=== PATIENT | female | born 1995 | race Caucasian/White ===

== ENCOUNTER 2025-10-30 21:16 | Emergency (ER) | payer MEDICAID, SELFPAY ==
--- OUTSIDE RECORDS SUMMARY | 2018-11-02 13:45 | XMS_ITS | Encounter Summary ---
Author Organization [place] [address] Care Team Providers Care Education General Manager Name Role Phone Unavailable Primary Care Provider Unavailabl e Encounter Details Date Type Department Care Team (Late st Contact Info) Description 11/02/2018 1:45 PM EST [facility] [place] [address] Social History Tobacco Use Types Packs/Day Years Used Date Smoking Tobacco: Never Passive Smoke Exposure: Never Smokeless Tobacco: Never Alcohol Use Standard Drinks/Week Comments Never 0 (1 standard drink = 0.6 oz pur e alcohol) PHQ-2 Answer Date Recorded PHQ-2 Total Score 0 11/07/2024 Sexually Active Control Partners Comments Yes I.U.D. Male Comments No Sex and Gender [...] decisions? No 11/07/2024 11:05 AM Ame Hagen ae, RMA documented in this encounter Plan of Treatment Not on file documented as of this encounter Goals Goal Patient Goal Type Associated Problems Recent Progress Patient-Stated? Author Eat better, exercise, reach an ideal body weight General No Kary Muhammad RMA documented as of this encounter Visit Diagnoses Not on filedocumented in this encounter Additional Health Concerns Infection Onset Date Last Indicated Resolved Time COVID-19 11/02/2022 11/02/2022 11/22/2022 10:1 3 PM EST R/O COVID-19 11/07/2024 11/07/2024 11/07/2024 4:11 PM EST RSV 11/07/2024 11/07/2024 12/22/2024 10:1 2 PM EST documented as of this encounter
--- OUTSIDE RECORDS SUMMARY | 2021-04-30 06:10 | XMS_ITS | Encounter Summary ---
Author Organization [place] [address] Care Team Providers Care Movie Machine Operator Name Role Phone Colon Adwoa Gabriela JACINTO Primary Care Provider [phone] [phone] Encounter Details Date Type Department Care Team (Latest Contact Info) Description 04/30/2021 7:10 AM EDT Hospital Encounter [facility] [address] [facility] [place] [address] Left without seen Social History Tobacco Use Types Packs/Day Years [...] as of this encounter Functional Status * Question Answer Date of Assessment Author Is the person deaf or does he/she have serious difficulty hearing? No 11/07/2024 11:05 AM Ame Hagen ae, RMA Is the person blind or does he/she have serious difficulty seeing even when wearing glasses? No 11/07/2024 11:05 AM EST Amelia, Ame M ae, RMA Does this person have seriou s difficulty walking or climbing stairs? No 11/07/2024 11:05 AM Ame Hagen ae, RMA Does this person have difficulty dressing or bathing? No 11/07/2024 11:05 AM Ame Hagen ae, RMA * Is the person deaf or does he/she have serious difficulty hearing? Answer Date of Assessment Author No 02/07/2021 1:08 PM EDT Darling Lugo MA * Is the person blind or does he/she have serious difficulty seeing even when wearing glasses? Answer Date of Assessment Author No 02/07/2021 1:08 PM EDT Darling Lugo MA * Does this person have serious difficulty walking or climbing stairs? Answer Date of Assessment Author No 02/07/2021 1:08 PM EDT Darling Lugo MA * Does this person have difficulty dressing or bathing? Answer Date of Assessment Author No 02/07/2021 1:08 PM EDT Darling Lugo MA * Because of a physical, mental or emotional condition, does this person have difficulty doing errands alone such as visiting a doctor's office or shopping? Answer Date of Assessment Author No 02/07/2021 1:08 PM EDDarling Peralta MA * PHQ-9 Total Score Answer Date of Assessment Author 0 11/07/2024 11:04 AM Ame Hagen RMA * Question Answer Date of Assessment Author Little interest or pleasure in doing things 0 11/07/2024 11:04 AM Ame Hagen ae, MARCINA Feeling down, depressed, or hopeless 0 11/07/2024 11:04 AM Ame Hagen ae, RMA PHQ-2 Total Score 0 11/07/2024 11:04 AM Ame Hagen RMA documented as of this encounter Mental Status * Question Answer Entry Date Author Because of a physical, menta l or emotional condition, does this person have difficulty doing errands alone such as visiting a doctor's office or shopping? No 11/07/2024 11:05 AM EST Amelia, Ame M ae, RMA Because of a physical, menta l or emotional condition, does this person have serious difficulty concentrating, remembering or making decisions? No 11/07/2024 11:05 AM EST Ame Cisneros ae, RMA * Because of a physical, mental or emotional condition, does this person have serious difficulty concentrating, remembering or making decisions? Answer Entry Date Author No 02/07/2021 1:08 PM EDT Darling Lugo MA documented in this encounter Plan of Treatment Not on file documented as of this encounter Goals Goal Patient Goal Type Associated Problems Recent Progress Patient-Stated? Author Eat better, exercise, reach an ideal body weight General No Jump, Kary Villegas, RMA documented as of this encounter Visit Diagnoses Not on filedocumented in this encounter Additional Health Concerns Infection Onset Date Last Indicated Resolved Time COVID-19 11/02/2022 11/02/2022 11/22/2022 10:1 3 PM EST R/O COVID-19 11/07/2024 11/07/2024 11/07/2024 4:11 PM EST RSV 11/07/2024 11/07/2024 12/22/2024 10:1 2 PM EST documented as of this encounter Care Teams Movie Machine Operator Relationship Specialty Start Date End Date Adwoa Colon APRN [address] [place] [id number] PCP - General Nurse Practitioner 04/06/19 documented as of this encounter
--- OUTSIDE RECORDS SUMMARY | 2023-10-05 14:30 | XMS_ITS | Encounter Summary ---
Author Organization [place] [address] Care Team Providers Care Tracer Clerk Name Role Phone Adwoa Colon APRN Primary Care Provider [phone] Encounter Details Date Type Department Care Team (Late st Contact Info) Description 10/05/2023 2:30 PM EST Hospital Encounter [facility] [place] [address] Social History Tobacco Use Types Packs/Day Years [...] when wearing glasses? No 11/07/2024 11:05 AM mAe Hagen ae, RMA Does this person have [...] shopping? No 11/07/2024 11:05 AM Ame Hagen ae RMA Because of a physical, menta l [...] 11/07/2024 11/07/2024 12/22/2024 10:1 2 PM EST Assessment Noted Time PHQ-9 Depression Total Score: 2 07/21/20 22 10:32 AM EDT PHQ-2 Depression Total Score: 2 07/21/20 22 10:32 AM EDT documented as of this encounter Care Teams Tracer Clerk Relationship Specialty Start Date End Date Adwoa Colon APRN [address] [place] [phone] PCP - General Nurse Practitioner 04/06/19 documented as of this encounter
[2025-10-30 21:25] VITALS: BP 154/77; PULSE 83; RESP 18; TEMP 37; O2SAT 98; BMI 29.1
--- NOTE | 2025-10-30 21:32 | XR_ITS ---
PROCEDURE INFORMATION: Exam: XR Left Foot Exam date and time: 10/30/2025 9:58 PM Age: 30 years old Clinical indication: Injury or trauma; Fall; Other: Pain; Additional info: Possible injury from fall TECHNIQUE: Imaging protocol: Radiologic exam of the left foot. Views: 3 or more views. COMPARISON: CR Ankle L 10/30/2025 9:56 PM FINDINGS: Bones/joints: Comminuted fracture of the proximal 5th metatarsal with 8 mm of distraction of the proximal major distal fracture fragment. There may also be a displaced fracture component extending medially from this area. Nondisplaced fracture of the proximal 4th metatarsal can not be excluded. Soft tissues: Normal. IMPRESSION: Proximal 5th metatarsal fractures and questionable 4th metatarsal fracture.
--- NOTE | 2025-10-30 21:33 | XR_ITS ---
PROCEDURE INFORMATION: Exam: XR Left Ankle Exam date and time: 10/30/2025 9:56 PM Age: 30 years old Clinical indication: Injury or trauma; Fall; Other: Pain; Additional info: Possible injury post fall TECHNIQUE: Imaging protocol: Radiologic exam of the left ankle. Views: 3 or more views. COMPARISON: CR XR ANKLE LT MIN 3V 10/30/2025 9:56 PM FINDINGS: Bones/joints: Acute mildly comminuted fracture at the base of the 5th metatarsal with proximal retraction of the proximal fragment approximately 5 mm as well as medial displacement of the medial fragment approximately 4 mm. Small bony spurring along the lateral base of the 4th metatarsal may represent a small osteochondroma. Soft tissues: Mild soft tissue swelling of the lateral foot. IMPRESSION: Acute mildly comminuted fracture at the base of the 5th metatarsal.
[2025-10-30] MEDS: IBUPROFEN 800 MG TABLET PO (21:41)
[2025-10-30] MEDS: ACETAMINOPHEN 500MG TAB 1000 MG PO (21:43)
--- OUTSIDE RECORDS SUMMARY | 2025-10-30 21:55 | XMS_ITS | Encounter Summary ---
Author Organization [place] [address] Care Team Providers Care Program Management Manager Name Role Phone Cely Colonfer Gabriela JACINTO Primary Care Provider [phone] Encounter Details Date Type Department Care Team (Late st Contact Info) Description 02/21/2019 Lab Requisition [facility] [place] [address] [phone] Encounter for screening for malignant neoplasm of cervix Social History Tobacco Use Types Packs/Day Years Used Date Smoking Tobacco: Never Smokeless Tobacco: Never Alcohol Use Standard Drinks/Week Comments No 0 (1 standard drink = 0.6 oz pur e alcohol) Sexually Active Control Partners Comments Yes Male Comments No Sex and Gender Information Value Date Recorded Sex Assigned at Not on file Legal Sex Female 2:06 AM EDT Gender Identity Not on file Sexual Orientation Not on file documented as of this encounter Functional Status * Is the person deaf or does he/she have serious difficulty hearing? Answer Date of Assessment Author No 12/26/2018 7:41 AM Me amita Mcmanus RN * Is the person blind or does he/she have serious difficulty seeing even when wearing glasses? Answer Date of Assessment Author No 12/26/2018 7:41 AM Me amita Mcmanus RN * Does this person have serious difficulty walking or climbing stairs? Answer Date of Assessment Author No 12/26/2018 7:41 AM Me amita Mcmanus RN * Does this person have difficulty dressing or bathing? Answer Date of Assessment Author No 12/26/2018 7:41 AM Me amita Mcmanus RN * Because of a physical, mental or emotional condition, does this person have difficulty doing errands alone such as visiting a doctor's office or shopping? Answer Date of Assessment Author No 12/26/2018 7:41 AM Me amita Mcmanus RN documented as of this encounter Mental Status * Because of a physical, mental or emotional condition, does this person have serious difficulty concentrating, remembering or making decisions? Answer Entry Date Author No 12/26/2018 7:41 AM Me amita Mcmanus RN documented in this encounter Plan of Treatment Not on file documented as of this encounter Goals Goal Patient Goal Type Associated Problems Recent Progress Patient-Stated? Author Eat better, exercise, reach an ideal body weight General No Jump, Kary Nelly, RMA documented as of this encounter Procedures Procedure Name Priority Date/Time Associated Diagnosis Comments HARNESSMAKER CYTOLOGY REQUEST (PAP ONLY) Routine 02/21/2019 12:00 PM EDT Encounter for screening for malignant neoplasm of cervix documented in this encounter Results * HARNESSMAKER CYTOLOGY REQUEST (PAP ONLY) (02/21/2019 12:00 PM EDT) CASE REPORT Gynecologic Cytology Report Case: [id number] Authorizing Provider: Department, [place] Collected: 02/21/2019 [facility] Screen: Alina Gonzalez CT Received: 02/21/2019 1905 Rescreen: Anika Tolentino CT Specimen: LIQUID-BASED PAP - CERVICAL/ENDOCERV ICAL, Cervix, Endocervical 02/22/2019 3:29 PM EDT [facility] PAP FINAL DIAGNOSIS Negative for intraepithelial lesion or malignancy 02/22/2019 3:29 PM EDT [facility] at 1529 EDT MICROSCOPIC DESCRIPTION Microscopic examination is performed and the findings corroborate the diagnosis. 02/22/2019 3:29 PM EDT [facility] PAP SMEAR ADEQUACY Satisfactory for evaluation 02/22/2019 3:29 PM EDT [facility] ENDOCERVICAL T-ZONE Transformation zone absent. This is not unusual in a woman 02/22/2019 3:29 PM EDT [facility] EMBEDDED IMAGES 9 3:29 PM EDT [facility] PAP DISCLAIMER The Pap Smear is a screening test that aids in the detection of cervical cancer and cancer precursors. Both false positive and false negative results can occur. The test should be used at regular intervals, and positive results should be confirmed before definitive therapy. Processed using the ThinPrep Emissions Technician Automated cytology screening device ([employer]). 02/22/2019 3:29 PM EDT [facility] Thin Prep ENDOCERVICAL STRUCTURE / Unknown 02/21/2019 12:00 PM EDT 02/21/2019 7:05 PM EDT [facility] Department CYTOLOGY ORDERABLES Final Result [facility] [address] [place] [address] documented in this encounter Visit Diagnoses Diagnosis Encounter for screening for malignant neoplasm of cervix Screening for malignant neoplasm of the cervix documented in this encounter Additional Health Concerns Infection Onset Date Last Indicated Resolved Time COVID-19 11/02/2022 11/02/2022 11/22/2022 10:1 3 PM EST R/O COVID-19 11/07/2024 11/07/2024 11/07/2024 4:11 PM EST RSV 11/07/2024 11/07/2024 12/22/2024 10:1 2 PM EST documented as of this encounter Care Teams Program Management Manager Relationship Specialty Start Date End Date Adwoa Colon APRN [address] [place] [phone] PCP - General Nurse Practitioner 04/06/19 documented as of this encounter
--- OUTSIDE RECORDS SUMMARY | 2025-10-30 21:55 | XMS_ITS | Continuity of Care Document ---
Author Organization [facility] Address [address] [place] [address] Phone Care Team Providers Care Accounts Receivable Coordinator Name Role Phone ColonAdwoa Vicente JACINTO Primary Care Provider [phone] Encounters Date Type Department Care Team Description 07/22/2025 Travel 07/22/2025 11:00 AM EDT Telemedicine [facility] Video Visits [address] [place] [address] Tonya Montalvo APRN Upper respiratory tract infection, unspecified type (Primary Dx) 07/22/2025 Nurse Triage SEP Nurse Now [address] [place] [address] Anisha Lal RN 05/12/2025 10:45 AM EDT Clinical Support [facility] [address] [place] [address] Ame Cisneros RMA Encounter for surveillance of injectable contraceptive (Primary Dx) 02/19/2025 10:00 AM EDT [facility] [address] [place] [address] Lisa Li RMA Menorrhagia with regular cycle (Primary Dx); Encounter for surveillance of injectable contraceptive 02/12/2025 Telephone [facility] Crit [address] [place] [address] Lina Finn APRN Appointment Needed 01/25/2025 Refill [facility] [address] [address] Kayla Conti, DO Medication Refill 12/01/2024 9:00 AM EST Clinical Support [address] [address] Lisa Li, A Encounter for surveillance of injectable contraceptive (Primary Dx) 11/07/2024 11:15 AM EST Office Visit [facility] [address] [facility] [place] [address] Adwoa Colon APRN Acute cough (Primary Dx); Viral URI; Major depressive disorder, recurrent episode, mild 09/11/2024 9:00 AM EDT Clinical Support [address] [address] Jennifer Garcia CNA Encounter for initial prescription of injectable contraceptive (Primary Dx) 09/07/2024 10:45 AM EDT [facility] [address] Kayla Conti, DO Well woman exam with routine gynecological exam (Primary Dx); Encounter for IUD removal; Encounter for initial prescription of injectable contraceptive; Menorrhagia with regular cycle 05/27/2024 6:45 PM EDT Office Visit [facility] Urgent Care [place] [address] Shameka Cruz MD Flu-like symptoms (Primary Dx) 03/07/2024 9:30 AM EDT Office Visit [facility] [address] [facility] [place] [address] Adwoa Colon APRN Acute midline low back pain without sciatica (Primary Dx); Acute midline thoracic back pain; Acute cough 02/29/2024 9:15 AM EDT Patient Outreach [address] [address] WIC (APPOINTMENT DEFERRED ) 01/31/2024 9:45 AM EDT Office Visit [facility] Jaskaran Morel Edgardo Ranulfof [facility] [address] [place] [address] Kayla Conti, DO Encounter for IUD insertion (Primary Dx); Menorrhagia with regular cycle 01/27/2024 1:00 PM EST Office Visit [facility] Jaskaran Winchesterf [address] [place] [address] [place] [address] Kayla Conti, DO Encounter for IUD insertion (Primary Dx); Menorrhagia with regular cycle; Cervical stenosis (uterine cervix); Negative test 01/25/2024 11:06 AM EST - 01/25/2024 11:59 PM EST Hospital Encounter [facility] DONNIE [address] [address] History of gestational diabetes Discharge Disposition: Home or Self Care 01/20/2024 Telephone [facility] Gingers Maria Teresa Edgardo Ranulfof [address] [place] [address] [place] [address] Kayla Conti, IUD (Menorrhagia) 01/20/2024 10:45 AM EST Visit [facility] [address] [place] [address] [place] [address] Kayla Conti, care following delivery (Primary Dx); History of gestational diabetes; Menorrhagia with regular cycle 12/09/2023 Telephone [facility] Gingers [facility] [address] [place] [address] [place] [address] Carmenza Gerber MD Other 12/07/2023 8:45 AM EST Patient Outreach [address],LD WIC (WIc PP Cert) 10/29/2023 9:15 AM EST Visit SEP [facility] Crit [address] [place] [address] Yolie Rasmussen MD care following delivery (Primary Dx) 10/20/2023 12:10 AM EST - 10/21/2023 7:17 PM EST Hospital Encounter EDG [address] [place] [address] Amarilis Gill DO Guyton, Lisa M, MD Discharge Disposition: Home or Self Care 10/20/2023 1:18 AM EST Anesthesia Event [facility] [address] [place] [id number] Melvin Henry MD Reinhardt, David, [facility] 10/20/2023 1:25 AM EST - 10/20/2023 3:25 AM EST Surgery ED[facility] [place] [address] Carmenza Gerber MD REPEAT SECTION 10/20/2023 Travel 10/19/2023 Travel 10/19/2023 10:52 PM EST - 10/19/2023 11:19 PM EST Emergency [facility] [address] [facility] [place] [id number] Maria Luisa Childers MD Uterine contractions during (Primary Dx) Discharge Disposition: Home or Self Care 10/18/2023 Travel 10/18/2023 9:00 AM EST ROUTINE FOLLOW UP OB VISIT SEP Women[facility] Crit [address] [place] [address] Amarilis Gill DO Supervision of other normal , antepartum (Primary Dx); Diet controlled gestational diabetes mellitus (GDM) in third trimester; IUD failure, ; History of delivery 10/12/2023 Telephone [facility] Women's [facility] Crit [address] [place] [address] Jenni Scanlon APRN Appointment Needed (NST) 10/12/2023 9:30 AM EST ROUTINE FOLLOW UP OB VISIT [facility] Women's [facility] Crit [address] [place] [address] Jenni Scanlon APRN Supervision of other normal , antepartum (Primary Dx); History of delivery; Diet controlled gestational diabetes mellitus (GDM) in third trimester 10/05/2023 2:30 PM EST Hospital Encounter EDG OB PREADM NURSE [facility] [place] [address] 10/05/2023 10:52 AM EST - 10/05/2023 11:59 PM EST Hospital Encounter EDG PERINATOLOGY [facility] [address] [place] [place] [address] Kayla Conti DO Diet controlled gestational diabetes mellitus (GDM) in third trimester; Low weight gain during in third trimester Discharge Disposition: Home or Self Care 09/27/2023 2:00 PM EST ROUTINE FOLLOW UP OB VISIT [place] [address] [place] [address] Yolie Rasmussen MD Encounter for supervision of other normal in third trimester (Primary Dx); Supervision of other normal , antepartum; History of delivery; Diet controlled gestational diabetes mellitus (GDM) in third trimester; Family history of SIDS (sudden syndrome); IUD failure, 09/13/2023 9:00 AM EDT ROUTINE FOLLOW UP OB VISIT [facility] Cri [address] [place] [address] Celia Dang DO Supervision of other normal , antepartum (Primary Dx); Family history of SIDS (sudden infant syndrome); IUD failure, ; History of delivery; Diet controlled gestational diabetes mellitus (GDM) in third trimester; History of recurrent miscarriages 09/08/2023 1:00 PM EDT Telemedicine [facility] [address] [facility] [address] [place] [phone],LD Gestational diabetes mellitus (GDM) affecting (Primary Dx) 08/31/2023 8:00 AM EDT ROUTINE FOLLOW UP OB VISIT [facility] Cri [address] [place] [address] Kayla Conti DO Encounter for supervision of other normal in third trimester (Primary Dx); Diet controlled gestational diabetes mellitus (GDM) in third trimester; History of delivery 08/27/2023 Telephone [facility] [address] [facility] [address] [place] [address] Adwoa Colon APRN Patient Education 08/26/2023 Orders Only [facility] Women's [facility] Crit [address] [place] [address] Kayla Conti DO Gestational diabetes mellitus (GDM) affecting (Primary Dx) 08/20/2023 4:00 PM EDT ROUTINE FOLLOW UP OB VISIT [facility] [address] [place] [address] Kayla Conti DO Encounter for supervision of other normal in third trimester (Primary Dx); History of delivery; Supervision of other normal , antepartum; Diet controlled gestational diabetes mellitus (GDM) in third trimester; Low weight gain during in third trimester 08/19/2023 Travel 08/18/2023 2:15 PM EDT Patient Outreach [facility] [address] [place] [address] Cindy Avendaño RN WIC (WIC PN Cert) 08/06/2023 Orders Only [facility] Women's [facility] [address] [facility] [place] [address] Ciera Onofre RN Gestational diabetes mellitus (GDM) affecting (Primary Dx) 08/05/2023 9:20 AM EDT - 08/05/2023 11:59 PM EDT Hospital Encounter [facility] [address] [place] [address] Abnormal O'Hayes glucose challenge test, antepartum Discharge Disposition: Home or Self Care 08/03/2023 Orders Only [facility]'s [facility] [address] [facility] [place] [address] Seilhamer, Amarilis M, DO Abnormal O'Hayes glucose challenge test, antepartum (Primary Dx) 08/03/2023 Telephone [facility] WOMENS [facility] [address] [place] [address] Amarilis Gill, DO Scheduled 08/03/2023 8:22 AM EDT - 08/03/2023 11:59 PM EDT Hospital Encounter EDG [facility] DONNIE [address] [place] [address] Encounter for supervision of other normal in second trimester Discharge Disposition: Home or Self Care 08/03/2023 8:00 AM EDT ROUTINE FOLLOW UP OB VISIT [address] [address] Amarilis Glil, DO Encounter for supervision of other normal in third trimester (Primary Dx); History of delivery; IUD failure, ; Supervision of other normal , antepartum; Family history of SIDS (sudden syndrome); History of recurrent miscarriages 07/09/2023 11:00 AM EDT ROUTINE FOLLOW UP OB VISIT [address] [address] Amarilis Gill, DO Encounter for supervision of other normal in second trimester (Primary Dx); Hematuria, unspecified type; BMI 32.0-32.9,adult; History of delivery; IUD failure, ; Supervision of other normal , antepartum 06/23/2023 Travel 06/23/2023 10:52 AM EDT - 06/23/2023 11:59 PM EDT Hospital Encounter EDG PERINATOLOGY [facility] [place] [address] Isela Perez, MANJINDER Supervision of other normal , antepartum Discharge Disposition: Home or Self Care 05/28/2023 10:15 AM EDT ROUTINE FOLLOW UP OB VISIT [facility] [address] [place] [address] Kayla Conti, DO Supervision of other normal , antepartum (Primary Dx); Family history of SIDS (sudden syndrome); IUD failure, ; Stress at home; History of delivery 04/30/2023 3:34 PM EDT - 04/30/2023 11:59 PM EDT Hospital Encounter EDG LAB DONNIE [address] [id number] First trimester screening Discharge Disposition: Home or Self Care 04/28/2023 Patient Outreach [facility] [address] [place] [address] Michelle Nettles Transportation 04/27/2023 Patient Outreach [facility] [address] [place] [address] Michelle Nettles Referral 04/27/2023 2:45 PM EDT INITIAL VISIT [address] [place] [address] Isela Perez, MANJINDER Supervision of other normal , antepartum (Primary Dx); History of delivery; Family history of SIDS (sudden syndrome); IUD failure, ; First trimester screening; Stress at home 04/20/[address] [place] [address] Eden Miranda RN Ultrasound 04/20/2023 10:55 AM EDT - 04/20/2023 11:59 PM EDT Hospital Encounter EDG PERINATOLOGY [facility] [place] [address] Lina Finn APRN Uterine size date discrepancy , first trimester Discharge Disposition: Home or Self Care 04/16/[address] [address] Eden Miranda, VIDHYA Ultrasound 04/14/2023 11:30 AM EDT INITIAL VISIT [place] [address] [facility] [place] [address] Eden Miranda RN First trimester screening (Primary Dx); Uterine size date discrepancy , first trimester 12/29/2022 4:30 PM EST Office Visit [address] [place] [address] Malcolm Herring MD Acute bacterial sinusitis (Primary Dx) 11/17/2022 10:30 AM EST Office Visit [address] [place] [address] Adwoa Colon APRN [place] eye disease of left eye (Primary Dx) 11/02/2022 11:15 AM EST Office Visit [address] [place] [address] Serena Mckeon MD Person under investigation for COVID-19 (Primary Dx); COVID-19 virus detected; Nausea 10/29/2022 1:45 PM EST Office Visit [address] [place] [address] Adwoa Colon APRN Acute otitis media with effusion of left ear (Primary Dx) 10/28/[address] [address] Adwoa Colon APRN Appointment Needed (Left ear pain ) 09/29/2022 Patient Outreach [place] [address] [place] [address] Adwoa Colon APRN Central Patient Navigator Outreach (PAP) 09/22/2022 2:15 PM EDT Telemedicine [address] [place] [address] Adwoa Colon APRN Otalgia of both ears (Primary Dx) 09/22/[address] [place] [address] Adwoa Colon APRN Appointment Needed (ears) 07/21/2022 Telephone [facility] [address] [place] [address] Adwoa Colon APRN Results (XR LUMBAR SPINE AP AND LATERAL) 07/21/2022 Travel 07/21/2022 11:07 AM EDT - 07/21/2022 11:59 PM EDT Hospital Encounter [facility] XRAY [address] [place] [address] Acute midline low back pain with left-sided sciatica Discharge Disposition: Home or Self Care 07/21/2022 10:30 AM EDT Office Visit [facility] [address] [place] [address] Adwoa Colon APRN Acute midline low back pain with left-sided sciatica (Primary Dx) 02/19/2022 Patient Outreach [facility] [address] [place] [address] Adwoa Colon APRN Central Patient Navigator Outreach (PAP) 01/31/2022 Orders Only [facility] [address] [place] [address] Adwoa Colon APRN 01/30/2022 11:00 AM EST Office Visit [facility] [address] [place] [address] Adwoa Colon APRN Well adult exam (Primary Dx); Situational depression; Tired 12/12/2021 4:00 PM EST Office Visit [facility] [address] [place] [address] [address] [place] [address] Amarilis Gill, IUD check up (Primary Dx) 11/10/2021 1:30 PM EST Office Visit [facility] [address] [facility] [address] [place] [address] Amarilis Gill, DO Procedure contraindicated (Primary Dx); Encounter for IUD insertion 09/15/2021 Telephone [facility] Jaskaran Singh [facility] [address] [place] [address] Amarilis Gill DO Prior Authorization (iud) 09/15/2021 Travel 09/15/2021 9:00 AM EDT Visit [facility] Jaskaran Singh [facility] [address] [place] [address] Amarilis Gill DO Post-operative state (Primary Dx); History of delivery; Menorrhagia with regular cycle 08/11/2021 Travel 08/11/2021 1:10 PM EDT Visit [facility] Jaskaran Singh [facility] [address] [place] [address] Carmenza Gerber MD Post-operative state (Primary Dx); Delivery of by section 08/01/2021 10:07 AM EDT - 08/03/2021 5:02 PM EDT Hospital Encounter EDG [address] [place], [place] [id number] Alan Guzman MD Discharge Disposition: Home or Self Care 08/01/2021 Travel 08/01/2021 12:00 PM EDT - 08/01/2021 2:00 PM EDT Surgery [facility]G [facility] [place] [address] Alan Guzman MD REPEAT SECTION 08/01/2021 1:25 PM EDT Anesthesia Event EDG [facility] [place] [address] Joe Hollis MD Merkle Serey, Jennifer L, NP 07/29/2021 Travel 07/29/2021 3:20 PM EDT ROUTINE FOLLOW UP OB VISIT [facility] Jaskaran [facility] Samantha [address] [place] [address] [address] [place] [address] Yolie Rasmussen MD Encounter for supervision of other normal in third trimester (Primary Dx); History of delivery 07/29/2021 12:36 PM EDT - 07/29/2021 11:59 PM EDT Hospital Encounter ED[facility] DONNIE DS [address] [place] [address] Covid19, Edg Lab [place] Ds Pre-op testing; Encounter for laboratory testing for COVID-19 virus Discharge Disposition: Home or Self Care 07/24/2021 Travel 07/24/2021 2:20 PM EDT ROUTINE FOLLOW UP OB VISIT [facility] [address] [place] [address] Yolie Rasmussen MD Encounter for supervision of other normal in third trimester (Primary Dx); History of delivery; BMI 32.0-32.9,adult; Abnormal O'Hayes glucose challenge test, antepartum 07/15/2021 Travel 07/15/2021 8:40 AM EDT ROUTINE FOLLOW UP OB VISIT [address] [place] [address] Lina Finn APRN Encounter for supervision of other normal in third trimester 07/07/2021 Travel 07/07/2021 1:20 PM EDT ROUTINE FOLLOW UP OB VISIT [facility] Women's H Ed[facility] [address] [facility] [address] [place] [address] Isela Perez CNFei Encounter for supervision of other normal in third trimester (Primary Dx); History of delivery 07/04/2021 Travel 07/04/2021 10:50 AM EDT ROUTINE FOLLOW UP OB VISIT [facility] Women's H [facility] [address] [facility] [address] [place] [address] Alan Guzman MD Encounter for supervision of other normal in third trimester (Primary Dx) 06/26/2021 1:00 PM EDT Office Visit [facility] OB PREADM NURSE [address] [place] [address] 06/20/2021 Travel 06/20/2021 1:10 PM EDT ROUTINE FOLLOW UP OB VISIT [facility] Women's [address] [place] [address] Carmenza Gerber MD Encounter for supervision of other normal in third trimester (Primary Dx); Abnormal O'Hayes glucose challenge test, antepartum; History of delivery 06/16/2021 Travel 06/16/2021 9:15 AM EDT Office Visit [facility] [address] [place] [address] Adwoa Colon APRN Pain in both lower extremities (Primary Dx); Third trimester 06/13/2021 Travel 06/13/2021 9:20 AM EDT ROUTINE FOLLOW UP OB VISIT [facility] Jaskaran [address] [place] [address] Kayla Conti DO Encounter for supervision of other normal in third trimester (Primary Dx); History of delivery 05/30/2021 Travel 05/30/2021 1:00 PM EDT ROUTINE FOLLOW UP OB VISIT [facility] Gingers [address] [place] [address] Alan Guzman MD History of delivery (Primary Dx); Encounter for supervision of other normal in second trimester 05/19/2021 Telephone [facility] Womens [address] [address] Lina Finn APRN Scheduled ( INFORMATION ) 05/16/2021 Travel 05/16/2021 1:00 PM EDT ROUTINE FOLLOW [facility] [address] [place] [address] Lina Finn APRN Abnormal O'Hayes glucose challenge test, antepartum (Primary Dx); Encounter for supervision of other normal in second trimester 04/30/2021 8:45 AM EDT - 04/30/2021 11:59 PM EDT Hospital Encounter EDG LAB DONNIE DS [address] [place] [address] Abnormal O'Hayes glucose challenge test, antepartum Discharge Disposition: Home or Self Care 04/30/2021 Orders Only [facility] [address] [place] [address] Alan Guzman MD Abnormal O'Hayes glucose challenge test, antepartum (Primary Dx) 04/30/2021 7:10 AM EDT Hospital Encounter [facility] [address] [place] [address] Left without seen 04/30/2021 Travel 04/17/2021 11:11 AM EDT - 04/17/2021 11:59 PM EDT Hospital Encounter ED[facility] LAB DONNIE DS [address] [place] [address] Encounter for supervision of other normal in second trimester Discharge Disposition: Home or Self Care 04/17/2021 Travel 04/14/2021 Travel 04/14/2021 4:00 PM EDT ROUTINE FOLLOW UP OB VISIT [facility]'s [address] [place] [address] Alan Guzman MD Encounter for supervision of other normal in second trimester (Primary Dx) 03/26/2021 Telephone [facility] Women's [address] [address] Eden Dudley RN Abdominal Pain 03/21/2021 Travel 03/21/2021 1:15 PM EDT - 03/21/2021 11:59 PM EDT Hospital Encounter EDG PERINATOLOGY [facility] [place] [address] Jenni Scanlon APRN Encounter for supervision of other normal in second trimester; Circumvallate placenta, second trimester Discharge Disposition: Home or Self Care 03/14/2021 Travel 03/14/2021 1:50 PM EDT ROUTINE FOLLOW UP OB VISIT [facility] Women's [address] [place] [address] Alan Guzman MD Encounter for supervision of other normal in second trimester (Primary Dx); History of delivery 02/26/2021 Travel 02/19/2021 [facility] [address] [place] [address] Jenni Scanlon APRN Encounter for supervision of other normal in second trimester (Primary Dx); Circumvallate placenta, second trimester 02/14/2021 Travel 02/14/2021 12:57 PM EDT - 02/14/2021 11:59 PM EDT Hospital Encounter EDG PERINATOLOGY [facility] [place] [address] Jenni Scanlon APRN Uterine size date discrepancy Discharge Disposition: Home or Self Care 02/14/2021 10:40 AM EDT ROUTINE FOLLOW [facility] [address] [place] [address] Yolie Rasmussen MD Encounter for supervision of other normal in second trimester (Primary Dx); History of delivery 02/07/2021 1:15 PM EDT Office Visit [facility] [address] [place] [address] Adwoa Colon APRN Nausea and vomiting, intractability of vomiting not specified, unspecified vomiting type (Primary Dx); Second trimester 02/06/2021 Travel 01/28/2021 Travel 01/20/2021 2:28 PM EST - 01/20/2021 11:59 PM EST Hospital Encounter ED[facility] LAB DONNIE DS [address] [place] [address] First trimester screening; BMI 32.0-32.9,adult Discharge Disposition: Home or Self Care 01/20/2021 Travel 01/20/2021 Telephone [facility] Women's [facility] [address] [facility] [place] [address] Tatiana Evangelista, VIDHYA Results 01/15/2021 Travel 01/15/2021 Telephone [facility] [address] [facility] [address] Tatiana Evangelista, VIDHYA Appointment Needed 01/15/2021 9:30 AM EST Telemedicine [facility] [address] [facility] [place] [address] First trimester screening (Primary Dx) 01/15/2021 11:30 AM EST INITIAL VISIT [address] [place] [address] Jenni Scanlon, SPECIAL SERVICE REPRESENTATIVE Encounter for supervision of other normal in second trimester (Primary Dx); First trimester screening; Vaginal discharge; History of delivery; BMI 32.0-32.9,adult 01/14/2021 Travel 12/16/[address] [place] [address] Jenni Scanlon, SPECIAL SERVICE REPRESENTATIVE Other 12/16/2020 Travel 09/25/2019 Patient Outreach [facility] [address] [place] [address] Jair Grant RN ED Follow-Up Call 09/23/2019 11:45 PM EDT - 09/24/2019 1:07 AM EDT Emergency [facility] [address] [facility] [place] [address] Onofre Soriano MD Irritable bowel syndrome with diarrhea (Primary Dx) Discharge Disposition: Home or Self Care 09/23/2019 Travel 09/21/2019 Telephone [facility] [address] [place] [address] Merlene Cueva CMA Prior Authorization (brian gilliland a PA) 09/21/2019 10:15 AM EDT Office Visit [facility] [address] [place] [address] Serena Mckeon MD Irritable bowel syndrome with diarrhea (Primary Dx) 09/19/2019 8:01 AM EDT - 09/19/2019 11:59 PM EDT Hospital Encounter [facility] Ultrasound [address] [place] [address] Malcolm Herring MD Right sided abdominal pain Discharge Disposition: Home or Self Care 09/15/2019 1:50 PM EDT - 09/15/2019 11:59 PM EDT Hospital Encounter [facility] [address] [place] [address] Chronic diarrhea Discharge Disposition: Home or Self Care 09/14/2019 1:45 PM EDT Office Visit [facility] [address] [place] [address] Malcolm Herring MD Right sided abdominal pain (Primary Dx); Pyuria; Chronic diarrhea; Need for influenza vaccination 08/11/2019 12:30 PM EDT - 08/11/2019 11:59 PM EDT Hospital Encounter [place] [address] [place] [address] Cindy Vallejo, PT Discharge Disposition: Home or Self Care 08/03/2019 1:00 PM EDT - 08/03/2019 11:59 PM EDT Hospital Encounter [address] [place] [address] Cindy Vallejo, PT Discharge Disposition: Home or Self Care 08/01/2019 1:00 PM EDT - 08/01/2019 11:59 PM EDT Hospital Encounter [address] [place] [address] Cindy Vallejo, PT Discharge Disposition: Home or Self Care 07/21/2019 11:53 AM EDT - 07/21/2019 11:59 PM EDT Hospital Encounter [address] [place] [address] Cindy Vallejo, PT Discharge Disposition: Home or Self Care 07/18/2019 3:23 PM EDT - 07/18/2019 11:59 PM EDT Hospital Encounter [address] [address] Cindy Vallejo, PT Discharge Disposition: Home or Self Care 07/14/2019 11:49 AM EDT - 07/14/2019 11:59 PM EDT Hospital Encounter [facility] Physical Therapy [facility] [address] [place] [address] Cindy Vallejo, PT Discharge Disposition: Home or Self Care 07/06/2019 1:45 PM EDT - 07/06/2019 11:59 PM EDT Hospital Encounter [facility] [address] [place] [address] Chronic left shoulder pain Discharge Disposition: Home or Self Care 07/06/2019 1:15 PM EDT Office Visit [facility] [address] [place] [address] Serena Mckeon MD Chronic left shoulder pain (Primary Dx); Major depressive disorder, recurrent episode, mild 05/16/2019 11:15 AM EDT Office Visit [facility] [address] [place] [address] Serena Mckeon MD Major depressive disorder, recurrent episode, mild (Primary Dx) 04/06/2019 Orders Only [facility] [address] [place] [address] Adwoa Colon APRN Vitamin D deficiency (Primary Dx) 04/06/2019 9:00 AM EDT Office Visit [place] [address] [place] [address] Adwoa Colon APRN Well adult exam (Primary Dx); Trapezius muscle spasm 02/21/2019 Lab Requisition [facility] [place] [address] Department, [place] [facility] Encounter for screening for malignant neoplasm of cervix 01/30/2019 Telephone [facility]'s [employer] [address] [place] [address] Yolie Rasmussen MD Precertification 01/30/2019 1:00 PM EDT Visit [facility] [address] [place] [address] Yolie Rasmussen MD care following delivery (Primary Dx); Encounter for initial prescription of contraceptive pills 01/06/2019 1:40 PM EST Visit [facility] [address] [place] [address] Alan Guzman MD Status post (Primary Dx) 12/27/2018 2:00 PM EST - 12/27/2018 11:59 PM EST Hospital Encounter [place] [address] [place] [address] Discharge Disposition: Home or Self Care 12/23/2018 7:37 AM EST - 12/26/2018 2:23 PM EST Hospital Encounter [place] [address] [place] [address] Magnolia Spangler DO Discharge Disposition: Home or Self Care 12/24/2018 12:30 AM EST - 12/24/2018 2:30 AM EST Surgery [facility] [place] [address] Magnolia Spangler DO PRIMARY SECTION 12/23/2018 2:04 PM EST Anesthesia Event [facility] [place] [address] Bushra Burris MD Wells, Meagan, PHYLLIS 12/23/2018 7:30 AM EST - 12/23/2018 7:36 AM EST Hospital Encounter [place] [address] Discharge Disposition: Home or Self Care 12/20/2018 1:10 PM EST ROUTINE FOLLOW UP OB VISIT [facility] [address] [place] [address] Magnolia Spangler DO Encounter for supervision of other normal in third trimester (Primary Dx) 12/16/2018 1:10 PM EST ROUTINE FOLLOW UP OB VISIT [facility]f [address] [place] [address] Jessica Sandoval MD Encounter for supervision of other normal in third trimester (Primary Dx) 12/07/2018 1:10 PM EST ROUTINE FOLLOW UP OB VISIT [facility] Women's [address] [place] [address] Magnolia Spangler, Encounter for supervision of other normal in third trimester (Primary Dx); Encounter for supervision of other normal in first trimester 12/02/2018 9:20 AM EST ROUTINE FOLLOW UP OB VISIT [facility] Women's [facility] [address] [facility] [place] [address] Magnolia Spangler, Encounter for supervision of other normal in first trimester (Primary Dx) 11/25/2018 4:00 PM EST ROUTINE FOLLOW UP OB VISIT [facility]'s [address] [place] [address] Alan Guzman MD Encounter for supervision of other normal in third trimester (Primary Dx); Screen for STD (sexually transmitted disease) 11/17/2018 5:45 PM EST Office Visit [facility] Urgent Care [address] [address] Rudolph Pacheco, DO Viral URI (Primary Dx) 11/11/2018 1:40 PM EST ROUTINE FOLLOW UP OB VISIT [facility] [address] [place] [address] Alan Guzman MD Encounter for supervision of other normal in third trimester (Primary Dx); Pyelectasis of fetus on ultrasound; Decreased movements in third trimester, single or unspecified fetus 11/07/2018 Telephone [facility] LDRP [facility] [place] [address] Jessica Sandoval MD Results (urine results) 11/02/2018 2:39 PM EST - 11/02/2018 11:59 PM EST Hospital Encounter [facility] PERINATOLOGY US [facility] [place] [address] Magnolia Spangler DO Pyelectasis of fetus on ultrasound Discharge Disposition: Home or Self Care 11/02/2018 1:45 PM EST Hospital Encounter [facility] OB PREADM NURSE [facility] [place] [address] 10/26/2018 4:00 PM EST ROUTINE FOLLOW UP OB VISIT [facility] [address] [place] [address] Jessica Sandoval MD Supervision of other normal , antepartum (Primary Dx); Pyelectasis of fetus on ultrasound 10/12/2018 1:20 PM EST ROUTINE FOLLOW UP OB VISIT [address] [place] [address] Yolie Rasmussen MD Encounter for supervision of other normal in third trimester (Primary Dx); Pyelectasis of fetus on ultrasound; Encounter for supervision of other normal in first trimester 09/17/2018 10:18 AM EDT - 09/17/2018 11:59 PM EDT Hospital Encounter [facility] DS [address] [place], [place] [id number] Encounter for supervision of other normal in second trimester Discharge Disposition: Home or Self Care 09/14/2018 1:10 PM EDT ROUTINE FOLLOW UP OB VISIT [address] [place] [phone] Magnolia Spangler DO Encounter for supervision of other normal in second trimester (Primary Dx); Pyelectasis of fetus on ultrasound 08/17/2018 2:43 PM EDT - 08/17/2018 11:59 PM EDT Hospital Encounter [facility] PERINATOLOGY [facility] [place] [address] Yolie Rasmussen MD Encounter for repeat ultrasound of pyelectasis, antepartum, single or unspecified fetus Discharge Disposition: Home or Self Care 08/17/2018 2:30 PM EDT ROUTINE FOLLOW UP OB VISIT [address] [place] [phone] Yolie Rasmussen MD Pyelectasis of fetus on ultrasound 08/09/2018 Telephone [facility] [address] [place] [address] Yolie Rasmussen MD Results 08/04/2018 4:00 PM EDT Clinical Support [facility] [address] [place] [address] Andreia Gray RDMS Encounter for anatomic survey (Primary Dx) 07/20/2018 1:40 PM EDT ROUTINE FOLLOW UP OB VISIT [facility] [address] [place] [phone] Alan Guzman MD Encounter for supervision of other normal in second trimester (Primary Dx) 06/22/2018 Telephone [facility] [address]rd [place] [address] Romi Quiroga, Clerical Staff Advice Only (Genetic counseling does not need authorization. The patient will be contacted in order to facilitate scheduling an appointment with the genetic counselors. ) 06/22/2018 1:10 PM EDT ROUTINE FOLLOW UP OB VISIT [address] [place] [phone] Magnolia Spangler DO Encounter for supervision of other normal in second trimester (Primary Dx); Encounter for supervision of other normal in first trimester 06/03/2018 4:44 PM EDT - 06/03/2018 11:59 PM EDT Hospital Encounter [facility] [address] [place] [address] Encounter for supervision of other normal in first trimester Discharge Disposition: Home or Self Care 05/24/2018 1:00 PM EDT Clinical Support [facility] [address] [place] [address] Andreia Gray, RDMS Uterine size date discrepancy, first trimester (Primary Dx) 05/24/2018 1:30 PM EDT INITIAL VISIT [facility] [address] [place] [address] Jenni Scanlon, SPECIAL SERVICE REPRESENTATIVE Encounter for supervision of other normal in first trimester (Primary Dx); History of recurrent miscarriages 04/20/2018 Patient Outreach [facility] [address] [facility] [place] [address] Ginger, Debby Ella, SASH CLAMP OPERATOR Care Transition; ED Follow-Up Call 04/19/2018 7:05 PM EDT - 04/19/2018 9:11 PM EDT Emergency [facility] [address] [facility] [place] [address] Malcolm Vergara MD Dozier, Emily J, DO Upper abdominal pain (Primary Dx) Discharge Disposition: Home or Self Care 04/19/2018 Patient Outreach [address] [address] Ginger, Debby Ella, SASH CLAMP OPERATOR Care Transition; ED Follow-Up Call 04/15/2018 8:04 PM EDT - 04/15/2018 9:28 PM EDT Emergency [place] [address] [place], [place] [id number] Vic Wilson MD Positive test (Primary Dx) Discharge Disposition: Home or Self Care 04/11/2018 Patient Outreach [facility] [address] [place] [address] Ginger, Debby Ella, SASH CLAMP OPERATOR Care Transition; ED Follow-Up Call 04/08/2018 5:48 PM EDT - 04/08/2018 6:46 PM EDT [facility] [address] [facility] [place] [address] Kvng Nicolas MD test negative (Primary Dx) Discharge Disposition: Home or Self Care 03/15/2018 Patient Outreach [address] [address] GingerDevonteDebby Ella, SASH CLAMP OPERATOR Care Transition; ED Follow-Up Call 03/14/2018 4:50 PM EDT - 03/14/2018 6:20 PM EDT Emergency [facility] [address] [place] [address] Fawad Sullivan MD Sprain of collateral ligament of right knee, initial encounter (Primary Dx) Discharge Disposition: Home or Self Care 03/08/2018 Patient Outreach [facility] [address] [place] [address] Debby Miles LPN Care Transition; ED Follow-Up Call 03/07/2018 6:29 PM EDT - 03/07/2018 8:36 PM EDT [facility] [address] [place] [address] Erich Wyman MD Thoracic myofascial strain, initial encounter (Primary Dx) Discharge Disposition: Home or Self Care 02/07/2018 12:59 PM EDT - 02/07/2018 2:50 PM EDT [facility] [address] [place] [address] Mildred Islas MD Dizziness (Primary Dx); Weakness Discharge Disposition: Home or Self Care 03/26/2017 Orders Only [facility] [address] [place] [address] Natasha Banerjee MD Vaginal bleeding in , first trimester (Primary Dx) 03/24/2017 7:38 PM EDT - 03/24/2017 11:59 PM EDT Hospital Encounter [facility] LAB [facility] [address] Encounter for supervision of normal in first trimester, unspecified ; Amenorrhea; Vaginal bleeding in , first trimester Discharge Disposition: Home or Self Care 03/24/2017 10:53 AM EDT - 03/24/2017 7:37 PM EDT Hospital Encounter [facility] DON[facility] DS [address] [place] [address] Encounter for supervision of normal in first trimester, unspecified ; Amenorrhea; Vaginal bleeding in , first trimester Discharge Disposition: Home or Self Care 03/24/2017 10:00 AM EDT [facility] [address] [place] [phone] Deisy Castellanos CCMA Amenorrhea (Primary Dx); Encounter for supervision of normal in first trimester, unspecified ; Vaginal bleeding in , first trimester 03/16/2017 Patient Outreach [facility] Jade [address] [place] [phone] Debby Miles LPN Care Transition; Care Management - Chart Review; ED Follow-Up Call 03/15/2017 7:43 PM EDT - 03/15/2017 9:03 PM EDT [facility] [address] [facility] [place] [address] Onofre Soriano MD Urinary tract infection without hematuria, site unspecified (Primary Dx); First trimester Discharge Disposition: Home or Self Care 02/19/2017 Patient Outreach [facility] [address] [facility] [place] [address] Kary Muhammad RMA ED Follow-Up Call 02/17/2017 8:52 PM EDT - 02/17/2017 10:11 PM EDT [facility] [address] [place] [address] Davion Gilliland DO Cough (Primary Dx); , unspecified gestational age Discharge Disposition: Home or Self Care 08/04/2016 Patient Outreach [facility] [address] [place] [address] Isela Chavis RMA ED Follow-up 07/31/2016 Patient Outreach [facility] [address] [facility] [place] [address] Denise Dickson LPN Care Management - Chart Review (Chart Reveiw-Patient discharged from ED 07/31/2016); ED Follow-Up Call (Initial Follow Up ) 07/30/2016 10:48 PM EDT - 07/31/2016 1:25 AM EDT [facility] [address] [place] [address] Gomez Toussaint MD Urinary tract infection, site unspecified (Primary Dx) Discharge Disposition: Home or Self Care 07/22/2016 1:15 PM EDT - 07/22/2016 2:43 PM EDT Emergency [facility] [address] [place] [address] Mildred Islas MD Tension-type headache, not intractable, unspecified chronicity pattern (Primary Dx) Discharge Disposition: Home or Self Care 12/17/2014 11:15 AM EST Office Visit [facility] [address] [place] [address] Malcolm Herring MD LOM (left otitis media) (Primary Dx); Cervical lymphadenitis 05/17/2014 Abstract [facility] [address] [facility] [address] [place] [address] Magnolia Lal MA 05/16/2014 4:30 PM EDT Office Visit [facility] [address] [facility] [place] [address] Serena Mckeon MD TMJ (dislocation of temporomandibular joint), initial encounter (Primary Dx); Jaw snapping 03/29/2013 4:30 PM EDT Office Visit [facility] [address] [facility] [place] [address] Neal Nguyen MD Sinusitis (Primary Dx); AR (allergic rhinitis) 08/17/2011 9:40 AM EDT Office Visit [facility] [address] [facility] [place] [address] Neal Nguyen MD Sinusitis (Primary Dx); Need for influenza vaccination 07/17/2011 6:14 PM EDT - 07/17/2011 7:06 PM EDT [facility] [address] [facility] [place] [address] Davion Gilliland DO Contusion of right shoulder Discharge Disposition: Home or Self Care 01/20/2001 5:47 AM EST - 01/20/2001 11:59 PM EST Hospital Encounter [facility] RADIOLOGY [facility] Trae Bright 01/13/2001 4:57 PM EST - 01/13/2001 11:59 PM EST Hospital Encounter [facility] LAB [facility] Trae Bright 12/01/2000 7:42 PM EST - 12/01/2000 11:59 PM EST Hospital Encounter [facility] LAB Erich Rosenberg MD 09/24/2000 5:16 PM EST - 09/24/2000 11:59 PM EST Hospital Encounter [facility] LAB Erich Rosenberg MD 07/17/2000 8:59 PM EDT - 07/17/2000 10:00 PM EDT Emergency [facility] EPIC CON UNK GRT Ole Lou MD 03/22/1999 12:25 PM EDT - 03/22/1999 11:59 PM EDT Hospital Encounter [facility] EPIC CON UNK EDG Shirley Chinchilla 11/17/1998 12:20 PM EST - 11/17/1998 1:30 PM EST Emergency [facility] EPIC CON UNK GRT Darrius Jha MD 1995 7:20 PM EDT - 1995 11:59 PM EDT Hospital Encounter [facility] EPIC CON UNK [facility] Allergies Active Allergy Reactions Criticality Noted Date Comments Shellfish Containing Products Swelling 2023 Medications acetaminophen (TYLENOL) 500 mg Oral Tablet Take 500 mg by mouth every 6 hours as needed for Pain. Active medroxyPROGESTERo ne (DEPO-PROVERA) 150 mg/mL IM SyringeIndication s:Encounter for initial prescription of injectable contraceptive,Men orrhagia with regular cycle Inject 1 mL into the muscle Every 90 Days. 1 Each 4 09/07/2024 Active escitalopram oxalate (LEXAPRO) 10 mg Oral TabletIndications :Major depressive disorder, recurrent episode, mild Take 1 Tablet by mouth daily. 90 Tablet 1 11/07/2024 Active Brompheniramine-P seudoeph-DM 2-30-10 mg/5 mL Oral SyrupIndications: Upper respiratory tract infection, unspecified type Take 10 mL by mouth every 4 hours as needed (Cough, Nasal Congestion, Allergies). 240 mL 07/22/2025 Active ibuprofen (ADVIL;MOTRIN) 600 mg Oral TabletIndications :Upper respiratory tract infection, unspecified type Take 1 Tablet by mouth every 8 hours. 20 Tablet 07/22/2025 Active Active Problems Patient Care Coordination No te Formatting of this note migh t be different from the original. [facility] audit completed by Gretel Reyes RN on 02/26/2023. Problem Noted Date Diagnosed Date Diet controlled gestational diabetes mellitus (GDM) in third trimester 08/20/2023 Overview (09/27/2023): diabetes education completed 09/08 Growth ultrasounds q 4 wk ordered - scheduled 09/27 Family history of SIDS (sudden synd paola) 04/27/2023 Overview (04/27/2023): 01/16/22 baby passed at 5 months 'Ester' Stress at home 04/27/2023 Overview (04/27/2023): No car, financial concerns Ref to social work BMI 32.0-32.9,adult 01/21/2021 Overview (01/21/2021): HgbA1c 5.5 History of recurrent miscarriages 05/24/2018 Overview (05/24/2018): 2016, 2017 (4-5 wks per pt?) AR (allergic rhinitis) 03/29/2013 Resolved Problems Problem Noted Date Diagnosed Date Resolved Date Normal labor 10/20/2023 10/29/2023 Low weight gain during pregn karmen in third trimester 09/01/2023 10/29/2023 Overview (09/01/2023): No weight gain at 32wk - growth US ordered IUD failure, 04/27/20232022 Overview (05/28/2023): IUD placed 10/2021. With string check 11/2021 IUD not seen on dating and viability US 03/2023. Strings not seen on exam 04/2023 for new OB visit. IUD check up 12/12/2021 04/27/2023 Menorrhagia with regular cycle 09/15/2021 04/27/2023 Post-operative state 09/15/2021 023 Acute blood loss anemia 08/02/2021 06/0 04/2023 Delivery of by section 08/01/2021 04/27/2023 delivery delivered 08/01/2021 04/27/2023 Abnormal O'Hayes glucose challenge test, antepartum 05/16/2021 08/01/2021 Overview (05/16/2021): GCT-170 GTT-passed History of delivery 01/15/2021 10/29/2023 Overview (08/20/2023): X 2 RCS 39w scheduled 10/22 (Bridget) Supervision of other normal , antepartum 01/15/2021 10/29/2023 Overview (08/20/2023): pt PNL: nml GS declined Dating per LMP and confirmed by early US Anatomy US scheduled 06/23 - normal and complete GCT 192 -- failed 3 hour CBC nml Failure of descent in labor, delivered, current hospitalization 12/24/2018 01/06/2019 delivery delivered 12/24/2018 01/06/2019 Pyelectasis of fetus on ultrasound 08/09/2018 01/06/2019 Overview (11/08/2018): RESOLVED- 32 wks ULTRASOUND FINDINGS: The biometric measurements are consistent with menstrual dates. The amniotic fluid volume is normal. The following anatomic abnormalities were identified: Mild bilateral pyelectasis is identified with the renal pelves ranging from right = 3.5 mm - 5.6 mm, left = 3.2 mm - 4.3 mm. The remaining renal stroma and calycies appear normal. 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 Her partner was present throughout. I explained with the use of imaging the findings noted above. With regard to the polydactyly, I explained the potential need for surgical removal as a minor procedure in the period. With regard to the pyelectasis, I discussed with the patient and her partner that this most likley is physiologic and represents vesico-ureteral reflux. The possibility for a uretero-pelvic junction obstruction cannot be excluded however, and third-trimester follow-up is warranted. Discussed that some pediatricians initiate prophylactic antibiotics after given concerns for the potential of ascending UTI / pyelonephritis. With regard to the combination of these findings, I did review the potential for an underlying genetic abnormality - specifically Trisomy 13. I reviewed that the likelihood for this is low, but I explained that there are options for genetic testing and screening. I urged her and to consider these options and to let us know if she would like to pursue testing during . Recommend notifying the communications editor at of this finding. Additionally, I recommend a follow-up OB US at 32 weeks. Encounter for supervision of normal in first trimester 05/24/2018 01/06/2019 Overview (12/07/2018): pt GS: requested, referral placed ANDRÉS by LMP (US @ 9 wks c/w LMP ANDRÉS) PNL's nml Anatomy suboptimal, polydactyl on left, pyelectasis bilateral, 3VC, ant placenta - Level II ordered (phone message left) > 32 6/7 wks EFW 44% left polydactyl still noted, right hand not seen, pyelectasis resolved GCT 114 S/p tdap Immunizations Immunization Administration Dates Next Due Influenza Patient Reported 09/04/2014 Influenza Vaccine Quadrivalent 09/14/2019 Influenza Vaccine Quadrivalent PF 12/24/2018 Influenza Vaccine, Unspecified Formulation 08/17 Tdap 08/20/2023,05/23/2021,11/12/2018 Family History Medical History Relation Name Comments Cancer Father pancreatic Kidney Disease Father transplant Relation Name Status Comments Father Maternal Grandfather Maternal Grandmother Mother Alive Paternal Grandfather Paternal Grandmother Social History Smoking Status as of 10/30/2025 Tobacco Use Types Packs/Day Years Used Date Smoking Tobacco: Never Assessed PHQ-2 Answer Date Recorded PHQ-2 Total Score 0 11/07/2024 Sex and Gender Information Value Date Recorded Sex Assigned at Not on file Legal Sex Female 2:06 AM EDT Gender Identity Not on file Sexual Orientation Not on file Last Filed Vital Signs Vital Sign Reading Time Taken Comments Blood Pressure 122/68 11/07/2024 11:05 AM EST Pulse 103 11/07/2024 11:05 AM EST Temperature 35.9 C (96.7 F) 02/19/2025 10:08 AM EDT Respiratory Rate 18 05/27/2024 6:46 PM EDT Oxygen Saturation 98% 11/07/2024 11:05 AM EST Inhaled Oxygen Concentration - - Weight 94.3 kg (208 lb) 02/19/2025 10:08 AM EDT Height 165.1 cm (5' 5 ) 02/19/2025 10:08 AM EDT Body Mass Index 34.61 02/19/2025 10:08 AM EDT Plan of Treatment Not on file Procedures Procedure Name Priority Date/Time Associated Diagnosis Comments [id number] Routine 11/07/2024 11:09 AM EST Acute cough POCT URINE TELCOR Routine 09/11/2024 8:45 AM EDT Encounter for initial prescription of injectable contraceptive POCT INFLUENZA A/B Routine 05/27/2024 6: 55 PM EDT Flu-like symptoms POCT SARS-COV-2 RNA SEP Routine 05/27/2024 6:49 PM EDT Flu-like symptoms POCT URINE TELCOR Routine 01/31/2024 9:30 AM EDT Encounter for IUD insertion POCT URINE TELCOR Routine 01/27/2024 1:18 PM EST Negative test .GLUCOSE 2 HR (PREG 2H GTT) Routine 01/25/2024 1:10 PM EST History of gestational diabetes .GLUCOSE 1 HR (PREG 2H GTT) Routine 01/25/2024 12:07 PM EST History of gestational diabetes .GLUCOSE FASTING (PREG 2H GTT) Timed 01/25/2024 11:07 AM EST History of gestational diabetes GLUCOSE TOLERANCE 2 HR(BASE,1HR,2HR) Timed 01/25/2024 11:07 AM EST History of gestational diabetes POC HGB NON INVASIVE Routine 12/07/2023 9:04 AM EST Screening for iron deficiency anemia SPINAL BLOCK Routine 10/20/2023 1:27 AM EST REPEAT SECTION 10/20/2023 1:18 AM EST History of delivery Special Needs 39.5 BB HISTORY CHECK STAT 10/20/2023 1:01 AM EST ANTIBODY SCREEN IGG STAT 10/20/2023 1 :01 AM EST ABORH STAT 10/20/2023 1:01 AM EST TYPE AND SCREEN STAT 10/20/2023 1:01 AM EST COMPREHENSIVE METABOLIC PANEL STAT 10/20/2023 1:01 AM EST SYPHILIS SCREEN WITH REFLEX RPR QUANT STAT 10/20/2023 1:01 AM EST HIGH RISK HCV ANTIBODY REFLEX STAT 10/20/2023 1:01 AM EST HIV AG/AB STAT 10/20/2023 1:01 AM EST CBC STAT 10/20/2023 1:01 AM EST DRUGS OF ABUSE WITH REFLEX TO CONFIRMATION, URINE STAT 10/20/2023 1:01 AM EST ADMIT Routine 10/20/2023 12:40 AM EST SEP URINALYSIS POC Routine 10/18/2023 9: 28 AM EST Supervision of other normal , antepartum POCT NON STRESS TEST Routine 10/12/2023 4:00 PM EST Supervision of other normal , antepartum Diet controlled gestational diabetes mellitus (GDM) in third trimester SEP URINALYSIS POC Routine 10/12/2023 10:05 AM EST Supervision of other normal , antepartum PN US OB 14+WKS, LOW RISK ANATOMY OR NEW INDICATION SINGLE GEST Routine 10/05/2023 12:51 PM EST Diet controlled gestational diabetes mellitus (GDM) in third trimester Low weight gain during in third trimester CHLAMYDIA/GC BY TMA Routine 09/27/2023 2 :21 PM EST Encounter for supervision of other normal in third trimester STREP B DNA Routine 09/27/2023 2:21 PM EST Encounter for supervision of other normal in third trimester CHLAMYDIA/GC Routine 09/27/2023 2:21 PM EST Encounter for supervision of other normal in third trimester SEP URINALYSIS POC Routine 09/27/2023 2: 08 PM EST Encounter for supervision of other normal in third trimester SEP URINALYSIS POC Routine 09/13/2023 9: 08 AM EDT Supervision of other normal , antepartum SEP URINALYSIS POC Routine 08/31/2023 8: 09 AM EDT Encounter for supervision of other normal in third trimester SEP URINALYSIS POC Routine 08/20/2023 4: 21 PM EDT Encounter for supervision of other normal in third trimester .GLUCOSE 3 HR (PREG 3H JAVI) Routine 08/05/2023 12:26 PM EDT Abnormal O'Hayes glucose challenge test, antepartum .GLUCOSE 2 HR (PREG 3H JAVI) Routine 08/05/2023 11:28 AM EDT Abnormal O'Hayes glucose challenge test, antepartum .GLUCOSE 1 HR (PREG JAVI) Routine 08/05/2023 10:28 AM EDT Abnormal O'Hayes glucose challenge test, antepartum .GLUCOSE FASTING (PREG 3H JAVI) Timed 08/05/2023 9:23 AM EDT Abnormal O'Hayes glucose challenge test, antepartum GLUCOSE TOLERANCE 3 HOUR Timed 08/05/2023 9:23 AM EDT Abnormal O'Hayes glucose challenge test, antepartum CBC WITH DIFF Routine 08/03/2023 9:29 AM EDT Encounter for supervision of other normal in second trimester PREG GLUCOSE SCREEN Routine 08/03/2023 9 :29 AM EDT Encounter for supervision of other normal in second trimester SEP URINALYSIS POC Routine 08/03/2023 8: 09 AM EDT Encounter for supervision of other normal in third trimester URINE CULTURE (NO STAIN) Routine 07/09/2023 11:35 AM EDT Encounter for supervision of other normal in second trimester Hematuria, unspecified type SEP URINALYSIS POC Routine 07/09/2023 11:32 AM EDT Encounter for supervision of other normal in second trimester PN US OB DETAIL ANATOMY SINGLE OR FIRST GESTATION Routine 06/23/2023 12:30 PM EDT Supervision of other normal , antepartum SEP URINALYSIS POC Routine 05/28/2023 10:23 AM EDT Supervision of other normal , antepartum BB HISTORY CHECK Routine 04/30/2023 3:34 PM EDT First trimester screening ABORH Routine 04/30/2023 3:34 PM EDT First trimester screening ANTIBODY SCREEN IGG Routine 04/30/2023 3 :34 PM EDT First trimester screening CBC WITH DIFF Routine 04/30/2023 3:34 PM EDT First trimester screening RUBELLA ANTIBODY IGG Routine 04/30/2023 3:34 PM EDT First trimester screening SYPHILIS SCREEN WITH REFLEX RPR QUANT Routine 04/30/2023 3:34 PM EDT First trimester screening HEPATITIS B SURFACE ANTIGEN Routine 04/30/2023 3:34 PM EDT First trimester screening HIV AG/AB Routine 04/30/2023 3:34 PM EDT First trimester screening HCV ANTIBODY SCREEN W/ REFLEX Routine 04/30/2023 3:34 PM EDT First trimester screening CLIENT SERVICE MANAGER CYTOLOGY REQUEST (PAP ONLY) Routine 04/27/2023 3:39 PM EDT Supervision of other normal , antepartum [facility] CLIENT SERVICE MANAGER CYTOLOGY ORDER Routine 04/27/2023 3:39 PM EDT Supervision of other normal , antepartum TRICHOMONAS VAGINALIS BY TMA (PAP PANEL) Routine 04/27/2023 3:39 PM EDT Supervision of other normal , antepartum GC CHLAMYDIA THIN PREP Routine 04/27/2023 3:39 PM EDT Supervision of other normal , antepartum DRUGS OF ABUSE WITH REFLEX TO CONFIRMATION, URINE Routine 04/27/2023 2:56 PM EDT First trimester screening URINE CULTURE (NO STAIN) Routine 04/27/2023 2:56 PM EDT First trimester screening SEP URINALYSIS POC Routine 04/27/2023 2: 53 PM EDT Supervision of other normal , antepartum PN US OB < 14 WEEKS SINGLE OR FIRST GESTATION Routine 04/20/2023 11:36 AM EDT Uterine size date discrepancy , first trimester POCT URINE Routine 04/14/2023 11:30 AM EDT First trimester screening POCT KISHAN FLU+SARS ANTIGEN Routine 11/02/2022 11:09 AM EST Person under investigation for COVID-19 XR LUMBAR SPINE AP AND LATERAL Routine 07/21/2022 11:31 AM EDT Acute midline low back pain with left-sided sciatica VITAMIN B12/ FOLIC ACID Routine 01/30/2022 11:29 AM EST Tired VITAMIN D 25 HYDROXY Routine 01/30/2022 11:29 AM EST Tired LIPID SCREEN Routine 01/30/2022 11:29 AM EST Well adult exam T4, FREE (THYROXINE) Routine 01/30/2022 11:29 AM EST Tired THYROID STIMULATING HORMONE Routine 01/30/2022 11:29 AM EST Well adult exam Tired COMPREHENSIVE METABOLIC PANEL Routine 01/30/2022 11:29 AM EST Well adult exam Tired CBC WITH DIFF Routine 01/30/2022 11:29 AM EST Well adult exam Tired POCT URINE TELCOR Routine 11/10/2021 1:26 PM EST Procedure contraindicated CBC WITH DIFF Timed 08/02/2021 8:59 AM EDT SPINAL BLOCK Routine 08/01/2021 1:57 PM EDT INTRAOP AIRWAY PLACEMENT Routine 08/01/2021 1:49 PM EDT REPEAT SECTION 08/01/2021 1:25 PM EDT History of delivery Special Needs 39.4 BB HISTORY CHECK Routine 08/01/2021 10:39 AM EDT ANTIBODY SCREEN IGG Routine 08/01/2021 10:39 AM EDT ABORH Routine 08/01/2021 10:39 AM EDT TYPE AND SCREEN Routine 08/01/2021 10:39 AM EDT DRUGS OF ABUSE WITH REFLEX TO CONFIRMATION, URINE Routine 08/01/2021 10:39 AM EDT SYPHILIS SCREEN WITH REFLEX RPR QUANT Routine 08/01/2021 10:39 AM EDT CBC WITH DIFF Routine 08/01/2021 10:39 AM EDT HIV AG/AB Routine 08/01/2021 10:39 AM EDT HIGH RISK HCV ANTIBODY REFLEX Routine 08/01/2021 10:39 AM EDT NONSTRESS TEST Routine 08/01/2021 10:37 AM EDT ADMIT Routine 08/01/2021 10:37 AM EDT SEP URINALYSIS POC Routine 07/29/2021 3: 13 PM EDT Encounter for supervision of other normal in third trimester CORONAVIRUS 2019 Routine 07/29/2021 12:37 PM EDT Pre-op testing Encounter for laboratory testing for COVID-19 virus SEP URINALYSIS POC Routine 07/24/2021 2: 20 PM EDT Encounter for supervision of other normal in third trimester SEP URINALYSIS POC Routine 07/15/2021 8: 21 AM EDT Encounter for supervision of other normal in third trimester CHLAMYDIA/GC BY TMA Routine 07/07/2021 1 :41 PM EDT Encounter for supervision of other normal in third trimester CHLAMYDIA/GC Routine 07/07/2021 1:41 PM EDT Encounter for supervision of other normal in third trimester STREP B DNA Routine 07/07/2021 1:41 PM EDT Encounter for supervision of other normal in third trimester SEP URINALYSIS POC Routine 07/07/2021 1: 13 PM EDT Encounter for supervision of other normal in third trimester SEP URINALYSIS POC Routine 07/04/2021 10:40 AM EDT Encounter for supervision of other normal in third trimester SEP URINALYSIS POC Routine 06/20/2021 1: 10 PM EDT SEP URINALYSIS POC Routine 06/13/2021 9: 18 AM EDT Encounter for supervision of other normal in third trimester SEP URINALYSIS POC Routine 05/30/2021 1: 01 PM EDT Encounter for supervision of other normal in second trimester SEP URINALYSIS POC Routine 05/16/2021 1: 07 PM EDT Encounter for supervision of other normal in second trimester .GLUCOSE 3 HR (PREG 3H JAVI) Routine 04/30/2021 12:02 PM EDT Abnormal O'Hayes glucose challenge test, antepartum .GLUCOSE 2 HR (PREG 3H JAVI) Routine 04/30/2021 11:02 AM EDT Abnormal O'Hayes glucose challenge test, antepartum .GLUCOSE 1 HR (PREG JAVI) Routine 04/30/2021 10:02 AM EDT Abnormal O'Hayes glucose challenge test, antepartum .GLUCOSE FASTING (PREG 3H JAVI) Timed 04/30/2021 8:51 AM EDT Abnormal O'Hayes glucose challenge test, antepartum GLUCOSE TOLERANCE 3 HOUR Timed 04/30/2021 8:51 AM EDT Abnormal O'Hayes glucose challenge test, antepartum CBC WITH DIFF Routine 04/17/2021 12:13 PM EDT Encounter for supervision of other normal in second trimester PREG GLUCOSE SCREEN Routine 04/17/2021 12:13 PM EDT Encounter for supervision of other normal in second trimester SEP URINALYSIS POC Routine 04/14/2021 3: 58 PM EDT Encounter for supervision of other normal in second trimester PN US OB FOLLOW UP TRANSABDOMINAL APPROACH EACH GESTATION Routine 03/21/2021 2:37 PM EDT Encounter for supervision of other normal in second trimester Circumvallate placenta, second trimester SEP URINALYSIS POC Routine 03/14/2021 1: 51 PM EDT Encounter for supervision of other normal in second trimester PN US OB 14+WKS, LOW RISK ANATOMY OR NEW INDICATION SINGLE GEST Routine 02/14/2021 2:07 PM EDT Uterine size date discrepancy SEP URINALYSIS POC Routine 02/14/2021 10:48 AM EDT Encounter for supervision of other normal in second trimester BB HISTORY CHECK Routine 01/20/2021 2:29 PM EST First trimester screening ANTIBODY SCREEN IGG Routine 01/20/2021 2 :29 PM EST First trimester screening ABORH Routine 01/20/2021 2:29 PM EST First trimester screening HEMOGLOBIN A1C Routine 01/20/2021 2:29 PM EST BMI 32.0-32.9,adult HIV AG/AB Routine 01/20/2021 2:29 PM EST First trimester screening HEPATITIS B SURFACE ANTIGEN Routine 01/20/2021 2:29 PM EST First trimester screening SYPHILIS SCREEN WITH REFLEX RPR QUANT Routine 01/20/2021 2:29 PM EST First trimester screening RUBELLA ANTIBODY IGG Routine 01/20/2021 2:29 PM EST First trimester screening CBC WITH DIFF Routine 01/20/2021 2:29 PM EST First trimester screening HEPATITIS C ANTIBODY IGM + IGG Routine 01/20/2021 2:29 PM EST First trimester screening CHLAMYDIA/GC BY TMA Routine 01/15/2021 11:57 AM EST Encounter for supervision of other normal in second trimester Vaginal discharge MOLECULAR VAGINITIS PANEL (MVP) Routine 01/15/2021 11:57 AM EST Encounter for supervision of other normal in second trimester Vaginal discharge CHLAMYDIA/GC Routine 01/15/2021 11:57 AM EST Encounter for supervision of other normal in second trimester Vaginal discharge DRUGS OF ABUSE WITH REFLEX TO CONFIRMATION, URINE Routine 01/15/2021 11:36 AM EST First trimester screening URINE CULTURE (NO STAIN) Routine 01/15/2021 11:36 AM EST First trimester screening Encounter for supervision of other normal in second trimester SEP URINALYSIS POC Routine 01/15/2021 11:32 AM EST Encounter for supervision of other normal in second trimester First trimester screening URINALYSIS STAT 09/24/2019 12:39 AM EDT EXTRA FORRESTER URINE CX STAT 09/24/2019 12:39 AM EDT XR ACUTE ABDOMEN SUPINE ERECT AND OR DECUBITUS W 2 VW CHEST JACE 09/24/2019 12:36 AM EDT US RIGHT UPPER QUADRANT Routine 09/19/2019 8:43 AM EDT Right sided abdominal pain OVA AND PARASITE BASIC Routine 09/15/2019 2:10 PM EDT Chronic diarrhea SHIGA TOXIN Routine 09/15/2019 2:10 PM EDT Chronic diarrhea STOOL CULTURE (NO STAIN) Routine 09/15/2019 2:10 PM EDT Chronic diarrhea URINE CULTURE (NO STAIN) Routine 09/14/2019 2:58 PM EDT Pyuria POCT URINALYSIS DIPSTICK Routine 09/14/2019 2:08 PM EDT Right sided abdominal pain XR SHOULDER LEFT 3 VIEWS Routine 07/06/2019 1:58 PM EDT Chronic left shoulder pain VITAMIN B12/ FOLIC ACID Routine 04/06/2019 9:37 AM EDT Well adult exam VITAMIN D 25 HYDROXY Routine 04/06/2019 9:37 AM EDT Well adult exam THYROID STIMULATING HORMONE Routine 04/06/2019 9:37 AM EDT Well adult exam LIPID SCREEN Routine 04/06/2019 9:37 AM EDT Well adult exam COMPREHENSIVE METABOLIC PANEL Routine 04/06/2019 9:37 AM EDT Well adult exam CBC WITH DIFF Routine 04/06/2019 9:37 AM EDT Well adult exam CLIENT SERVICE MANAGER CYTOLOGY REQUEST (PAP ONLY) Routine 02/21/2019 12:00 PM EDT Encounter for screening for malignant neoplasm of cervix CBC WITH DIFF Routine 12/25/2018 7:14 AM EST INTRAOP AIRWAY PLACEMENT Routine 12/24/2018 12:35 AM EST PRIMARY SECTION 12/24/2018 12:17 AM EST Failure to progress in labor ANE EPIDURAL BLOCK Routine 12/23/2018 2: 23 PM EST DRUGS OF ABUSE WITH REFLEX TO CONFIRMATION, URINE Routine 12/23/2018 9:00 AM EST BB HISTORY CHECK STAT 12/23/2018 8:58 AM EST ANTIBODY SCREEN IGG STAT 12/23/2018 8 :58 AM EST ABORH STAT 12/23/2018 8:58 AM EST TYPE AND SCREEN STAT 12/23/2018 8:58 AM EST SYPHILIS SCREEN WITH REFLEX RPR QUANT STAT 12/23/2018 8:58 AM EST HIGH RISK HCV ANTIBODY REFLEX STAT 12/23/2018 8:58 AM EST HIV AG/AB STAT 12/23/2018 8:58 AM EST CBC STAT 12/23/2018 8:58 AM EST POCT URINALYSIS DIPSTICK Routine 12/20/2018 12:54 PM EST Encounter for supervision of other normal in third trimester POCT URINALYSIS DIPSTICK Routine 12/16/2018 1:03 PM EST Encounter for supervision of other normal in third trimester POCT URINALYSIS DIPSTICK Routine 12/07/2018 1:07 PM EST Encounter for supervision of other normal in third trimester POCT URINALYSIS DIPSTICK Routine 12/02/2018 9:25 AM EST Encounter for supervision of other normal in first trimester CHLAMYDIA/GC BY TMA Routine 11/25/2018 4 :58 PM EST Encounter for supervision of other normal in third trimester Screen for STD (sexually transmitted disease) STREP B DNA Routine 11/25/2018 4:58 PM EST Encounter for supervision of other normal in third trimester Screen for STD (sexually transmitted disease) CHLAMYDIA/GC Routine 11/25/2018 4:58 PM EST Encounter for supervision of other normal in third trimester Screen for STD (sexually transmitted disease) POCT URINALYSIS DIPSTICK Routine 11/25/2018 4:38 PM EST Encounter for supervision of other normal in third trimester Screen for STD (sexually transmitted disease) POCT NON STRESS TEST Routine 11/11/2018 2:08 PM EST Decreased movements in third trimester, single or unspecified fetus POCT URINALYSIS DIPSTICK Routine 11/11/2018 1:13 PM EST Encounter for supervision of other normal in third trimester PN US OB FOLLOW UP TRANSABDOMINAL APPROACH EACH GESTATION Routine 11/02/2018 4:02 PM EST Pyelectasis of fetus on ultrasound URINE CULTURE (NO STAIN) Routine 10/26/2018 4:35 PM EST Pyelectasis of fetus on ultrasound Supervision of other normal , antepartum POCT URINALYSIS DIPSTICK Routine 10/26/2018 4:24 PM EST Supervision of other normal , antepartum POCT URINALYSIS DIPSTICK Routine 10/12/2018 1:11 PM EST Encounter for supervision of other normal in third trimester CBC WITH DIFF Routine 09/17/2018 11:23 AM EDT Encounter for supervision of other normal in second trimester PREG GLUCOSE SCREEN Routine 09/17/2018 11:23 AM EDT Encounter for supervision of other normal in second trimester POCT URINALYSIS DIPSTICK Routine 09/14/2018 1:06 PM EDT Encounter for supervision of other normal in second trimester PN US OB DETAIL ANATOMY SINGLE OR FIRST GESTATION Routine 08/17/2018 3:59 PM EDT Encounter for repeat ultrasound of pyelectasis, antepartum, single or unspecified fetus POCT URINALYSIS DIPSTICK Routine 08/17/2018 1:53 PM EDT Pyelectasis of fetus on ultrasound SCANNED RADIOLOGY REPORT 08/09/2018 1:55 PM EDT POCT US DETAILED ANATOMY Routine 08/04/2018 4:25 PM EDT Encounter for anatomic survey POCT URINALYSIS DIPSTICK Routine 07/20/2018 1:48 PM EDT Encounter for supervision of other normal in second trimester POCT URINALYSIS DIPSTICK Routine 06/22/2018 1:04 PM EDT Encounter for supervision of other normal in second trimester BB HISTORY CHECK Routine 06/03/2018 4:49 PM EDT Encounter for supervision of other normal in first trimester ANTIBODY SCREEN IGG Routine 06/03/2018 4 :49 PM EDT Encounter for supervision of other normal in first trimester ABORH Routine 06/03/2018 4:49 PM EDT Encounter for supervision of other normal in first trimester HIV AG/AB Routine 06/03/2018 4:49 PM EDT Encounter for supervision of other normal in first trimester HEPATITIS B SURFACE ANTIGEN Routine 06/03/2018 4:49 PM EDT Encounter for supervision of other normal in first trimester SYPHILIS SCREEN WITH REFLEX RPR QUANT Routine 06/03/2018 4:49 PM EDT Encounter for supervision of other normal in first trimester RUBELLA ANTIBODY IGG Routine 06/03/2018 4:49 PM EDT Encounter for supervision of other normal in first trimester CBC WITH DIFF Routine 06/03/2018 4:49 PM EDT Encounter for supervision of other normal in first trimester HEPATITIS C ANTIBODY IGM + IGG Routine 06/03/2018 4:49 PM EDT Encounter for supervision of other normal in first trimester SCANNED RADIOLOGY REPORT 05/24/2018 3:33 PM EDT CLIENT SERVICE MANAGER CYTOLOGY REQUEST (PAP ONLY) Routine 05/24/2018 2:13 PM EDT Encounter for supervision of other normal in first trimester [facility] CLIENT SERVICE MANAGER CYTOLOGY ORDER Routine 05/24/2018 2:13 PM EDT Encounter for supervision of other normal in first trimester DRUGS OF ABUSE WITH REFLEX TO CONFIRMATION, URINE Routine 05/24/2018 2:13 PM EDT Encounter for supervision of other normal in first trimester TRICHOMONAS VAGINALIS BY TMA Routine 05/24/2018 2:13 PM EDT Encounter for supervision of other normal in first trimester GC CHLAMYDIA THIN PREP Routine 05/24/2018 2:13 PM EDT Encounter for supervision of other normal in first trimester URINE CULTURE (NO STAIN) Routine 05/24/2018 2:13 PM EDT Encounter for supervision of other normal in first trimester POCT URINALYSIS DIPSTICK Routine 05/24/2018 1:08 PM EDT Encounter for supervision of other normal in first trimester POCT US < 14 WEEKS ABDOMINAL Routine 05/24/2018 1:06 PM EDT Uterine size date discrepancy, first trimester URINALYSIS STAT 04/19/2018 7:49 PM EDT EXTRA FORRESTER URINE CX STAT 04/19/2018 7 :49 PM EDT HUMAN CHORIONIC GONADOTROPIN QUANTITATIVE STAT 04/19/2018 7:42 PM EDT COMPREHENSIVE METABOLIC PANEL STAT 04/19/2018 7:42 PM EDT CBC WITH DIFF STAT 04/19/2018 7:42 PM EDT EXTRA LAVENDER Routine 04/15/2018 8:27 PM EDT EXTRA TUBES PANEL Routine 04/15/2018 8:2 7 PM EDT HCG QUALITATIVE STAT 04/15/2018 8:27 PM EDT HCG QUALITATIVE Routine 04/08/2018 6:14 PM EDT XR KNEE RIGHT AP LAT INT EXT OBLIQUES AND SUNRISE JACE 03/14/2018 5:32 PM EDT XR CHEST PA AND LATERAL JACE 03/07/2018 8:01 PM EDT HCG QUALITATIVE STAT 03/07/2018 6:47 PM EDT BASIC METABOLIC PANEL STAT 03/07/2018 6:47 PM EDT CBC WITH DIFF STAT 03/07/2018 6:47 PM EDT HCG QUALITATIVE STAT 02/07/2018 1:55 PM EDT COMPREHENSIVE METABOLIC PANEL STAT 02/07/2018 1:55 PM EDT CBC WITH DIFF STAT 02/07/2018 1:55 PM EDT GLUCOSE METER POC Routine 02/07/2018 1:1 0 PM EDT ANTIBODY SCREEN IGG Routine 03/24/2017 10:53 AM EDT Encounter for supervision of normal in first trimester, unspecified Amenorrhea Vaginal bleeding in , first trimester ABORH Routine 03/24/2017 10:53 AM EDT Encounter for supervision of normal in first trimester, unspecified Amenorrhea Vaginal bleeding in , first trimester DIFFERENTIAL Routine 03/24/2017 10:53 AM EDT SYPHILIS SCREEN WITH REFLEX RPR QUANT Routine 03/24/2017 10:53 AM EDT Encounter for supervision of normal in first trimester, unspecified Amenorrhea Vaginal bleeding in , first trimester RUBELLA ANTIBODY IGG Routine 03/24/2017 10:53 AM EDT Encounter for supervision of normal in first trimester, unspecified Amenorrhea Vaginal bleeding in , first trimester HUMAN CHORIONIC GONADOTROPIN QUANTITATIVE Routine 03/24/2017 10:53 AM EDT Encounter for supervision of normal in first trimester, unspecified Vaginal bleeding in , first trimester Amenorrhea HIV AG/AB Routine 03/24/2017 10:53 AM EDT Encounter for supervision of normal in first trimester, unspecified Amenorrhea Vaginal bleeding in , first trimester HEPATITIS C ANTIBODY IGM + IGG Routine 03/24/2017 10:53 AM EDT Encounter for supervision of normal in first trimester, unspecified Amenorrhea Vaginal bleeding in , first trimester HEPATITIS B SURFACE ANTIGEN Routine 03/24/2017 10:53 AM EDT Encounter for supervision of normal in first trimester, unspecified Amenorrhea Vaginal bleeding in , first trimester CBC WITH DIFF Routine 03/24/2017 10:53 AM EDT Encounter for supervision of normal in first trimester, unspecified Amenorrhea Vaginal bleeding in , first trimester DRUGS OF ABUSE WITH REFLEX TO CONFIRMATION, URINE Routine 03/24/2017 10:21 AM EDT Encounter for supervision of normal in first trimester, unspecified Amenorrhea Vaginal bleeding in , first trimester URINE CULTURE (NO STAIN) Routine 03/24/2017 10:21 AM EDT Encounter for supervision of normal in first trimester, unspecified Amenorrhea Vaginal bleeding in , first trimester POCT URINE Routine 03/24/2017 10:20 AM EDT Amenorrhea Encounter for supervision of normal in first trimester, unspecified Vaginal bleeding in , first trimester URINE CULTURE (NO STAIN) STAT 03/15/2017 8:13 PM EDT URINALYSIS STAT 03/15/2017 7:38 PM EDT BORDETELLA PERTUSSIS PCR Routine 02/17/2017 9:59 PM EDT HCG QUALITATIVE STAT 02/17/2017 9:[address] ABDOMEN PELVIS WO ORAL OR IV CONTRAST STAT 07/30/2016 11:51 PM EDT URINALYSIS STAT 07/30/2016 11:40 PM EDT SALINE LOCK IV Routine 07/30/2016 11:10 PM EDT DIFFERENTIAL STAT 07/30/2016 11:05 PM EDT HCG QUALITATIVE STAT 07/30/2016 11:05 PM EDT BASIC METABOLIC PANEL STAT 07/30/2016 11:05 PM EDT CBC WITH DIFF STAT 07/30/2016 11:05 PM EDT HCG QUALITATIVE STAT 07/22/2016 1:55 PM EDT XR SHOULDER RIGHT 4 VIEWS JACE 07/17/2011 6:47 PM EDT Results * (ABNORMAL) [id number] (11/07/2024 11:09 AM EST) CORONAVIRUS [id number] Not Detected Not Detected 11/07/2024 4:11 PM EST [facility] Influenza A DNA Not Detected Not Detected 11/07 4:11 PM EST [facility] Influenza B DNA Not Detected Not Detected 11/07 4:11 PM EST [facility] RSV DNA Detected(A) Not Detected 11/07/2024 4:11 PM EST [facility] Swab BOTH ANTERIOR NARES / Unknown 11/07/2024 11:09 AM EST 11/07/2024 11:09 AM EST Narrative [facility] - 11/07/2024 4:11 PM EST This test is a real-time RT-PCR test intended for the qualitative detection of nucleic acid from the SARS-CoV-2, Influenza A/B, and RSV in upper respiratory samples collected from individuals suspected of COVID-19, Influenza A/B or RSV. Not Detected results do not preclude COVID-19, influenza virus or RSV infection or other respiratory viruses and should not be used as the sole basis for treatment or other patient management decisions. Test is performed on the [employer] GeneXpert platform under the FDA's Emergency Use Authorization (EUA). Cepheid Fact Sheet for Providers and Patients: Cepheid Fact Sheet for Providers: https://www.fda.gov/media/845595/download Cepheid Fact Sheet for Patients: https://www.fda.gov/media/234587/download Adwoa Vicente Colon SPECIAL SERVICE REPRESENTATIVE MICROBIOLOGY - GENERAL OR DERABLES Final Result Performing Organization Address City/[facility]/ZIP Co de Phone Number [facility] [employer] [address] [place] [address] , [facility] [place] [place] [address] * POCT URINE TELCOR (09/11/2024 8:45 AM EDT) Only the most recent of4 resultswithin the time period is included. Preg Test, Ur Negative 09/11/2024 8:52 AM EDT [facility] Urine URINE SPECIMEN COLLECTION / Unknown 09/11/2024 8:45 AM EDT 09/11/2024 8:52 AM EDT Lab Test POINT OF CARE TEST ORDERABLES Fi nal Result Performing Organization Address City/[facility]/ZIP Co de Phone Number [facility] [address] [place] [address] * POCT INFLUENZA A/B (05/27/2024 6:55 PM EDT) Influenza A Ag Negative Positive, Negative, Invalid SEP OFFICE Influenza B Ag Negative Positive, Negative, Invalid SEP OFFICE Lot Number [id number] SEP OFFICE Expiration Date 11/21/2025 SEP OFFICE Flu Blue Control Line (positive internal control) Yes SEP OFFICE Clear Background (negative internal control) Yes Yes/No SEP OFFICE 05/27/2024 6:55 PM EDT Shameka Cruz MD POINT OF CARE TEST ORDERABLES Final Result SEP OFFICE * POCT SARS-COV-2 RNA SEP (05/27/2024 6:49 PM EDT) [facility] COV19 RNA POCT Negative Negative 05/27/2024 7:04 PM EDT [facility] Swab NASAL / Unknown 05/27/2024 6 :49 PM EDT 05/27/2024 7:04 PM EDT Narrative [facility] - 05/27/2024 7:04 PM EDT The ID NOW is an isothermal nucleic acid amplification assay used to detect nucleic acid from SARS-CoV-2 viral RNA and is intended for use under FDA Emergency Use Authorization only. Negative results do not preclude SARS-CoV-2 infection and should not be used as the sole basis for patient management decisions. Negative results must be combined with clinical observations, patient history, and epidemiological information. Recommend confirmation using alternate method if a negative result is inconsistent with clinical signs and symptoms or if necessary for patient management. [facility] ID NOW Provider Fact Sheet: https://www.fda.gov/media/720659/download [facility] ID NOW Patient Fact Sheet: https://www.fda.gov/media/032445/download Shameka Cruz MD POINT OF CARE TEST ORDERABLES Final Result Performing Organization Address [facility] Co de Phone Number [facility] [address] [place] [address] * .GLUCOSE 2 HR (PREG 2H GTT) (01/25/2024 1:10 PM EST) Pathologist [facility] Gluc 2 Hr (Preg 2H GTT) 85 <153 (IADPSG/AD A) mg/dL 01/25/2024 8:16 PM EST PREFERRED LAB [employer], [facility] Blood VENOUS BLOOD / Unknown Venipuncture / Unknown 01/25/2024 1:10 PM EST 01/25/2024 1:10 PM EST Kayla M Gallito DO CHEMISTRY ORDERABLES Fi nal Result Performing Organization Address [facility] de Phone Number [facility] [address] , [place] [address] * .GLUCOSE 1 HR (PREG 2H GTT) (01/25/2024 12:07 PM EST) Pathologist [facility] Gluc 1 Hr (Preg 2H GTT) 88 <180 (IADPSG/AD A) mg/dL 01/25/2024 9:13 PM EST PREFERRED LAB [employer] Blood VENOUS BLOOD / Unknown Venipuncture / Unknown 01/25/2024 12:07 PM EST 01/25/2024 12:07 PM EST Kayla Conti DO CHEMISTRY ORDERABLES Fi nal Result Performing Organization Address [facility] Phone Number [employer] [address] , [place] [address] * .GLUCOSE FASTING (PREG 2H GTT) (01/25/2024 11:07 AM EST) Pathologist [facility] Gluc Fasting (Preg 2H GTT) 90 <92 (IADPSG/AD A) mg/dL 01/25/2024 3:16 PM EST [facility] Blood VENOUS BLOOD / Unknown Venipuncture / Unknown 01/25/2024 11:07 AM EST 01/25/2024 11:07 AM EST Kayla Conti DO CHEMISTRY ORDERABLES Fi nal Result Performing Organization Address [facility] Co de Phone Number [facility] 1 [facility] , [place] [address] * POC HGB NON INVASIVE (12/07/2023 9:04 AM EST) Pathologist [facility] HGB NK 13.6 11 - 15 [facility] Blood 12/07/2023 9:04 AM EST Bebeto Covington MD POINT OF CARE TEST ORDERA BLES Final Result Performing Organization Address [facility]/ZIP Co de Phone Number [id number] * Spinal Block by Anesthesia (10/20/2023 1:27 AM EST) Narrative [facility] - 10/20/2023 1:27 AM EST Roosevelt Fonseca CRNA 10/20/2023 1:30 AM Spinal Block by Anesthesia Procedure Date/Time: 10/20/2023 1:27 AM COMMUNITY HEALTH NURSING DIRECTOR: Roosevelt Fonseca CRNA Performed by: COMMUNITY HEALTH NURSING DIRECTOR Patient Location: OB Reason for Block: Primary anesthetic and labor Checklist: Patient identified- 2 criteria, Block site marked, Allergies confirmed, LEESA recommended monitors applied, Block equipment and meds available, Anticoagulant confirmed, IV access functioning, Preprocedure evaluation verified, Procedure consent verified, Timeout performed and Supplemental O2 applied, if needed Neuraxial Block Immediate pre anesthetic assessment completed? Yes Patient Position: Sitting Prep: ChloraPrep Sterile drape: Yes Monitoring: Blood pressure monitoring, continuous pulse oximetry and heart rate monitoring Sedation level: no sedation Local Anesthetic: Lidocaine 1% 2 ml, intradermal Approach: Midline Location: L3-4 Injection Technique: Single-shot Site localization: anatomical landmark Needle and procedure/medications Needle Type: Pencan Needle Gauge: 24 G Needle Length: 4 in Number of Attempts: 1 Medication(s) Administered: morphine (DURAMORPH) 0.5 mg/mL (PF) - Intrathecal 150 mcg - 10/20/2023 1:23:00 AM fentaNYL (SUBLIMAZE) injection - Intrathecal 15 mcg - 10/20/2023 1:23:00 AM bupivacaine 0.75%-dextrose 8.25% (SENSORCAINE) intrathecal injection - Intrathecal 1.6 mL - 10/20/2023 1:23:00 AM Assessment Neuraxial Block: free flowing CSF and clear CSF Events: no complications noted us Melvin Henry MD ANESTHESIA ORDERABLES Edited Re sult - Final Performing Organization Address [facility] Co de Phone Number [facility] [address] [place] [phone] * HIV AG/AB (10/20/2023 1:01 AM EST) Only the most recent of7 resultswithin the time period is included. HIV Ag/AB Non-Reactiv e Non-Reacti ve 10/20/2023 7:06 AM EST [facility] Blood VENOUS BLOOD / Unknown Venipuncture / Unknown 10/20/2023 1:01 AM EST 10/20/2023 1:06 AM EST us Carmenza Gerber MD IMMUNOLOGY ORDERABLES Final Res ult [facility] 1 [facility] , [place] [address] * BB HISTORY CHECK (10/20/2023 1:01 AM EST) Only the most recent of6 resultswithin the time period is included. BB HISTORY CHECK (1) Previous History OK 10/20/2023 1:07 AM EST [facility] Blood VENOUS BLOOD / Unknown Venipuncture / Unknown 10/20/2023 1:01 AM EST 10/20/2023 1:06 AM EST us Carmenza Gerber MD BLOOD BANK ORDERABLES Final Res ult Performing Organization Address [facility] Co de Phone Number [facility] [address] [place] [address] * SYPHILIS SCREEN WITH REFLEX RPR QUANT (10/20/2023 1:01 AM EST) Only the most recent of7 resultswithin the time period is included. Trep Ab Index 0.05 <=0.99 Index Value 10/20/2023 7:05 AM EST [facility] Comment: < 1.00 - Non-Reactive >=1.00 - Reactive NOTE: All reactive results will be reflexed to Quantitative Non-Treponemal(RPR)test. Blood VENOUS BLOOD / Unknown Venipuncture / Unknown 10/20/2023 1:01 AM EST 10/20/2023 1:06 AM EST us Carmenza Gerber MD CHEMISTRY ORDERABLES Final Resu lt [facility] 1 [facility] , [address] [place], [place] [id number] * (ABNORMAL) CBC (10/20/2023 1:01 AM EST) Only the most recent of2 resultswithin the time period is included. WBC 14.4(H) 3.7 - 10.3 x10(3)/mcL 10/20/2023 1:12 AM EST [facility] RBC 4.51 3.90 - 5.20 x10(6)/mcL 10/20/2023 1:12 AM EST [facility] Hgb 13.5 11.2 - 15.7 g/dL 10/20/2023 1:12 AM EST [facility] Hct 39.6 34.0 - 45.0 % 10/20/2023 1:12 AM EST [facility] MCV 87.8 80.0 - 100.0 fL 10/20/2023 1:12 AM EST [facility] MCH 29.9 26.0 - 34.0 pg 10/20/2023 1:12 AM EST [facility] MCHC 34.1 30.7 - 35.5 g/dL 10/20/2023 1:12 AM EST [facility] RDW 13.2 <=14.9 % 10/20/2023 1:12 AM EST [facility] Platelet 199 155 - 369 x10(3)/mcL 10/20/2023 1:12 AM EST [facility] MPV 11.6 8.8 - 12.5 fL 10/20/2023 1:12 AM EST [facility] Blood VENOUS BLOOD / Unknown Venipuncture / Unknown 10/20/2023 1:01 AM EST 10/20/2023 1:06 AM EST us Carmenza Gerber MD HEMATOLOGY ORDERABLES Final Res ult [facility] 1 [facility] , [place] [address] * HIGH RISK HCV ANTIBODY REFLEX (10/20/2023 1:01 AM EST) Only the most recent of3 resultswithin the time period is included. Hep C Ab Non-Reactiv e Non-Reacti ve 10/20/2023 7:05 AM EST [facility] Blood VENOUS BLOOD / Unknown Venipuncture / Unknown 10/20/2023 1:01 AM EST 10/20/2023 1:06 AM EST us Carmenza Gerber MD IMMUNOLOGY ORDERABLES Final Res ult [facility] 1 [facility] , [place] [address] * DRUGS OF ABUSE WITH REFLEX TO CONFIRMATION, URINE (10/20/2023 1:01 AM EST) Only the most recent of7 resultswithin the time period is included. 6 AM (Heroin) Absent Cutoff 10 ng/mL 10/20/2023 1:59 AM EST [facility] Amphetamines Absent Cutoff 500 ng/mL 10/20/2023 1:59 AM EST [facility] Barbiturates Absent Cutoff 200 ng/mL 10/20/2023 1:59 AM EST [facility] Benzodiazepines Absent Cutoff 200 ng/mL 10/20/2023 1:59 AM EST [facility] Buprenorphine Absent Cutoff 5 ng/mL 10/20/2023 1:59 AM EST [facility] Cannabinoid Metabolite Absent Cutoff 50 ng/mL 10/20/2023 1:59 AM EST [facility] Cocaine Metabolite Absent Cutoff 150 ng/mL 10/20/2023 1:59 AM EST [facility] Fentanyl Absent Cutoff 2 ng/mL 10/20/2023 1:59 AM EST [facility] Methadone and Metabolite Absent Cutoff 300 ng/mL 10/20/2023 1:59 AM EST [facility] Opiate Absent Cutoff 300 ng/mL 10/20/2023 1:59 AM EST [facility] Oxycodone Lvl Absent Cutoff 100 ng/mL 10/20/2023 1:59 AM EST [facility] Urine Creatinine 39.5 mg/dL 10/20/20 1:59 AM EST [facility] Comment: Greater than 20: Consistent with valid sample Greater than 2 but less than 20: Possible dilution Less than 2: Questionable valid sample Urine URINE SPECIMEN COLLECTION / Unknown 10/20/2023 1:01 AM EST 10/20/2023 1:20 AM EST Narrative [facility] - 10/20/2023 1:59 AM EST These drug classes have been qualitatively screened by immunoassay and are for medical purposes only. Results should not be used for non-medical purposes. Results reported as presumptive positive will be sent for confirmation. Due to possible factors, such as, dilute/adulterated urine, concentration of drug/metabolite being below the cut-off, or antibody specificity of test reagent, a negative result does not rule out drug use. These results are only valid for urine specimens. Any contamination with vaginal pool/amniotic fluid could cause erroneous results. us Carmenza Gerber MD URINE ORDERABLES Final Result Performing Organization Address [facility]/ZIP Co de Phone Number [facility] [employer] [facility] 1 [facility], [place] [address] * ABORH (10/20/2023 1:01 AM EST) Only the most recent of7 resultswithin the time period is included. ABORH Int B POS 10/20/2023 1:5 0 AM EST [facility] BLOOD [facility] Blood VENOUS BLOOD / Unknown Venipuncture / Unknown 10/20/2023 1:01 AM EST 10/20/2023 1:06 AM EST us Carmenza Gerber MD BLOOD BANK ORDERABLES Final Res ult Performing Organization Address City/[facility]/ZIP Co de Phone Number [facility] [address] [place] [id number] * ANTIBODY SCREEN IGG (10/20/2023 1:01 AM EST) Only the most recent of7 resultswithin the time period is included. ABSC IgG Int Negative 10/20/2023 1:50 AM EST [facility] Blood VENOUS BLOOD / Unknown Venipuncture / Unknown 10/20/2023 1:01 AM EST 10/20/2023 1:06 AM EST us Carmenza Gerber MD BLOOD BANK ORDERABLES Final Res ult [facility] [address] [place] [phone] * (ABNORMAL) COMPREHENSIVE METABOLIC PANEL (10/20/2023 1:01 AM EST) Only the most recent of5 resultswithin the time period is included. Sodium 136 136 - 145 mmol/L 10/20/2023 2:21 AM EST [facility] Potassium 3.8 3.5 - 5.0 mmol/L 10/20/2023 2:21 AM EST [facility] Chloride 103 98 - 107 mmol/L 10/20/2023 2:21 AM EST [facility] Total CO2 19(L) 22 - 29 mmol/L 10/20/2023 2:21 AM EST [facility] Anion Gap 14 7 - 16 mmol/L 10/20/2023 2:21 AM EST [facility] Calcium 9.5 8.6 - 10.4 mg/dL 10/20/2023 2:21 AM EST [facility] Glucose Lvl 73(L) 74 - 100 mg/dL 10/20/2023 2:21 AM EST [facility] BUN 4(L) 6 - 20 mg/dL 10/20/2023 2:21 AM EST [facility] Creatinine 0.41(L) 0.51 - 1.30 mg/dL 10/20/2023 2:21 AM EST [facility] Albumin 3.9 3.5 - 5.2 gm/dL 10/20/2023 2:21 AM EST [facility] Total Protein 7.0 6.4 - 8.3 gm/dL 10/20/2023 2:21 AM EST [facility] Bili Total 0.4 0.2 - 1.3 mg/dL 10/20/2023 2:21 AM EST [facility] ALT 12 <=41 U/L 10/20/2023 2:21 AM EST [facility] AST 18 <=40 U/L 10/20/2023 2:21 AM EST [facility] [employer], [facility] Alk Phos 284(H) 36 - 123 U/L 10/20/2023 2:21 AM EST [facility] LAB [facility], [facility] eGFR (CKD-EPIcr 2020) 137 >=60 mL/min/1.7 3 m2 10/20/2023 2:21 AM EST [facility] Comment:Estimated GFR was ca lculated using the CKD-EPIcr (2020) equation refit without race. The equation is recommended by the National Kidney Foundation - [place] Society of Nephrology Task Force. Blood VENOUS BLOOD / Unknown Venipuncture / Unknown 10/20/2023 1:01 AM EST 10/20/2023 1:06 AM EST us Carmenza Gerber MD CHEMISTRY ORDERABLES Final Resu lt [facility] [employer], [facility] 1 [facility] , [address] [place] [phone] [facility] [address] [place] [address] * SEP URINALYSIS POC (10/18/2023 9:28 AM EST) Only the most recent of23 resultswithin the time period is included. UA Color POC Yellow Color 10/18/2023 9:30 AM EST [facility] CRIT UA Appear POC Clear Clear 10/18/2023 9:30 AM EST [facility] UA Gluc POC Negative Negative mg/dL 10/18/2023 9:30 AM EST [facility] UA Bili POC Negative Negative 10/18/2023 9:30 AM EST [facility] UA Ketones POC Negative Negative mg/dL 10/18/2023 9:30 AM EST [facility] CRIT UA SG POC 1.010 1.001 - 1.035 no units 10/18/2023 9:30 AM EST [facility] UA Blood POC Negative Negative 10/18/2023 9:30 AM EST [facility] UA pH POC 6.0 5.0 - 8.0 pH 10/18/2023 9:30 AM EST [facility] UA Protein POC Negative Negative mg/dL 10/18/2023 9:30 AM EST [facility] UA Urobilinogen POC 0.2 0.2, 1.0 10/18/2023 9:30 AM EST [facility] UA Nitrite POC Negative Negative 10/18/2023 9:[address] [facility] Leuk Est POC Negative Negative 9:[address] [facility] Urine URINE SPECIMEN COLLECTION / Unknown 10/18/2023 9:28 AM EST 10/18/2023 9:30 AM EST us Amarilis Gill DO POINT OF CARE TEST ORDER ANILA Final Result Performing Organization Address [facility] Co de Phone Number [facility] [address] [place] [address] * POCT NON STRESS TEST (10/12/2023 4:00 PM EST) Only the most recent of2 resultswithin the time period is included. 10/12/2023 4:00 PM EST Impressions [facility] - 10/12/2023 4:20 PM EST NST reactive and reassuring Baseline: 125 bpm Accels: Present Decels: Absent Moderate variability [place]: no ctx's or irritability noted us Jenni Scanlon SPECIAL SERVICE REPRESENTATIVE POINT OF CARE TEST ORD ERABLES Final Result [facility] * PN US OB 14+WKS, LOW RISK ANATOMY OR NEW INDICATION SINGLE GEST (10/05/2023 12:51 PM EST) Only the most recent of2 resultswithin the time period is included. Anatomical Region Laterality Modality Pelvis Ultrasound 10/05/2023 11:5 9 AM EST us Kayla Conti DO IMG ORDERABLE S Final Result * STREP B DNA (09/27/2023 2:21 PM EST) Only the most recent of3 resultswithin the time period is included. Strep B DNA Not Detected Not Detected 11:40 AM EST [facility] [employer] [facility] Swab RECTUM AND VAGINA, CS / Unknown 09/27/2023 2:21 PM EST 09/27/2023 2:21 PM EST Narrative [facility] [employer], [facility] - 09/29/2023 11:40 AM EST TEST INFORMATION: This qualitative assay utilizes molecular amplification to detect a portion of the Streptococcus agalactiae genome and is intended for a screen of antepartum women in 35-37 weeks gestation. A negative result does not rule out the presence the Group B Strep in concentrations below the limit of detection for the assay. Yolie Rasmussen MD MICROBIOLOGY - [facility] ORDERABLES Final Result [facility] [employer], [facility] 1 [facility], [place] [address] * CHLAMYDIA/GC BY TMA (09/27/2023 2:21 PM EST) Only the most recent of4 resultswithin the time period is included. Pathologist [facility] Chlamydia trachomatis Not Detected Not Detected 09/28/2023 4:02 AM EST [facility] [employer] [facility] Neisseria gonorrhoeae Not Detected Not Detected 09/28/2023 4:02 AM EST [facility] [employer] [facility] Swab SPECIMEN FROM UTERINE CERVIX / Unknown 09/27/2023 2:21 PM EST 09/27/2023 2:21 PM EST Narrative [facility] [employer], [facility] - 09/28/2023 4:02 AM EST Testing methodology is doctor of osteopathy mediated amplification (TMA) using the Aptima Combo 2 assay from [employer]. A negative result does not completely rule out a Chlamydia trachomatis or Neisseria gonorrhoeae infection due to potential inhibitors or levels present below the limit of detection by this assay. Results are dependent on proper collection and transport of specimen. This test is indicated for medical purposes only and should not be used for legal or forensic purposes. The performance characteristics of this assay were validated by the testing laboratory. This assay is FDA cleared to test the following specimens: clinician-collected endocervical, vaginal, male urethral swab specimens, rectal swabs, and throat/pharyngeal swabs; patient collected vaginal specimens within a clinic setting; Thin Prep Specimens in [employer]erv[employer]yt Solution; and first-stream, unpreserved male and female urine specimens. Detailed methodology is available upon request. Yolie Rasmussen MD MICROBIOLOGY - [facility] AL ORDERABLES Final Result Performing Organization Address City/[facility]/ZIP Co de Phone Number [facility] [employer] [address], [facility] [place] [address] * .GLUCOSE 3 HR (PREG 3H JAVI) (08/05/2023 12:26 PM EDT) Only the most recent of2 resultswithin the time period is included. Gluc 3 Hr (Preg 3H GTT) 139 <140 mg/dL 08/05/2023 12:49 PM EDT [facility] Blood VENOUS BLOOD / Unknown Venipuncture / Unknown 08/05/2023 12:26 PM EDT 08/05/2023 12:26 PM EDT Narrative [facility] - 08/05/2023 12:49 PM EDT The Pearson and Coustan conversion is used to establish PLP reference intervals. Other criteria, including intervals established by the National Diabetes Data Group (NDDG), may be used as an alternative. Amarilis Gill DO CHEMISTRY ORDERABLES Fin al Result Performing Organization Address City/[facility] Co de Phone Number [facility] [address] [place] [address] * .GLUCOSE 2 HR (PREG 3H JAVI) (08/05/2023 11:28 AM EDT) Only the most recent of2 resultswithin the time period is included. Gluc 2 Hr (Preg 3H GTT) 140 <155 mg/dL 08/05/2023 12:00 PM EDT [facility] Blood VENOUS BLOOD / Unknown Venipuncture / Unknown 08/05/2023 11:28 AM EDT 08/05/2023 11:28 AM EDT Narrative [facility] - 08/05/2023 12:00 PM EDT The Pearson and Coustan conversion is used to establish PLP reference intervals. Other criteria, including intervals established by the National Diabetes Data Group (NDDG), may be used as an alternative. [facility] CHEMISTRY ORDERABLES Fin al Result Performing Organization Address [facility] Phone Number [facility] [address] [place] [address] * (ABNORMAL) .GLUCOSE 1 HR (PREG JAVI) (08/05/2023 10:28 AM EDT) Only the most recent of2 resultswithin the time period is included. Gluc 1 Hr (Preg 3H GTT) 211(H) <180 mg/dL 08/05/2023 11:02 AM EDT [facility] Blood VENOUS BLOOD / Unknown Venipuncture / Unknown 08/05/2023 10:28 AM EDT 08/05/2023 10:28 AM EDT Narrative [facility] - 08/05/2023 11:02 AM EDT The Pearson and Coustan conversion is used to establish PLP reference intervals. Other criteria, including intervals established by the National Diabetes Data Group (NDDG), may be used as an alternative. Amarilis [facility]am[facility]ado [facility] CHEMISTRY ORDERABLES Fin al Result Performing Organization Address [facility] de Phone Number [facility] [address] [place] [address] * (ABNORMAL) .GLUCOSE FASTING (PREG 3H JAVI) (08/05/2023 9:23 AM EDT) Only the most recent of2 resultswithin the time period is included. Gluc Base (Preg 3H Javi) 102(H) <95 mg/dL 08/05/2023 10:41 AM EDT [facility] Blood VENOUS BLOOD / Unknown Venipuncture / Unknown 08/05/2023 9:23 AM EDT 08/05/2023 9:23 AM EDT Narrative [facility] - 08/05/2023 10:41 AM EDT The Pearson and Coustan conversion is used to establish PLP reference intervals. Other criteria, including intervals established by the National Diabetes Data Group (NDDG), may be used as an alternative. Amarilis Gill DO CHEMISTRY ORDERABLES Fin al Result Performing Organization Address [facility] Co de Phone Number [facility] [address] [place] [address] * (ABNORMAL) PREG GLUCOSE SCREEN (08/03/2023 9:29 AM EDT) Only the most recent of3 resultswithin the time period is included. Preg Screen 192(H) <130 mg/dL 08/03/2023 2:46 PM EDT [facility] Blood VENOUS BLOOD / Unknown Venipuncture / Unknown 08/03/2023 9:29 AM EDT 08/03/2023 9:29 AM EDT Narrative [facility] - 08/03/2023 2:46 PM EDT Choice of screening threshold may vary from 130 mg/dL to 140 mg/dL. ACOG recommends 3 Hr diagnostic oral glucose tolerance test following positive screen. Amarilis Gill DO CHEMISTRY ORDERABLES Fin al Result Performing Organization Address [facility] Co de Phone Number [facility] [address] [place] [address] , [place] [address] * (ABNORMAL) CBC WITH DIFF (08/03/2023 9:29 AM EDT) Only the most recent of16 resultswithin the time period is included. WBC 10.3 3.7 - 10.3 x10(3)/mcL 08/03/2023 2:03 PM EDT [facility] RBC 3.85(L) 3.90 - 5.20 x10(6)/mcL 08/03/2023 2:03 PM EDT [facility] Hgb 11.4 11.2 - 15.7 g/dL 08/03/2023 2:03 PM EDT [facility] Hct 34.6 34.0 - 45.0 % 08/03/2023 2:03 PM EDT [facility] MCV 89.9 80.0 - 100.0 fL 08/03/2023 2:03 PM EDT [facility] MCH 29.6 26.0 - 34.0 pg 08/03/2023 2:03 PM EDT [facility] MCHC 32.9 30.7 - 35.5 g/dL 08/03/2023 2:03 PM EDT [facility] RDW 13.3 <=14.9 % 08/03/2023 2:03 PM EDT [facility] Platelet 243 155 - 369 x10(3)/mcL 08/03/2023 2:03 PM EDT [facility] MPV 11.3 8.8 - 12.5 fL 08/03/2023 2:03 PM EDT [facility] Neut Percent 75.1 % 08/03/2023 2:03 PM EDT [facility] Comment:Neutrophils equals s egs plus bands Imm Gran% 0.5 % 08/03/2023 2:03 PM EDT [facility] Comment:Automated count of m etamyelocytes, myelocytes and promyelocytes. Lymph Percent 18.1 % 08/03/2023 2:03 PM EDT [facility] Fergus Percent 4.4 % 08/03/2023 2:03 PM EDT [facility] Eos Percent 1.6 % 08/03/2023 2:03 PM EDT [facility] Baso Percent 0.3 % 08/03/2023 2:03 PM EDT [facility] Neut # 7.7(H) 1.6 - 6.1 x10(3)/mcL 08/03/2023 2:03 PM EDT [facility] Comment:Neutrophils equals s egs plus bands IMMGRAN# 0.1 0.0 - 0.1 x10(3)/mcL 08/03/2023 2:03 PM EDT [facility] Comment:Automated count of m etamyelocytes, myelocytes and promyelocytes. An absolute IG <0.1 is reported as 0.0. Lymph # 1.9 1.2 - 3.9 x10(3)/mcL 08/03/2023 2:03 PM EDT [facility] Fergus # 0.5 0.3 - 0.9 x10(3)/[facility] 08/03/2023 2:03 PM EDT [facility] Eos# 0.2 0.0 - 0.5 x10(3)/[facility] 08/03/2023 2:03 PM EDT [facility] Baso # 0.0 0.0 - 0.1 x10(3)/[facility] 08/03/2023 2:03 PM EDT [facility] Blood VENOUS BLOOD / Unknown Venipuncture / Unknown 08/03/2023 9:29 AM EDT 08/03/2023 9:29 AM EDT us Amarilis Gill DO HEMATOLOGY ORDERABLES Fi nal Result Performing Organization Address City/[facility]/ZIP Co de Phone Number [facility] [employer] , [place] [address] * URINE CULTURE (NO STAIN) (07/09/2023 11:35 AM EDT) Only the most recent of8 resultswithin the time period is included. Culture Multiple bacterial species isolated from urine consistent with urogenital commensal organisms. 07/11/2023 4:36 AM EDT [facility], [facility] Urine URINE SPECIMEN COLLECTION, CLEAN CATCH / Unknown 07/09/2023 11:35 AM EDT 07/09/2023 11:35 AM EDT us Amarilis Gill DO MICROBIOLOGY - GENERAL O RDERABLES Final Result Performing Organization Address City/[facility]/ZIP Co de Phone Number [facility] [employer] , [place] [address] * PN US OB DETAIL ANATOMY SINGLE OR FIRST GESTATION (06/23/2023 12:30 PM EDT) Only the most recent of2 resultswithin the time period is included. Anatomical Region Laterality Modality Pelvis Ultrasound 06/23/2023 11:1 1 AM EDT Isela [facility] CNFei IMG ORDERABLES Fin al Result * HCV ANTIBODY SCREEN W/ REFLEX (04/30/2023 3:34 PM EDT) Hep C Ab Non-Reactiv e Non-Reacti ve 05/01/2023 12:03 AM EDT [facility] Blood VENOUS BLOOD / Unknown Venipuncture / Unknown 04/30/2023 3:34 PM EDT 04/30/2023 3:34 PM EDT Lina Finn APRN HEMATOLOGY ORDERABLES Fin al Result Performing Organization Address [facility] de Phone Number [facility] [address] [place] [address] [place] [address] * RUBELLA ANTIBODY IGG (04/30/2023 3:34 PM EDT) Only the most recent of4 resultswithin the time period is included. Rubella IgG 2.040 Index Value 05/01/2023 6:12 AM EDT [facility] Comment: < 0.90 - Negative No significant level of detectable rubella IgG Antibody (Presumed Non-Immune) 0.90 to 0.99 - Equivocal Repeat testing in 10-14 days is recommended > or = 1.00 - Positive Previous exposure or vaccination (Immune) Note: The magnitude of the measured result is not indicative of the amount of antibody present. Blood VENOUS BLOOD / Unknown Venipuncture / Unknown 04/30/2023 3:34 PM EDT 04/30/2023 3:34 PM EDT Lina Finn APRN IMMUNOLOGY ORDERABLES Fin al Result Performing Organization Address [facility] Co de Phone Number [facility] [address] [place] [address] [place] [address] * HEPATITIS B SURFACE ANTIGEN (04/30/2023 3:34 PM EDT) Only the most recent of4 resultswithin the time period is included. Hep Bs Ag Non-Reactiv e Non-Reacti ve 05/01/2023 12:05 AM EDT [facility] Blood VENOUS BLOOD / Unknown Venipuncture / Unknown 04/30/2023 3:34 PM EDT 04/30/2023 3:34 PM EDT Lina Finn SPECIAL SERVICE REPRESENTATIVE CHEMISTRY ORDERABLES Tatianna loya Result [facility] [address] [facility] , [place] [address] * CLIENT SERVICE MANAGER CYTOLOGY REQUEST (PAP ONLY) (04/27/2023 3:39 PM EDT) Only the most recent of3 resultswithin the time period is included. CASE REPORT Gynecologic Cytology Report Case: [id number] Authorizing Provider: Isela Perez CNM Collected: 04/27/2023 1539 Ordering Location: [facility] Received: 04/27/2023 1539 First Screen: Anika Tolentino CT Specimen: LIQUID-BASED PAP - CERVICAL/ENDOCERV ICAL, Cervix, Endocervical 04/28/2023 1:18 PM EDT [facility] PAP FINAL DIAGNOSIS Negative for intraepithelial lesion or malignancy 04/28/2023 1:18 PM EDT [facility] at 1318 EDT MICROSCOPIC DESCRIPTION Microscopic examination is performed and the findings corroborate the diagnosis. 04/28/2023 1:18 PM EDT [facility] PAP SMEAR ADEQUACY Satisfactory for evaluation 04/28/2023 1:18 PM EDT [facility] ENDOCERVICAL T-ZONE Transformation zone absent. This is not unusual in a woman 04/28/2023 1:18 PM EDT [facility] EMBEDDED IMAGES 1:18 PM EDT [facility] PAP DISCLAIMER The Pap Smear is a screening test that aids in the detection of cervical cancer and cancer precursors. Both false positive and false negative results can occur. The test should be used at regular intervals, and positive results should be confirmed before definitive therapy. Processed using the ThinPrep Waste Examiner Automated cytology screening device ([employer]). 04/28/2023 1:18 PM EDT [facility] PAP OTHER FINDINGS Many acute inflammatory cells noted. 04/28/2023 1:18 PM EDT [facility] Thin Prep ENDOCERVICAL STRUCTURE / Unknown 04/27/2023 3:39 PM EDT 04/27/2023 3:39 PM EDT Isela Perez CNM CYTOLOGY ORDERABLES Final Re sult [place] [id number] * TRICHOMONAS VAGINALIS BY TMA (PAP PANEL) (04/27/2023 3:39 PM EDT) Trichomonas vaginalis by TMA Not Detected Not Detected 04/28/2023 3:05 PM EDT [facility] [employer] SPECIMEN FROM UTERINE CERVIX / Unknown 04/27/2023 3:39 PM EDT 04/27/2023 3:39 PM EDT Narrative [facility] - 04/28/2023 3:05 PM EDT Test methodology is doctor of osteopathy mediated amplification (TMA) using the Aptima Trichomonas vaginalis assay from [employer]. A negative result does not completely rule out a Trichomonas vaginalis infection due to potential inhibitors or levels present below the limit of detection of this assay. Results are dependent on proper collection and transport of specimen. This test is indicated for medical purposes only and should not be used for legal or forensic purposes. The assay has been cleared by the FDA to test the following specimens from symptomatic or asymptomatic women: clinician-collected endocervical swabs, clinician-collected vaginal swabs, and specimens collected in PreservCyt solution. Testing on first-catch male and female urine is not FDA-approved by this methodology; performance characteristics of the assay on these sample types were determined by [facility]. Isela Perez CNM MICROBIOLOGY - GENERAL ORDER ANILA Final Result [facility] [employer], [facility] [address], [place] [address] * GC CHLAMYDIA THIN PREP (04/27/2023 3:39 PM EDT) Only the most recent of2 resultswithin the time period is included. Chlamydia trachomatis Not Detected Not Detected 04/28/2023 2:45 PM EDT [facility], [facility] Neisseria gonorrhoeae Not Detected Not Detected 04/28/2023 2:45 PM EDT [facility], [facility] Thin Prep SPECIMEN FROM UTERINE CERVIX / Unknown 04/27/2023 3:39 PM EDT 04/27/2023 3:39 PM EDT Narrative [facility] - 04/28/2023 2:45 PM EDT Testing methodology is doctor of osteopathy mediated amplification (TMA) using the Aptima Combo 2 assay from [employer]. A negative result does not completely rule out a Chlamydia trachomatis or Neisseria gonorrhoeae infection due to potential inhibitors or levels present below the limit of detection by this assay. Results are dependent on proper collection and transport of specimen. This test is indicated for medical purposes only and should not be used for legal or forensic purposes. The performance characteristics of this assay were validated by the testing laboratory. This assay is FDA cleared to test the following specimens: clinician-collected endocervical, vaginal, male urethral swab specimens, rectal swabs, and throat/pharyngeal swabs; patient collected vaginal specimens within a clinic setting; Thin Prep Specimens in PreservCyt Solution; and first-stream, unpreserved male and female urine specimens. Detailed methodology is available upon request. us Isela Perez CNM MICROBIOLOGY - GENERAL ORDER ANILA Final Result Performing Organization Address City/[facility]/ZIP Co de Phone Number [facility] [employer], [facility] [address], [place] [address] * PN US OB < 14 WEEKS SINGLE OR FIRST GESTATION (04/20/2023 11:36 AM EDT) Anatomical Region Laterality Modality Pelvis Ultrasound 04/20/2023 11:0 3 AM EDT Lina Finn SPECIAL SERVICE REPRESENTATIVE IMG ORDERABLES Final Result * (ABNORMAL) POCT URINE (04/14/2023 11:30 AM EDT) Only the most recent of2 resultswithin the time period is included. Preg Test, Ur positive POS/NEG SEP OFFICE Lot Number [id number] SEP OFFICE Expiration Date 03 21 24 SEP OFFICE SeriAl # SEP OFFICE Control Line Yes YES/NO SEP OFFICE 04/14/2023 11:3 0 AM EDT Lina Finn SPECIAL SERVICE REPRESENTATIVE POINT OF CARE TEST ORDERA BLES Final Result Performing Organization Address City/[facility]/ZIP Co de Phone Number SEP OFFICE * (ABNORMAL) POCT KISHAN FLU+SARS ANTIGEN (11/02/2022 11:09 AM EST) SARS Antigen Positive(A) Negative SEP OFFICE Influenza A Antigen Negative Negative SEP OFFICE Influenza B Antigen Negative Negative SEP OFFICE Lot Number [id number] SEP OFFICE Expiration Date 09/11/2023 SEP OFFICE SeriAl # SEP OFFICE Control Line Yes YES/NO SEP OFFICE 11/02/2022 11:0 9 AM EST Serena Mckeon MD POINT OF CARE TEST ORDERAB LES Final Result SEP OFFICE * XR LUMBAR SPINE AP AND LATERAL (07/21/2022 11:31 AM EDT) Anatomical Region Laterality Modality L-spine Radiographic Page ging 07/21/2022 11:3 1 AM EDT Impressions 07/21/2022 12:05 PM EDT No acute abnormality of the lumbar spine. - Note: Radiology results need to be interpreted within a comprehensive clinical context. If you have questions about the radiology report, please contact the office of the ordering clinician. Narrative 07/21/2022 12:05 PM EDT AP AND LATERAL LUMBAR SPINE, 07/21/2022 11:31 AM CLINICAL HISTORY: M54.42-Lumbago with sciatica, left [id number] COMPARISON: None. PROCEDURE COMMENTS: Minimum of 3 views lumbar spine per protocol. FINDINGS: Vertebral body height and alignment anatomic. No acute fracture deformity. No destructive lesion. Intervertebral spaces relatively well maintained for age. Procedure Note Emily Jung MD - 07/21/2022 AP AND LATERAL LUMBAR SPINE, 07/21/2022 11:31 AM CLINICAL HISTORY: M54.42-Lumbago with sciatica, left [id number] COMPARISON: None. PROCEDURE COMMENTS: Minimum of 3 views lumbar spine per protocol. FINDINGS: Vertebral body height and alignment anatomic. No acutefracture deformity. No destructive lesion. Intervertebral spaces relatively well maintained for age. IMPRESSION: No acute abnormality of the lumbar spine. - Note: Radiology results need to be interpreted within a comprehensiveclinical context. If you have questions about the radiology report, please contactthe office of the ordering clinician. Adwoa Colon APRN IMG DIAGNOSTIC IMAGING OR DERABLES Final Result * VITAMIN B12/ FOLIC ACID (01/30/2022 11:29 AM EST) Only the most recent of2 resultswithin the time period is included. Vitamin B12 404 232-1,245 pg/mL 01/30/2022 8:38 PM EST [facility] Folate 11.10 >=4.80 ng/mL 01/30/2022 8:38 PM EST [facility] Blood VENOUS BLOOD / Unknown Venipuncture / Unknown 01/30/2022 11:29 AM EST 01/30/2022 11:29 AM EST Narrative [facility] - 01/30/2022 8:38 PM EST Ingestion of amanda doses of biotin (>5 mg/day) taken within 8 hours of drawing blood sample can interfere with this immunoassay test. Adwoa Colon APRN CHEMISTRY ORDERABLES Tatianna l Result [facility] 1 [facility] , [place] [address] * (ABNORMAL) VITAMIN D 25 HYDROXY (01/30/2022 11:29 AM EST) Only the most recent of2 resultswithin the time period is included. Pathologist [facility] Vit D 25 OH 13.9(L) 30.0 - 150.0 ng/mL 01/30/2022 8:37 PM EST [facility] Comment: Preferred: >= 30 ng/mL Insufficient: 21-29 ng/mL Deficient <= 20 ng/mL Possible Toxicity: >150 ng/mL Samples should not be taken from patients receiving therapy with high biotin doses (i.e. > 5 mg/day) until at least 8 hours following the last biotin administration. Blood VENOUS BLOOD / Unknown Venipuncture / Unknown 01/30/2022 11:29 AM EST 01/30/2022 11:29 AM EST [employer] Shayne FoodsN CHEMISTRY ORDERABLES Tatianna l Result Performing Organization Address [facility] Phone Number [facility] [address] [place] [address] , [place] [address] * THYROID STIMULATING HORMONE (01/30/2022 11:29 AM EST) Only the most recent of2 resultswithin the time period is included. Pathologist [facility] TSH 1.740 0.270 - 4.200 mcIU/mL 01/30/2022 8:12 PM EST [facility] Blood VENOUS BLOOD / Unknown Venipuncture / Unknown 01/30/2022 11:29 AM EST 01/30/2022 11:29 AM EST Narrative [facility] - 01/30/2022 8:12 PM EST Ingestion of amanda doses of biotin (>5 mg/day) taken within 8 hours of drawing blood sample can interfere with this immunoassay test. [employer] SPECIAL SERVICE REPRESENTATIVE CHEMISTRY ORDERABLES Tatianna l Result Performing Organization Address [facility] Co de Phone Number [facility] [address] [place] [address] , [place] [address] * T4, FREE (THYROXINE) (01/30/2022 11:29 AM EST) Free T4 1.19 0.80 - 1.80 ng/dL 01/30/2022 8:12 PM EST [facility] Blood VENOUS BLOOD / Unknown Venipuncture / Unknown 01/30/2022 11:29 AM EST 01/30/2022 11:29 AM EST Narrative [facility] [employer] [facility] - 01/30/2022 8:12 PM EST Ingestion of amanda doses of biotin (>5 mg/day) taken within 8 hours of drawing blood sample can interfere with this immunoassay test. us Adwoa Colon SPECIAL SERVICE REPRESENTATIVE CHEMISTRY ORDERABLES Tatianna loya Result [facility] [employer] [facility] 1 [facility] , [address] [place] [id number] * (ABNORMAL) LIPID SCREEN (01/30/2022 11:29 AM EST) Only the most recent of2 resultswithin the time period is included. Pathologist [facility] Cholesterol 195 <200 mg/dL 01/30/2022 8:12 PM EST [facility] Comment: < 200 Desirable 200 - 239 Borderline High >= 240 High Triglyceride 77 <150 mg/dL 01/30/2022 8:12 PM EST [facility] Comment: < 150 Normal 150 - 199 Borderline High 200 - 499 High >= 500 Very High HDL 53 >=40 mg/dL 01/30/2022 8:12 PM EST [facility] Comment: > 60 Optimal 40 - 60 Acceptable < 40 Low LDL Calculated 128(H) <100 mg/dL 01/30/2022 8:12 PM EST [facility] Comment: < 100 Optimal 100 - 129 Near or above optimal 130 - 159 Borderline High 160 - 189 High >= 190 Very High Non-HDL-C Calculated 142(H) <=129 mg/dL 01/30/2022 8:12 PM EST [facility] Comment: <130 Desirable 130-159 Above Desirable 160-189 Borderline High 190-219 High >= 220 Very High Fasting Specimen? Yes None 022 8:12 PM EST [facility] Blood VENOUS BLOOD / Unknown Venipuncture / Unknown 01/30/2022 11:29 AM EST 01/30/2022 11:29 AM EST us Adwoa Colon SPECIAL SERVICE REPRESENTATIVE CHEMISTRY ORDERABLES Tatianna shalini Result Performing Organization Address [facility] Co de Phone Number [facility] [employer], [facility] 1 [facility], [facility] [place] [address] [facility] [address] [place] [address] * Spinal Block by Anesthesia (08/01/2021 1:57 PM EDT) Narrative [facility] - 08/01/2021 1:57 PM EDT Sabina Tavarez CRNA 08/01/2021 2:00 PM Spinal Block by Anesthesia Procedure Date/Time: 08/01/2021 1:35 PM Anesthesiologist: Sha Stanley MD [facility]UNITY HEALTH NURSING DIRECTOR: Sabina Tavarez CRNA Performed by: COMMUNITY HEALTH NURSING DIRECTOR Patient Location: OR Reason for Block: At surgeons request and primary anesthetic Neuraxial Block Immediate pre anesthetic assessment completed? Yes Patient Position: Sitting Prep: ChloraPrep Sterile drape: Yes Monitoring: Blood pressure monitoring, continuous pulse oximetry and heart rate monitoring Sedation level: no sedation Local Anesthetic: Lidocaine 1% 3 ml, intradermal Approach: Midline Location: L3-4 Injection Technique: Single-shot Site localization: anatomical landmark Needle and procedure/medications Needle Type: Pencan Needle Gauge: 24 G Needle Length: 4 in Number of Attempts: 1 Bupivicaine 0.75% with 8% Dextrose 1.6 ml Adjuvant drug: Fentanyl and Morphine Fentanyl: Other (comment) (20 mcg) Morphine: 150 mcg Assessment Neuraxial Block: free flowing CSF and clear CSF Right sensory level:T4-T5 Left sensory level:T4-T5 Events: no complications noted us Sha Stanley MD ANESTHESIA ORDERABLES Final Resu lt Performing Organization Address [facility]/[place] [address] * INTRAOP AIRWAY PLACEMENT (08/01/2021 1:49 PM EDT) Narrative [facility] - 08/01/2021 1:49 PM EDT Sabina Tavarez CRNA 08/01/2021 1:50 PM Intraop Airway Placement: Airway type: Nasal cannula salter us Sha Stanley MD [place] ANESTHESIA Final Result Performing Organization Address City/[facility]/ZIP Co de Phone Number [facility] [address] [place] [id number] * CORONAVIRUS 2019 (07/29/2021 12:37 PM EDT) CORONAVIRUS [id number] Not Detected Not Detected 07/30/2021 9:12 AM EDT [facility] Comment: Caution should be exercised when interpreting a result of 'Not Detected'. A result of 'Not Detected' does not rule out COVID-19 and cannot be used as sole basis for treatment or patient management decisions. If COVID-19 is still suspected following a 'Not Detected' result, re-testing should be considered. This test is a real-time RT-PCR test intended for the qualitative detection of nucleic acid from SARS-CoV-2 in upper respiratory samples collected from individuals suspected of COVID-19. Not Detected results do not preclude COVID-19 or other respiratory viruses and should not be used as the sole basis for treatment or other patient management decisions. Test is performed on the [employer] jayjay 6800 platform under the FDA's Emergency Use Authorization (EUA). Jayjay 6800 Fact Sheet for Providers: https://www.fda.gov/media/130550/download Jayjay 6800 Fact Sheet for Patients: https://www.fda.gov/media/318850/download Performed at [facility] [address] [place] [address]. [address] [facility] [id number] Swab BOTH ANTERIOR NARES / Unknown 07/29/2021 12:37 PM EDT 07/29/2021 12:37 PM EDT us Alan Guzman MD MICROBIOLOGY - GENERAL ORDERABL ES Final Result [facility] [address] [place] [address], [place] [address] * PN US OB FOLLOW UP TRANSABDOMINAL APPROACH EACH GESTATION (03/21/2021 2:37 PM EDT) Only the most recent of2 resultswithin the time period is included. Anatomical Region Laterality Modality Pelvis Ultrasound 03/21/2021 1:38 PM EDT Jenni Scanlon APRN IMG ORDERABL ES Final Result * HEPATITIS C ANTIBODY IGM + IGG (01/20/2021 2:29 PM EST) Only the most recent of3 resultswithin the time period is included. Pathologist [facility] Hep C Ab Non-Reactiv e Non-Reacti ve 01/20/2021 11:32 PM EST [facility] [employer] Blood Venipuncture / Unknown 01/20/2021 2:29 PM EST 01/20/2021 2:29 PM EST Jenni Scanlon APRN IMMUNOLOGY ORDERABLES Final Result Performing Organization Address City/State/[facility] Co de Phone Number [facility] 1 [facility] , [place] [address] * HEMOGLOBIN A1C (01/20/2021 2:29 PM EST) [facility] Hgb A1C 5.5 4.2 - 5.6 % 01/20/2021 9:32 PM EST [facility]ED [facility] [employer] Est. Avg Glucose 111 mg/dL 01/20/2021 9:32 PM EST [facility] Blood VENOUS BLOOD / Unknown Venipuncture / Unknown 01/20/2021 2:29 PM EST 01/20/2021 2:29 PM EST Narrative [facility] - 01/20/2021 9:32 PM EST REFERENCE RANGE: Normal: 4.0-5.6% Pre-diabetes: 5.7-6.4% Provisional diagnosis of diabetes: >6.4% Hgb F>10% and anything which shortens red cell survival, such as hemolytic anemia, or unstable hemoglobin variants such as HbSS, HbSC, or HbCC, will lower the HbA1c value associated with a given level of glycemic control. Jenni Scanlon APRN CHEMISTRY ORDERABLES F inal Result PREFERRED [employer], [facility] [address] [facility] [address], [place] [address] * (ABNORMAL) MOLECULAR VAGINITIS PANEL (MVP) (01/15/2021 11:57 AM EST) Bacterial Vaginosis Detected(A) Not Detected 01/16/2021 11:12 AM EST PREFERRED LAB [facility], [facility] Comment:Abnormal/Unbalanced vaginal microbiome as indicated by decreased concentration of healthy Lactobacillus crispatus and/or Lactobacillus jensenii with significant increased concentration of unhealthy G. vaginalis, A. vaginae, BVAB, Megasphaera-1 and/or Clostridiales. Nakaseomyces glabrata (previously Elida glabrata) Not Detected Not Detected 01/16/2021 11:12 AM EST [facility] Elida group Not Detected Not Detected 01/16/2021 11:12 AM EST [facility] [employer] [facility] Comment:C. albicans, C. trop icalis, C. parapsilosis, and/or C. dubliniensis NOT detected. Elida krusei Not Detected Not Detected 01/16/2021 11:12 AM EST [facility] Trichomonas vaginalis Not Detected Not Detected 01/16/2021 11:12 AM EST [facility] Swab SPECIMEN FROM VAGINA / Unknown 01/15/2021 11:57 AM EST 01/15/2021 11:57 AM EST Narrative [facility] - 01/16/2021 11:12 AM EST Test performed using the [employer] MAX Vaginal Panel, a real-time polymerase chain (PCR) molecular nucleic acid amplification test. Jenni Scanlon APRN MICROBIOLOGY - GENERAL ORDERABLES Final Result [employer] [address], [place] [address] * EXTRA FORRESTER URINE CX (09/24/2019 12:39 AM EDT) Only the most recent of2 resultswithin the time period is included. Urine URINE SPECIMEN COLLECTION, CLEAN CATCH / Unknown 09/24/2019 12:39 AM EDT 09/24/2019 12:40 AM EDT us Onofre Soriano MD MICROBIOLOGY - GENERAL OR DERABLES Final Result [facility] [address] [place] [address] * (ABNORMAL) URINALYSIS (09/24/2019 12:39 AM EDT) Only the most recent of4 resultswithin the time period is included. UA Color Yellow 09/24/2019 12:50 AM EDT [facility] UA Appear Clear Clear 09/24/2019 12:50 AM EDT [facility] UA Glucose Negative Negative mg/dL 09/24/2019 12:50 AM EDT [facility] UA Ketones Negative Negative mg/dL 09/24/2019 12:50 AM EDT [facility] UA Blood Trace-Lysed (A) Negative 09/24/2019 12:50 AM EDT [facility] UA pH 6.0 5.0 - 8.0 pH 09/24/2019 12:50 AM EDT [facility] UA Protein Negative Negative mg/dL 09/24/2019 12:50 AM EDT [facility] UA Urobilinogen 0.2 <=1 mg/dL 9 12:50 AM EDT [facility] UA Bili Negative Negative 09/24/2019 12:50 AM EDT [facility] UA Nitrite Negative Negative 09/24/2019 12:50 AM EDT [facility] UA Leuk Est Small(A) Negative 09/24/2019 12:50 AM EDT [facility] UA Spec Grav 1.025 1.001 - 1.035 no units 09/24/2019 12:50 AM EDT [facility] Comment:Reference range misti d for random specimens only. UA WBC 20(H) 0 - 4 /HPF 09/24/2019 12:50 AM EDT [facility] UA RBC 3 0 - 3 /HPF 09/24/2019 12:50 AM EDT [facility] UA Squam Epi 2+ /LPF 09/24/2019 12:50 AM EDT [facility] UA Mucus Trace /LPF 09/24/2019 12:50 AM EDT [facility] UA Amorph 1+ /LPF 09/24/2019 12:50 AM EDT [facility] UA Bacteria 1+(A) Negative /HPF 09/24/2019 12:50 AM EDT [facility] Urine URINE SPECIMEN COLLECTION, CLEAN CATCH / Unknown 09/24/2019 12:39 AM EDT 09/24/2019 12:40 AM EDT us Onofre Soriano MD URINE ORDERABLES Final Re sult [facility] [address] [place] [address] * XR ACUTE ABDOMEN SUPINE ERECT AND OR DECUBITUS W 2 VW CHEST (09/24/2019 12:36 AM EDT) Anatomical Region Laterality Modality Abdomen, Chest Radiographic Page ging 09/24/2019 12:3 6 AM EDT Impressions 09/24/2019 12:57 AM EDT No acute finding. - Narrative 09/24/2019 12:57 AM EDT 2 VIEW CHEST X-RAY. FLAT, UPRIGHT, AND DECUBITUS VIEWS OF THE ABDOMEN. 09/24/2019 12:36 AM CLINICAL HISTORY: -CONSTIPATION COMPARISON: None. PROCEDURE COMMENTS: 2 views of the chest. Supine, upright, and decubitus views of the abdomen. FINDINGS: Chest findings: No failure, pneumonia, or effusion. No pneumothorax. Bowel gas pattern: Nonspecific and nonobstructive. Physiologic stool burden. Free air: No evidence of free air Pathologic calcification: None. Skeletal structures:Intact without acute fracture. Procedure Note Marty Hoyos MD - 09/24/2019 2 VIEW CHEST X-RAY. FLAT, UPRIGHT, AND DECUBITUS VIEWS OF THE ABDOMEN. 09/24/2019 12:36 AM CLINICAL HISTORY: -CONSTIPATION COMPARISON: None. PROCEDURE COMMENTS: 2 views of the chest. Supine, upright, and decubitusviews of the abdomen. FINDINGS: Chest findings: No failure, pneumonia, or effusion. No pneumothorax. Bowel gas pattern: Nonspecific and nonobstructive. Physiologic stoolburden. Free air: No evidence of free air Pathologic calcification: None. Skeletal structures:Intact without acute fracture. IMPRESSION: No acute finding. - Onofre Soriano MD IMG DIAGNOSTIC IMAGING OR DERABLES Final Result * US RIGHT UPPER QUADRANT (09/19/2019 8:43 AM EDT) Anatomical Region Laterality Modality Abdomen Ultrasound 09/19/2019 8:43 AM EDT Impressions 09/19/2019 8:49 AM EDT Unremarkable right upper quadrant ultrasound. - - Narrative 09/19/2019 8:49 AM EDT US RIGHT UPPER QUADRANT, 09/19/2019 8:43 AM CLINICAL HISTORY: R10.9-Unspecified abdominal agux-FZZ-02-CM. COMPARISON: None. PROCEDURE COMMENTS: Ultrasound examination of the right upper quadrant performed by the technologist. Sent to PACS along with tech notes for radiologist review. FINDINGS: Gallbladder: Normal. Hurtado's sign: Negative. Liver: Normal echogenicity. No mass. Common bile duct: Measures 2 mm. (Normal is 6mm or less. If there has been cholecystectomy, normal is 10mm or less.) Pancreas: Visualized portions are normal. Other: Right kidney non-hydronephrotic. Procedure Note Devonte Silvestre MD - 09/19/2019 US RIGHT UPPER QUADRANT, 09/19/2019 8:43 AM CLINICAL HISTORY: R10.9-Unspecified abdominal dsqz-MMI-90-CM. COMPARISON: None. PROCEDURE COMMENTS: Ultrasound examination of the right upper quadrantperformed by the technologist. Sent to PACS along with tech notes for radiologistreview. FINDINGS: Gallbladder: Normal. Hurtado's sign: Negative. Liver: Normal echogenicity. No mass. Common bile duct: Measures 2 mm. (Normal is 6mm or less. If there hasbeen cholecystectomy, normal is 10mm or less.) Pancreas: Visualized portions are normal. Other: Right kidney non-hydronephrotic. IMPRESSION: Unremarkable right upper quadrant ultrasound. - - Malcolm Herring MD IMG US ORDERABLES Tatianna l Result * SHIGA TOXIN (09/15/2019 2:10 PM EDT) Shiga Toxin Shiga toxins (produced by E. coli) not detected. Shiga toxins (produced by E. coli) not detected. 09/16/2019 12:32 PM EDT PREFERRED LAB [employer] Stool SPECIMEN FROM RECTUM / Unknown 09/15/2019 2:10 PM EDT 09/15/2019 2:13 PM EDT Malcolm Herring MD MICROBIOLOGY - GENERAL ORDERABLES Final Result Performing Organization Address [facility] Co de Phone Number PREFERRED [employer] [facility] [address] [facility] , [place] [address] * STOOL CULTURE (NO STAIN) (09/15/2019 2:10 PM EDT) Pathologist [facility] Culture No growth of enteric pathogens, including Salmonella, Shigella, Campylobacter, Vibrio, Yersinia, Aeromonas, Plesiomonas, or E. coli O157. 09/17/2019 11:40 AM EDT PREFERRED LAB [employer], [facility] Stool SPECIMEN FROM RECTUM / Unknown 09/15/2019 2:10 PM EDT 09/15/2019 2:13 PM EDT Malcolm Herring MD MICROBIOLOGY - GENERAL ORDERABLES Final Result Performing Organization Address [facility] Co de Phone Number [facility] [employer] [facility] [address] [facility] , [place] [address] * OVA AND PARASITE BASIC (09/15/2019 2:10 PM EDT) Pathologist [facility] Giardia Lamblia Antigen Not Detected Not detected 09/16/2019 10:52 AM EDT PREFERRED LAB [employer], [facility] Cryptosporidium Exam Not Detected Not Detected 09/16/2019 10:52 AM EDT [facility] [employer], [facility] Stool SPECIMEN FROM RECTUM / Unknown 09/15/2019 2:10 PM EDT 09/15/2019 2:13 PM EDT Malcolm Herring MD MICROBIOLOGY - GENERAL ORDERABLES Final Result Performing Organization Address City/[facility]/ZIP Co de Phone Number PREFERRED LAB [employer], [facility] [address] [facility] , [place] [address] * POCT URINALYSIS DIPSTICK (09/14/2019 2:08 PM EDT) Only the most recent of14 resultswithin the time period is included. Color, UA yellow CLEAR,YEL LOW,ORANG E,RUST SEP OFFICE Clarity, UA clear CLEAR,CHANTAL UDY SEP OFFICE Glucose, UA - G/DL% SEP OFFICE Bilirubin, UA - POS/NEG SEP OFFICE Ketones, UA - POS/NEG SEP core machine tender Grav, UA 1.015 1.001 - 1.035 G/DL SEP OFFICE Blood, UA - POS/NEG SEP OFFICE pH, UA 6.0 5.0 - 8 SEP OFFICE Protein, UA trace POS/NEG SEP OFFICE Urobilinogen, UA - 0.2 - 1.0 MG/DL SEP OFFICE Leukocytes, UA 2+ POS/NEG SEP OFFICE Nitrite, UA - POS/NEG SEP OFFICE UA Appear POC SEP OFFICE Lot Number [id number] SEP OFFICE Expiration Date 12/14/2020 SEP OFFICE SeriAl # SEP OFFICE Urine 09/14/2019 2:08 PM EDT Malcolm Herring MD POINT OF CARE TEST ORD ERABLES Final Result Performing Organization Address [facility]/State/ZIP Co de Phone Number SEP OFFICE * XR SHOULDER LEFT 3 VIEWS (07/06/2019 1:58 PM EDT) Anatomical Region Laterality Modality Shoulder Radiographic Page ging 07/06/2019 1:58 PM EDT Impressions 07/06/2019 2:41 PM EDT No acute bony abnormality of the shoulder. - Narrative 07/06/2019 2:41 PM EDT XR SHOULDER LEFT 3 VIEWS, 07/06/2019 1:58 PM CLINICAL HISTORY: M25.512-Pain in left yzrvopui-XBJ-08-CM G89.29-Other chronic pzox-WEZ-09-CM COMPARISON: None. PROCEDURE COMMENTS: Routine views. FINDINGS: The glenohumeral and acromioclavicular joints are congruent. There is no fracture. Joint spaces are maintained. Procedure Note Doug Rai MD - 07/06/2019 XR SHOULDER LEFT 3 VIEWS, 07/06/2019 1:58 PM CLINICAL HISTORY: M25.512-Pain in left gprnhbvl-AWR-85-CM G89.29-Other chronic cbgs-YQR-49-CM COMPARISON: None. PROCEDURE COMMENTS: Routine views. FINDINGS: The glenohumeral and acromioclavicular joints are congruent. There is no fracture. Joint spaces are maintained. IMPRESSION: No acute bony abnormality of the shoulder. - us Serena Mckeon MD IMG DIAGNOSTIC IMAGING ORD ERABLES Final Result * INTRAOP AIRWAY PLACEMENT (12/24/2018 12:35 AM EST) Narrative [facility] - 12/24/2018 12:35 AM EST Erica Bello 12/24/2018 12:35 AM Intraop Airway Placement: Airway type: Nasal cannula salter Procedure Note Erica Bello - 12/24/2018 12:35 AM EST Intraop Airway Placement: Airway type: Nasal cannula salter us Bushra Burris MD [place] ANESTHESIA Final Resu lt [facility] [address] [place] [address] * ANE EPIDURAL BLOCK (12/23/2018 2:23 PM EST) Narrative [facility] - 12/23/2018 2:23 PM EST Dorothy Uriarte CRNA 12/23/2018 2:24 PM Epidural Block by Anesthesia Procedure Date/Time: 12/23/2018 2:23 PM Staff: Resident/COMMUNITY HEALTH NURSING DIRECTOR: DOROTHY URIARTE Performed by: PHYLLIS Patient Location: OB Reason for Block: labor epidural Preanesthetic checklist: Patient identified- 2 criteria, Block plan confirmed, Resuscitaion equipment available, Supplemental O2 applied, if needed, Allergies confirmed, Block site marked, LEESA recommended monitors applied, Aseptic technique used, Anticoagulant confirmed, Necessary block equipment present, IV access functioning, Surgical procedure consent verified, Drug/solution labeled and Sedation given, if needed Epidural: Immediate pre anesthetic assessment completed? Yes Patient Position: Sitting Prep: ChloraPrep and patient draped Local Anesthetic: Lidocaine 1% 3 ml, intradermal Monitoring: Continuous pulse ox Approach: Midline Location: Lumbar (1-5) Injection Technique: DEREK saline Needle and Epidural Catheter: Needle Type: Tuohy Needle Gauge: 17 Needle Length: 9 cm Catheter depth: 11 Test Dose Time: 14:15 Test Dose: Negative and lidocaine 2% (w/ epi [id number]) Test Dose Amount: 2 Number of Attempts: 1 Loading Dose: Bupivicaine 0.25% LA loading dose amount: 8 ml Assessment: Events: no complications noted Notes: Easy epi x1 at L2-3, neg heme/CSF Procedure Note Dorothy Uriarte CRNA - 12/23/2018 2:23 PM EST Epidural Block by Anesthesia Procedure Date/Time: 12/23/2018 2:23 PM Staff: Resident/COMMUNITY HEALTH NURSING DIRECTOR: DOROTHY URIARTE Performed by: PHYLLIS Patient Location: OB Reason for Block: labor epidural Preanesthetic checklist: Patient identified- 2 criteria, Block planconfirmed, Resuscitaion equipment available, Supplemental O2 applied, ifneeded, Allergies confirmed, Block site marked, LEESA recommended monitorsapplied, Aseptic technique used, Anticoagulant confirmed, Necessary blockequipment present, IV access functioning, Surgical procedure consentverified, Drug/solution labeled and Sedation given, if needed Epidural: Immediate pre anesthetic assessment completed? Yes Patient Position: Sitting Prep: ChloraPrep and patient draped Local Anesthetic: Lidocaine 1% 3 ml, intradermal Monitoring: Continuous pulse ox Approach: Midline Location: Lumbar (1-5) Injection Technique: DEREK saline Needle and Epidural Catheter: Needle Type: Tuohy Needle Gauge: 17 Needle Length: 9 cm Catheter depth: 11 Test Dose Time: 14:15 Test Dose: Negative and lidocaine 2% (w/ epi [id number]) Test Dose Amount: 2 Number of Attempts: 1 Loading Dose: Bupivicaine 0.25% LA loading dose amount: 8 ml Assessment: Events: no complications noted Notes: Easy epi x1 at L2-3, neg heme/CSF us Bruce Portillo MD ANESTHESIA ORDERAB[place] [address] * SCANNED RADIOLOGY REPORT (08/09/2018 1:55 PM EDT) Only the most recent of2 resultswithin the time period is included. Anatomical Region Laterality Modality Other 08/09/2018 1:55 PM EDT us Unknown Unknown IMG DIAGNOSTIC IMAGING ORDERABLE S Final Result * POCT US DETAILED ANATOMY (08/04/2018 4:25 PM EDT) 08/04/2018 4:25 PM EDT us Jessica Sandoval MD POINT OF CARE TEST ORDERA BLES Final Result SEP OFFICE * TRICHOMONAS VAGINALIS BY TMA (05/24/2018 2:13 PM EDT) Trichomonas vaginalis by TMA Not Detected Not Detected 05/25/2018 3:01 PM EDT [facility] [employer] ENDOCERVICAL STRUCTURE / Unknown 05/24/2018 2:13 PM EDT 05/24/2018 2:13 PM EDT Narrative PREFERRED [employer] - 05/25/2018 3:01 PM EDT Test methodology is doctor of osteopathy mediated amplification (TMA) using the Aptima Trichomonas vaginalis assay from [employer]. A negative result does not completely rule out a Trichomonas vaginalis infection due to potential inhibitors or levels present below the limit of detection of this assay. Results are dependent on proper collection and transport of specimen. This test is indicated for medical purposes only and should not be used for legal or forensic purposes. The performance characteristics of this test were validated by [facility]. This assay is FDA cleared to test the following specimens: clinician-collected endocervical and vaginal swab specimens, and clinician collected gynecological specimens collected in [employer]. Testing on first catch male and female urine is not FDA approved by this methodology, but has been developed and validated by the [facility]. Detailed methodology is available upon request. us Jenni Scanlon APRN MICROBIOLOGY - GENERAL ORDERABLES Final Result [facility] [address] [place] [address] , [place] [address] * POCT US < 14 WEEKS ABDOMINAL (05/24/2018 1:06 PM EDT) CRL cm SEP OFFICE 05/24/2018 1:06 PM EDT us Alan Guzman MD POINT OF CARE IMAGING Final Res ult Performing Organization Address City/[facility] Co de Phone Number SEP OFFICE * HUMAN CHORIONIC GONADOTROPIN QUANTITATIVE (04/19/2018 7:42 PM EDT) Only the most recent of2 resultswithin the time period is included. Hcg Quant 389 mIU/mL 04/19/2018 8:25 PM EDT [facility] Blood VENOUS BLOOD / Unknown Venipuncture / Unknown 04/19/2018 7:42 PM EDT 04/19/2018 8:04 PM EDT Narrative [facility] - 04/19/2018 8:25 PM EDT < 5 mIU/mL Negative 5-25 mIU/mL Indeterminate > 25 mIU/mL Positive Values between 5 and 25 mIU/mL are indeterminate for . Consider confirming with repeat test in 48-72 hours. Values in should double every 3 days for the first 6 weeks. Ingestion of amanda doses of biotin (>5 mg/day) taken within 8 hours of drawing blood sample can interfere with this immunoassay test. us Daly Monroy APRN CHEMISTRY ORDERABLES Fin al Result Performing Organization Address [facility] de Phone Number [facility] [address] [place] [address] * EXTRA LAVENDER (04/15/2018 8:27 PM EDT) Blood VENOUS BLOOD / Unknown Venipuncture / Unknown 04/15/2018 8:27 PM EDT 04/15/2018 8:32 PM EDT us Vic Wilson MD HEMATOLOGY ORDERABLES Final Res ult Performing Organization Address City/[facility] Co de Phone Number [facility] [address] [place] [address] * HCG QUALITATIVE (04/15/2018 8:27 PM EDT) Only the most recent of7 resultswithin the time period is included. HCG QUAL Positive 04/15/2018 8:51 PM EDT [facility] Blood VENOUS BLOOD / Unknown Venipuncture / Unknown 04/15/2018 8:27 PM EDT 04/15/2018 8:31 PM EDT Narrative [facility] - 04/15/2018 8:51 PM EDT Ingestion of amanda doses of biotin (>5 mg/day) taken within 8 hours of drawing blood sample can interfere with this immunoassay test. us Vic Wilson MD CHEMISTRY ORDERABLES Final Resu lt [facility] [address] [place] [address] * XR KNEE RIGHT AP LAT INT EXT OBLIQUES AND SUNRISE (03/14/2018 5:32 PM EDT) Anatomical Region Laterality Modality Knee Radiographic Page ging 03/14/2018 5:32 PM EDT Impressions 03/14/2018 6:10 PM EDT No acute abnormality of the knee. Narrative 03/14/2018 6:10 PM EDT XR KNEE RIGHT AP LAT INT EXT OBLIQUES AND SUNRISE, 03/14/2018 5:32 PM CLINICAL HISTORY: -KNEE INJURY COMPARISON: None. PROCEDURE COMMENTS: Routine views per protocol. FINDINGS: No fracture or traumatic malalignment. No effusion. Joint spaces are maintained. Procedure Note Soham Mendez MD - 03/14/2018 XR KNEE RIGHT AP LAT INT EXT OBLIQUES AND SUNRISE, 03/14/2018 5:32 PM CLINICAL HISTORY: -KNEE INJURY COMPARISON: None. PROCEDURE COMMENTS: Routine views per protocol. FINDINGS: No fracture or traumatic malalignment. No effusion. Joint spaces are maintained. IMPRESSION: No acute abnormality of the knee. us Fawad Sullivan MD IMG DIAGNOSTIC IMAGING [facility]DE [facility] Final Result * XR CHEST PA AND LATERAL (03/07/2018 8:01 PM EDT) Anatomical Region Laterality Modality Chest Radiographic Page ging 03/07/2018 8:01 PM EDT Impressions 03/07/2018 8:02 PM EDT No acute finding. Narrative 03/07/2018 8:02 PM EDT PA AND LATERAL CHEST X-RAY, 03/07/2018 8:01 PM CLINICAL HISTORY: -ABDOMINAL PAIN COMPARISON: None. PROCEDURE COMMENTS: Frontal and lateral views of the chest. FINDINGS: Cardiovascular structures within normal limits. No pneumonia or effusion. No pneumothorax. Procedure Note Marty Hoyos MD - 03/07/2018 PA AND LATERAL CHEST X-RAY, 03/07/2018 8:01 PM CLINICAL HISTORY: -ABDOMINAL PAIN COMPARISON: None. PROCEDURE COMMENTS: Frontal and lateral views of the chest. FINDINGS: Cardiovascular structures within normal limits. No pneumonia or effusion.No pneumothorax. IMPRESSION: No acute finding. Cecy Tejada SPECIAL SERVICE REPRESENTATIVE IMG DIAGNOSTIC IMAGING ORDE [facility] Final Result * (ABNORMAL) BASIC METABOLIC PANEL (03/07/2018 6:47 PM EDT) Only the most recent of2 resultswithin the time period is included. Sodium 143 136 - 145 mmol/L 03/07/2018 7:30 PM EDT [facility] Potassium 3.9 3.5 - 5.0 mmol/L 03/07/2018 7:30 PM EDT [facility] Chloride 102 98 - 107 mmol/L 03/07/2018 7:30 PM EDT [facility] Total CO2 24 22 - 29 mmol/L 03/07/2018 7:30 PM EDT [facility] Anion Gap 17(H) 7 - 16 mmol/L 03/07/2018 7:30 PM EDT [facility] Calcium 9.7 8.6 - 10.2 mg/dL 03/07/2018 7:30 PM EDT [facility] Glucose Lvl 86 74 - 100 mg/dL 03/07/2018 7:30 PM EDT [facility] BUN 14 6 - 20 mg/dL 03/07/2018 7:30 PM EDT [facility] Creatinine 0.65 0.51 - 1.30 mg/dL 03/07/2018 7:30 PM EDT [facility] GFR Afr Am 146 mL/min/1.7 3 m2 03/07/2018 7:30 PM EDT [facility] GFR Non Afr Am 126 mL/min/1.7 3 m2 03/07/2018 7:30 PM EDT [facility] Comment: GFR Afr Am and GFR Non Afr Am calculated using CKD-EPI equation. GFR Category GFR(mL/min/1.73 m ) Kidney Function G1 >=90 Normal or high G2 60-89 Mildly decreased G3a 45-59 Mildly to moderately decreased G3b 30-44 Moderately to severely decreased G4 15-29 Severely decreased G5 <15 Kidney Failure Blood VENOUS BLOOD / Unknown Venipuncture / Unknown 03/07/2018 6:47 PM EDT 03/07/2018 6:56 PM EDT us Cecy Tejada APRN CHEMISTRY ORDERABLES Final Result Performing Organization Address City/State/[facility] Co de Phone Number [facility] [address] [phone] * (ABNORMAL) GLUCOSE METER POC (02/07/2018 1:10 PM EDT) [facility] Glucose Meter POC 101(H) 70 - 100 mg/dL 02/07/2018 1:12 PM EDT [facility] Sample Type Capillary 02/07/2018 1:12 PM EDT [facility] Patient Status Non-Critical Patient 02/07/2018 1:12 PM EDT [facility] Blood BLOOD SPECIMEN / Unknown 02/07/2018 1:10 PM EDT 02/07/2018 1:11 PM EDT Mildred Islas MD POINT OF CARE TEST ORDERABL ES Final Result Performing Organization Address City/[facility]/ZIP Co de Phone Number [facility] [address] [place] [address] * DIFFERENTIAL (03/24/2017 10:53 AM EDT) Only the most recent of2 resultswithin the time period is included. Neut Percent 61.7 % [facility] Lymph Percent 26.3 % [facility] [place] Percent 4.8 % [facility] Eos Percent 6.8 % [facility] Baso Percent 0.4 % [facility] Neut# 4.4 1.8 - 7.7 x10(3)/mcL [facility] Lymph# 1.9 0.6 - 4.8 x10(3)/mcL [facility] Fergus# 0.3 0.0 - 1.3 x10(3)/[facility] Eos# 0.5 0.0 - 0.5 x10(3)/[facility] Baso# 0.0 0.0 - 0.2 x10(3)/[facility] Blood specimen (specimen) 03/24/2017 10:53 AM EDT 03/24/2017 3:21 PM EDT Carmenza Mtz CN HEMATOLOGY ORDERABLES Final Result Performing Organization Address City/[facility]/ZIP Co de Phone Number [facility] [address] [place] [address] * BORDETELLA PERTUSSIS PCR (02/17/2017 9:59 PM EDT) [facility] Bordetella Pertussis PCR Negative [facility] Comment: TEST INFORMATION: This assay qualitatively detects a DNA element of Bordetella pertussis from nasal pharyngeal swabs. This assay may also detect Bordetella holmesii and Bordetella brochiseptica. This assay is an FDA approved amplified DNA test by [employer] and its performance has been verified by the [facility]. A negative result does not rule out the presence of the Bordetella pertussis in concentrations below the limit of detection for the assay. Nasopharyngeal swab (specimen) 02/17/2017 9:59 PM EDT 02/18/2017 9:23 AM EDT us Nakul Wilson [facility]HELIA MICROBIOLOGY - GENERAL [place] [address] * CT ABDOMEN PELVIS WO ORAL OR IV CONTRAST (07/30/2016 11:51 PM EDT) Anatomical Region Laterality Modality Abdomen, Pelvis Computed Tomogra phy 07/30/2016 11:5 1 PM EDT Impressions 07/31/2016 12:01 AM EDT 1. Mild prominence of the left collecting system with trace periureteral inflammation. This could represent a recently passed calculus or infectious process. Correlation with urinalysis is recommended. Narrative 07/31/2016 12:01 AM EDT CLINICAL HISTORY: -Acute left FLANK PAIN. COMPARISON: None. TECHNIQUE: CT ABDOMEN PELVIS WO ORAL OR IV CONTRAST on 07/30/2016 11:51 PM. FINDINGS: Abdomen: The unenhanced liver, gallbladder, spleen, pancreas, adrenal glands, and right kidney are grossly normal. There is mild prominence of the left collecting system with trace periureteral inflammation. There is no collecting system calcification. The caliber of the small bowel is normal. There are no enlarged abdominal lymph nodes or free fluid. The caliber of the abdominal aorta is normal. The spine is unremarkable. Pelvis: The caliber of the colon is normal. The appendix is unremarkable. There are no enlarged pelvic lymph nodes or free fluid. The urinary bladder, uterus, and adnexa are normal. The bony pelvis is unremarkable. Procedure Note Ahmet Rodriguez MD - 07/31/2016 CLINICAL HISTORY: -Acute left FLANK PAIN. COMPARISON: None. TECHNIQUE: CT ABDOMEN PELVIS WO ORAL OR IV CONTRAST on 07/30/2016 11:51PM. FINDINGS: Abdomen: The unenhanced liver, gallbladder, spleen, pancreas, adrenalglands, and right kidney are grossly normal. There is mild prominence of theleft collecting system with trace periureteral inflammation. There is nocollecting system calcification. The caliber of the small bowel is normal. There areno enlarged abdominal lymph nodes or free fluid. The caliber of the abdominalaorta is normal. The spine is unremarkable. Pelvis: The caliber of the colon is normal. The appendix is unremarkable.There are no enlarged pelvic lymph nodes or free fluid. The urinary bladder,uterus, and adnexa are normal. The bony pelvis is unremarkable. IMPRESSION 1. Mild prominence of the left collecting system with trace periureteral inflammation. This could represent a recently passed calculus orinfectious process. Correlation with urinalysis is recommended. us Gomez Toussaint MD IMG CT ORDERABLES Final Res ult * XR SHOULDER RIGHT 4 VIEWS (07/17/2011 6:47 PM EDT) Anatomical Region Laterality Modality Shoulder Radiographic Page ging 07/17/2011 6:29 PM EDT Impressions 07/17/2011 6:57 PM EDT IMPRESSION: No significant osseous, joint or soft tissue abnormality is seen. Narrative 07/17/2011 6:57 PM EDT XR SHOULDER RIGHT 4 VIEWS Jul 17, 2011 06:47:37 PM. HISTORY: Fell pain. Procedure Note Roosevelt Kenny MD - 07/17/2011 XR SHOULDER RIGHT 4 VIEWS Jul 17, 2011 06:47:37 PM. HISTORY: Fell pain. IMPRESSION: No significant osseous, joint or soft tissue abnormality isseen. Davion Gilliland DO [facility] ORDERABL ES Final Result Visit Diagnoses Diagnosis Start Date Contusion of right shoulder Contusion of shoulder region 07/17/2011 Sinusitis Unspecified sinusitis (chronic) 08/17/2011 Need for influenza vaccination Need for prophylactic vaccination and inoculation against influenza 08/17/2011 Sinusitis Unspecified sinusitis (chronic) 03/29/2013 AR (allergic rhinitis) Allergic rhinitis, cause unspecified 03/29/2013 TMJ (dislocation of temporomandibular joint), initial encounter 05/16/2014 Jaw snapping Other specified temporomandibular joint disorders 05/16/2014 LOM (left otitis media) Unspecified otitis media 12/17/2014 Cervical lymphadenitis Lymphadenitis, unspecified, except mesenteric 12/17/2014 Tension-type headache, not intractable, unspecified chronicity pattern 07/22/2016 Urinary tract infection, site unspecified 07/30/2016 Cough 02/17/2017 , unspecified gestational age 302/17/2017 Urinary tract infection without hematuria, site unspecified 03/15/2017 First trimester 03/15/2017 Encounter for supervision of normal in first trimester, unspecified 03/24/2017 Amenorrhea Absence of menstruation 03/24/2017 Vaginal bleeding in , first trimester 03/24/2017 Encounter for supervision of normal in first trimester, unspecified 03/24/2017 Amenorrhea Absence of menstruation 03/24/2017 Vaginal bleeding in , first trimester 03/24/2017 Amenorrhea Absence of menstruation 03/24/2017 Encounter for supervision of normal in first trimester, unspecified 03/24/2017 Vaginal bleeding in , first trimester 03/24/2017 Vaginal bleeding in , first trimester 03/26/2017 Dizziness Dizziness and giddiness 02/07/2018 Weakness Other malaise and fatigue 02/07/2018 Thoracic myofascial strain, initial encounter 03/07/2018 Sprain of collateral ligament of right knee, initial encounter 03/14/2018 test negative examination or test, negative result 04/08/2018 Positive test examination or test, positive result 04/15/2018 Upper abdominal pain Abdominal pain, other specified site 04/19/2018 Uterine size date discrepancy, first trimester 05/24/2018 Encounter for supervision of other normal in first trimester 05/24/2018 History of recurrent miscarriages 05/24/2018 Encounter for supervision of other normal in first trimester 06/03/2018 Encounter for supervision of other normal in second trimester 06/22/2018 Encounter for supervision of other normal in first trimester 06/22/2018 Encounter for supervision of other normal in second trimester 07/20/2018 Encounter for anatomic survey 08/04/2018 Encounter for repeat ultrasound of pyelectasis, antepartum, single or unspecified fetus 08/09/2018 Pyelectasis of fetus on ultrasound 08/09/2018 Encounter for supervision of other normal in first trimester 08/09/2018 Encounter for repeat ultrasound of pyelectasis, antepartum, single or unspecified fetus 08/17/2018 Pyelectasis of fetus on ultrasound 08/17/2018 Encounter for supervision of other normal in second trimester 09/14/2018 Pyelectasis of fetus on ultrasound 09/14/2018 Encounter for supervision of other normal in second trimester 09/17/2018 Pyelectasis of fetus on ultrasound 10/12/2018 Encounter for supervision of other normal in third trimester 10/12/2018 Encounter for supervision of other normal in first trimester 10/12/2018 Pyelectasis of fetus on ultrasound 10/26/2018 Supervision of other normal , antepartum 10/26/2018 Pyelectasis of fetus on ultrasound 11/02/2018 Encounter for supervision of other normal in third trimester 11/11/2018 Pyelectasis of fetus on ultrasound 11/11/2018 Decreased movements in third trimester, single or unspecified fetus 11/11/2018 Viral URI Acute upper respiratory infections of unspecified site 11/17/2018 Encounter for supervision of other normal in third trimester 11/25/2018 Screen for STD (sexually transmitted disease) Screening examination for venereal disease 11/25/2018 Encounter for supervision of other normal in first trimester 12/02/2018 Encounter for supervision of other normal in third trimester 12/07/2018 Encounter for supervision of other normal in first trimester 12/07/2018 Encounter for supervision of other normal in third trimester 12/16/2018 Encounter for supervision of other normal in third trimester 12/20/2018 Failure to progress in labor Other and unspecified uterine inertia, unspecified as to episode of care 12/24/2018 Status post Other postprocedural status 01/06/2019 care following delivery Routine follow-up 01/30/2019 Encounter for initial prescription of contraceptive pills General counseling for prescription of oral contraceptives 01/30/2019 Encounter for screening for malignant neoplasm of cervix Screening for malignant neoplasm of the cervix 02/21/2019 Vitamin D deficiency Unspecified vitamin D deficiency 04/06/2019 Well adult exam Routine general medical examination at a health care facility 04/06/2019 Trapezius muscle spasm Spasm of muscle 04/06/2019 Major depressive disorder, recurrent episode, mild 05/16/2019 Chronic left shoulder pain Pain in joint, shoulder region 07/06/2019 Major depressive disorder, recurrent episode, mild 07/06/2019 Chronic left shoulder pain Pain in joint, shoulder region 07/06/2019 Right sided abdominal pain Abdominal pain, unspecified site 09/14/2019 Pyuria Other nonspecific finding on examination of urine 09/14/2019 Chronic diarrhea Diarrhea 09/14/2019 Need for influenza vaccination Need for prophylactic vaccination and inoculation against influenza 09/14/2019 Chronic diarrhea Diarrhea 09/15/2019 Right sided abdominal pain Abdominal pain, unspecified site 09/19/2019 Irritable bowel syndrome with diarrhea Irritable bowel syndrome 09/21/2019 Irritable bowel syndrome with diarrhea Irritable bowel syndrome 09/23/2019 Uterine size date discrepancy Uterine size date discrepancy, antepartum condition or complication 12/16/2020 First trimester screening Other specified screening 01/15/2021 Encounter for supervision of other normal in second trimester 01/15/2021 First trimester screening Other specified screening 01/15/2021 Vaginal discharge Leukorrhea, not specified as infective 01/15/2021 History of delivery Other postprocedural status 01/15/2021 BMI 32.0-32.9,adult Body Mass Index 32.0-32.9, adult 01/15/2021 First trimester screening Other specified screening 01/20/2021 BMI 32.0-32.9,adult Body Mass Index 32.0-32.9, adult 01/20/2021 BV (bacterial vaginosis) Vaginitis and vulvovaginitis, unspecified 01/20/2021 Nausea and vomiting, intractability of vomiting not specified, unspecified vomiting type 02/07/2021 Second trimester 02/07/2021 Uterine size date discrepancy Uterine size date discrepancy, antepartum condition or complication 02/14/2021 Encounter for supervision of other normal in second trimester 02/14/2021 History of delivery Other postprocedural status 02/14/2021 Encounter for supervision of other normal in second trimester 02/19/2021 Circumvallate placenta, second trimester 02/19/2021 Encounter for supervision of other normal in second trimester 03/14/2021 History of delivery Other postprocedural status 03/14/2021 Encounter for supervision of other normal in second trimester 03/21/2021 Circumvallate placenta, second trimester 03/21/2021 Encounter for supervision of other normal in second trimester 04/14/2021 Encounter for supervision of other normal in second trimester 04/17/2021 Abnormal O'Hayes glucose challenge test, antepartum Abnormal maternal glucose tolerance, antepartum 04/30/2021 Abnormal O'Hayes glucose challenge test, antepartum Abnormal maternal glucose tolerance, antepartum 04/30/2021 Abnormal O'Hayes glucose challenge test, antepartum Abnormal maternal glucose tolerance, antepartum 05/16/2021 Encounter for supervision of other normal in second trimester 05/16/2021 History of delivery Other postprocedural status 05/19/2021 History of delivery Other postprocedural status 05/30/2021 Encounter for supervision of other normal in second trimester 05/30/2021 Encounter for supervision of other normal in third trimester 06/13/2021 History of delivery Other postprocedural status 06/13/2021 Pain in both lower extremities 06/16/2021 Third trimester 06/16/2021 Encounter for supervision of other normal in third trimester 06/20/2021 Abnormal O'Hayes glucose challenge test, antepartum Abnormal maternal glucose tolerance, antepartum 06/20/2021 History of delivery Other postprocedural status 06/20/2021 Encounter for supervision of other normal in third trimester 07/04/2021 Encounter for supervision of other normal in third trimester 07/07/2021 History of delivery Other postprocedural status 07/07/2021 Encounter for supervision of other normal in third trimester 07/15/2021 Encounter for supervision of other normal in third trimester 07/24/2021 History of delivery Other postprocedural status 07/24/2021 BMI 32.0-32.9,adult Body Mass Index 32.0-32.9, adult 07/24/2021 Abnormal O'Hayes glucose challenge test, antepartum Abnormal maternal glucose tolerance, antepartum 07/24/2021 Encounter for supervision of other normal in third trimester 07/29/2021 History of delivery Other postprocedural status 07/29/2021 Pre-op testing Preoperative examination, unspecified 07/29/2021 Encounter for laboratory testing for COVID-19 virus 07/29/2021 History of delivery Other postprocedural status 08/01/2021 Post-operative state Other postprocedural status 08/11/2021 Delivery of by section 08/11/2021 Post-operative state Other postprocedural status 09/15/2021 History of delivery Other postprocedural status 09/15/2021 Menorrhagia with regular cycle Excessive or frequent menstruation 09/15/2021 Procedure contraindicated Surgical or other procedure not carried out because of contraindication 11/10/2021 Encounter for IUD insertion Encounter for insertion of intrauterine contraceptive device 11/10/2021 IUD check up Surveillance of previously prescribed intrauterine contraceptive device 12/12/2021 Well adult exam Routine general medical examination at a health care facility 01/30/2022 Situational depression 01/30/2022 Tired Other malaise and fatigue 01/30/2022 Acute midline low back pain with left-sided sciatica 07/21/2022 Acute midline low back pain with left-sided sciatica 07/21/2022 Otalgia of both ears Otalgia, unspecified 09/22/2022 Acute otitis media with effusion of left ear 10/29/2022 Person under investigation for COVID-19 11/02/2022 COVID-19 virus detected 11/02/2022 Nausea Nausea alone 11/02/2022 [place] eye disease of left eye 11/17/2022 Acute bacterial sinusitis Acute sinusitis, unspecified 12/29/2022 First trimester screening Other specified screening 04/14/2023 Uterine size date discrepancy , first trimester 04/14/2023 Uterine size date discrepancy , first trimester 04/20/2023 Supervision of other normal , antepartum 04/27/2023 History of delivery Other postprocedural status 04/27/2023 Family history of SIDS (sudden syndrome) Family history of other condition 04/27/2023 IUD failure, 04/27/2023 First trimester screening Other specified screening 04/27/2023 Stress at home Unspecified family circumstance 04/27/2023 First trimester screening Other specified screening 04/30/2023 Supervision of other normal , antepartum 05/28/2023 Family history of SIDS (sudden infant syndrome) Family history of other condition 05/28/2023 IUD failure, 05/28/2023 Stress at home Unspecified family circumstance 05/28/2023 History of delivery Other postprocedural status 05/28/2023 Supervision of other normal , antepartum 06/23/2023 Encounter for supervision of other normal in second trimester 07/09/2023 Hematuria, unspecified type 07/09/2023 BMI 32.0-32.9,adult Body Mass Index 32.0-32.9, adult 07/09/2023 History of delivery Other postprocedural status 07/09/2023 IUD failure, 07/09/2023 Abnormal O'Hayes glucose challenge test, antepartum Abnormal maternal glucose tolerance, antepartum 08/03/2023 History of delivery Other postprocedural status 08/03/2023 Encounter for supervision of other normal in second trimester 08/03/2023 Encounter for supervision of other normal in third trimester 08/03/2023 History of delivery Other postprocedural status 08/03/2023 IUD failure, 08/03/2023 Family history of SIDS (sudden syndrome) Family history of other condition 08/03/2023 History of recurrent miscarriages 08/03/2023 Abnormal O'Hayes glucose challenge test, antepartum Abnormal maternal glucose tolerance, antepartum 08/05/2023 Gestational diabetes mellitus (GDM) affecting 08/06/2023 Nutritional deficiency Unspecified nutritional deficiency 08/18/2023 Encounter for supervision of other normal in third trimester 08/20/2023 History of delivery Other postprocedural status 08/20/2023 Diet controlled gestational diabetes mellitus (GDM) in third trimester 08/20/2023 Low weight gain during in third trimester 08/20/2023 Gestational diabetes mellitus (GDM) affecting 08/26/2023 Encounter for supervision of other normal in third trimester 08/31/2023 Diet controlled gestational diabetes mellitus (GDM) in third trimester 08/31/2023 History of delivery Other postprocedural status 08/31/2023 Gestational diabetes mellitus (GDM) affecting 09/08/2023 Supervision of other normal , antepartum 09/13/2023 Family history of SIDS (sudden infant syndrome) Family history of other condition 09/13/2023 IUD failure, 09/13/2023 History of delivery Other postprocedural status 09/13/2023 Diet controlled gestational diabetes mellitus (GDM) in third trimester 09/13/2023 History of recurrent miscarriages 09/13/2023 Encounter for supervision of other normal in third trimester 09/27/2023 History of delivery Other postprocedural status 09/27/2023 Diet controlled gestational diabetes mellitus (GDM) in third trimester 09/27/2023 Family history of SIDS (sudden syndrome) Family history of other condition 09/27/2023 IUD failure, 09/27/2023 Diet controlled gestational diabetes mellitus (GDM) in third trimester 10/05/2023 Low weight gain during in third trimester 10/05/2023 Supervision of other normal , antepartum 10/12/2023 History of delivery Other postprocedural status 10/12/2023 Diet controlled gestational diabetes mellitus (GDM) in third trimester 10/12/2023 Supervision of other normal , antepartum 10/18/2023 Diet controlled gestational diabetes mellitus (GDM) in third trimester 10/18/2023 IUD failure, 10/18/2023 History of delivery Other postprocedural status 10/18/2023 Uterine contractions during 10/19/2023 History of delivery Other postprocedural status 10/20/2023 care following delivery Routine follow-up 10/29/2023 Screening for iron deficiency anemia 12/07/2023 Nutritional deficiency Unspecified nutritional deficiency 12/07/2023 care following delivery Routine follow-up 01/20/2024 History of gestational diabetes Personal history of gestational diabetes 01/20/2024 Menorrhagia with regular cycle Excessive or frequent menstruation 01/20/2024 History of gestational diabetes Personal history of gestational diabetes 01/25/2024 Encounter for IUD insertion Encounter for insertion of intrauterine contraceptive device 01/27/2024 Menorrhagia with regular cycle Excessive or frequent menstruation 01/27/2024 Cervical stenosis (uterine cervix) Stricture and stenosis of cervix 01/27/2024 Negative test examination or test, negative result 01/27/2024 Encounter for IUD insertion Encounter for insertion of intrauterine contraceptive device 01/31/2024 Menorrhagia with regular cycle Excessive or frequent menstruation 01/31/2024 Nutritional deficiency [E63.9] Unspecified nutritional deficiency 02/29/2024 Acute midline low back pain without sciatica 03/07/2024 Acute midline thoracic back pain 03/07/2024 Acute cough 03/07/2024 Flu-like symptoms Influenza with other respiratory manifestations 05/27/2024 Well woman exam with routine gynecological exam Routine gynecological examination 09/07/2024 Encounter for IUD removal Encounter for removal of intrauterine contraceptive device 09/07/2024 Encounter for initial prescription of injectable contraceptive General counseling for initiation of other contraceptive measures 09/07/2024 Menorrhagia with regular cycle Excessive or frequent menstruation 09/07/2024 Encounter for initial prescription of injectable contraceptive General counseling for initiation of other contraceptive measures 09/11/2024 Acute cough 11/07/2024 Viral URI Acute upper respiratory infections of unspecified site 11/07/2024 Major depressive disorder, recurrent episode, mild 11/07/2024 Encounter for surveillance of injectable contraceptive Surveillance of other previously prescribed contraceptive method 12/01/2024 Encounter for initial prescription of injectable contraceptive General counseling for initiation of other contraceptive measures 01/25/2025 Menorrhagia with regular cycle Excessive or frequent menstruation 01/25/2025 Menorrhagia with regular cycle Excessive or frequent menstruation 02/19/2025 Encounter for surveillance of injectable contraceptive Surveillance of other previously prescribed contraceptive method 02/19/2025 Encounter for surveillance of injectable contraceptive Surveillance of other previously prescribed contraceptive method 05/12/2025 Upper respiratory tract infection, unspecified type 07/22/2025 Failure of descent in labor, delivered, current hospitalization Other and unspecified uterine inertia, with delivery 12/23/2018 delivery delivered delivery, without mention of indication, delivered, with or without mention of antepartum condition 12/23/2018 History of delivery Other postprocedural status 08/01/2021 Delivery of by section 08/01/2021 delivery delivered delivery, without mention of indication, delivered, with or without mention of antepartum condition 08/01/2021 Acute blood loss anemia Acute posthemorrhagic anemia 08/01/2021 History of delivery Other postprocedural status 10/20/2023 Normal labor 10/20/2023 Supervision of other normal , antepartum 10/20/2023 Diet controlled gestational diabetes mellitus (GDM) in third trimester 10/20/2023 Goals Goal Patient Goal Type Associated Problems Recent Progress Patient-Stated? Author Eat better, exercise, reach an ideal body weight General No Jump, Kary Nelly, RMA Care Teams Accounts Receivable Coordinator Relationship Specialty Start Date End Date Adwoa Colon APRN [address] [place] [id number] PCP - General Nurse Practitioner 04/06/19
--- NOTE | 2025-10-30 22:40 | ED_ITS ---
Discharge Plan Disposition Patient Disposition: Home, Self-Care Condition: Good Referrals Follow up/Referrals: Javier Najera DO [Staff Physician, Orthopedics] - See instructions Provider,Referral, MD [Primary Care Provider, Medical] - See instructions Activity Restrictions/Add. Instructions Additional Instructions/Restrictions: Take Tylenol and ibuprofen for pain control. I have sent you with a referral to Dr. Najera our orthopedic doctor. You will need to call him to schedule an appointment in clinic. Do not bear weight on the left lower extremity. Use your crutches when up and ambulating. Clinical Impressions Clinical Impression: Closed fracture of fifth metatarsal bone, Closed fracture of fourth metatarsal bone Stand Alone Forms Stand Alone Forms: Work/School Release Instructions Patient Instructions: DI for Foot Fracture Print Language Print Language: Polish Discharge ED Provider: Paris Marsh Adult HPI General Chief complaint: Extremity Injury, Lower Stated complaint: AO 12-9 fell down steps , painful left foot Time Seen by Provider: 10/30/25 22:32 Mode of Arrival: Ambulatory Source of Information: Patient Description of Symptoms (Recalled from ER Triage Doc. by RN): indira presents after falling down approximately 3 stairs while doing laundry. she landed on her left ankle adn felt a crack . the left ankle is wrapped up and splinted by her spouse. she is rating the pain 10/10 currently and has not taken anything for the pain. History of Present Illness HPI narrative: Patient is an otherwise healthy 30-year-old female who presented to the emergency department with left foot pain after falling down 3 stairs while doing laundry. Patient states that she felt a pop in her foot. Patient states that she has been unable to put weight on the left foot since this time. Patient has no other medical problems, does not take any daily medications. Patient states this occurred just prior to arrival. Related Data Allergies Allergy/AdvReac Type Severity Reaction Status Date / Time No Known Allergies Allergy Verified 10/30/25 21:31 [facility] Disclaimer: The information contained in this section may have been updated after the patient was seen, as this information can be updated by other users. Social History Smoking Status: Never smoker alcohol intake: never current occupational status: other Travel in the last 8 weeks?: None ROS Obtained: Yes All systems reviewed & no additional complaints except as documented and Yes Systems reviewed as appropriate & no additional complaints except as documented Physical Exam General General appearance: alert and in no apparent distress Head Head exam: atraumatic, normocephalic and normal inspection Eye Eye exam: Present normal appearance, PERRL and EOMI; Absent scleral icterus ENT ENT exam: Present normal exam and normal external ear exam Neck Neck exam: Present normal inspection and full ROM Chest Chest inspection: Present normal inspection and symmetric chest wall rise Respiratory Respiratory exam: Present normal lung sounds bilaterally; Absent respiratory distress or wheezes Cardiovascular Cardiovascular exam: Present regular rate, normal rhythm and normal heart sounds Abdominal Exam Abdominal exam: Present soft and distention; Absent tenderness, guarding or rebound Extremities Exam Extremities exam: Present normal inspection, full ROM and other (L foot with no tenderness at the medial or lateral malleolus, tenderness on the lateral aspect of the forefoot, no swelling) Back Exam Back exam: Present normal inspection and full ROM Neurological Exam Neurological exam: Present alert and oriented X3 Psychiatric Psychiatric exam: Present normal affect and normal mood Skin Skin exam: Present warm and dry Medical Decision Making Medical Records Medical records reviewed: Yes I reviewed the patient's medical records. Screening: Per USPSTF and CDC recommendations, given the prevalence of disease in our region, it is our hospital?s policy to screen for HIV and viral Hepatitis for all patients aged 18 and over and those with ongoing risk factors. Valentín Inquiry Pt receiving controlled substance: No Vital Signs: 10/30/25 21:25 10/31/25 00:49 Temperature 98.6 F 98.6 F Temperature Source Oral Oral Pulse Rate 84 Pulse Rate [Right Radial] 83 Respiratory Rate 18 18 Blood Pressure 146/80 H Blood Pressure [Right Arm] 154/77 H Blood Pressure Mean [Right Arm] 102 Blood Pressure Source [Right Arm] Automatic Cuff Blood Pressure Position [Right Arm] Sitting 02 Sat by Pulse Oximetry 98 Oxygen Delivery Method Room Air Room Air Lab Data Lab results reviewed: Yes I reviewed the patient's lab results. Orders (Tests/Meds): ED MEDICATIONS Discontinued Medications Generic Name Dose Route Start Last Admin Trade Name Freq PRN Reason Stop Dose Admin Acetaminophen 1,000 mg 10/30/25 21:32 10/30/25 21:43 Acetaminophen 500mg Tab PO 10/30/25 21:33 1,000 mg ONCE ONE Administration Ibuprofen 800 mg 10/30/25 21:32 10/30/25 21:41 Ibuprofen 800 Mg Tablet PO 10/30/25 21:33 800 mg ONCE ONE Administration ORDERS Category Date Time Status Foot XR left minimum 3 views [XR foot LT min 3V] Stat Exams 10/30/25 21:32 Completed XR ankle LT min 3V Stat Exams 10/30/25 21:33 Completed Medical Decision Narrative: Patient is a 30-year-old female with no significant past medical history who presented to the emergency department with left foot pain. On arrival, patient was hemodynamically stable with unremarkable vital signs. Differential includes but not limited to: Fracture, dislocation, sprain, strain, amongst others. X-rays of the left ankle and left foot were obtained. X-rays were reviewed and interpreted by myself and there was a comminuted fracture of the base of the fifth metatarsal as well as a possible fracture of the base of the fourth metatarsal. Patient was otherwise neurovascularly intact with an appropriate 2+ DP pulse. Patient was placed into a posterior slab splint patient was sent with crutches. Patient was advised to remain nonweightbearing. Patient was sent with orthopedic follow-up in clinic with Dr. Najera. Patient was otherwise discharged home in stable condition, return precautions were discussed. Critical Care Critical Care Time Critical Care Time: No
[2025-10-31 00:49] VITALS: BP 146/80; PULSE 84; RESP 18; TEMP 37; O2SAT 100
== END 2025-10-31 00:59 | disposition home or self-care (01) ==
PROVIDERS: Emergency Provider Student in an Organized Health Care Education/Training Program
DX: S92.342A Displaced fracture of fourth metatarsal bone, left foot, initial encounter for closed fracture (principal); S92.352A Displaced fracture of fifth metatarsal bone, left foot, initial encounter for closed fracture; W10.8XXA Fall (on) (from) other stairs and steps, initial encounter
CPT/HCPCS: 29515; 73610; 73630; 99284

== ENCOUNTER 2025-10-31 14:11 | Outpatient (CLI) | payer MEDICAID, SELFPAY ==
[2025-10-31 14:16] VITALS: BMI 29.1
[2025-10-31 14:43] LABS: Hematocrit 44.2 % (37.0-47.0); Hemoglobin 14.3 g/dL (12.2-16.2); Immature Granulocytes % 0.2 %; Mean Corpuscular HGB Conc 32.4 g/dL (31.8-35.4); Mean Corpuscular Hemoglobin 28.7 pg (27.0-31.2); Mean Corpuscular Volume 88.8 fl (81-99); Nucleated Red Blood Cells % 0 %; Platelet Count 294 K/mm3 (142-424); Red Blood Count 4.98 M/mm3 (4.20-5.40); Red Cell Distribution Width-SD 40.9 fL; White Blood Count 10.2 K/mm3 (4.8-10.8)
[2025-10-31 15:05] LABS: Blood Urea Nitrogen 9 mg/dl (7-17); Calcium 9.5 mg/dl (8.4-10.2); Chloride 108 mmol/L (98-107); Creatinine Clearance Estimated 172 mL/min (50-200); Creatinine,Serum 0.60 mg/dl (0.52-1.04); Estimated Glomerular Filt Rate 117 ml/min (>60); GFR (African American) 142 ML/MIN (>60); Potassium 4.0 mmoL/L (3.5-5.1)
[2025-10-31 15:17] LABS: Anion Gap 20.0 mEq/L (5-15); Carbon Dioxide 17 mmol/L (22.0-30.0); Glucose 85 mg/dl (74-100); Sodium 141 mmol/L (136-145)
== END 2025-10-31 23:59 | disposition home or self-care (01) ==
LOC: PREOP 14:12
PROVIDERS: Visit Provider Orthopaedic Surgery
DX: Z01.812 Encounter for preprocedural laboratory examination (principal)
CPT/HCPCS: 80048; 85025

== ENCOUNTER 2025-11-06 08:43 | Day surgery (SDC) | payer MEDICAID, SELFPAY ==
[2025-11-02 07:23] VITALS: BMI 29.1
[2025-11-06] VITALS (11 sets, daily range): BP systolic 97–119; BP diastolic 52–72; PULSE 82–92; RESP 18–20; TEMP 36.1–38; O2SAT 97–100
--- NOTE | 2025-11-06 09:39 | EXP.ANES.CKL ---
[facility] Disclaimer: The information contained in this section may have been updated after the patient was seen, as this information can be updated by other users. Medical History (Updated 10/31/25 @ 14:22 by Ahmet Anthony RN) Anxiety and depression Surgical History (Updated 10/31/25 @ 14:22 by Ahmet Anthony RN) History of Family History (Updated 10/31/25 @ 14:23 by Ahmet Anthony RN) Other Family history of cancer Social History (Updated 10/31/25 @ 14:24 by Ahmet Anthony RN) Smoking Status: Never smoker alcohol intake: never substance use type: denies use current occupational status: employed Travel in the last 8 weeks?: None [facility] Anesthesia Checklist Patient Identification Patient Identification: Arm Band Structural Data Admitted From: Home Planned Operative Procedure/s: ORIF Left 5th Metatarsal Consent for Planned Operative Procedure(s) Verified: Yes Verified Documents: Surgical Consent and History and Physical NPO Status Verified Time NPO: 00:00 Additional verifications Anesthesia Reactions: No Hx Blood Transfusions: No Blood Transfusion Reaction: No Airway Assessment Mallampati Score:: Class II C-Spine Mobility Assessed: Yes TMJ Mobility Assessed: Yes Dentition: Good Dentition Neurological Assessment Level of Consciousness: Awake, Alert and Appropriate Anesthesia Plan Anesthesia Risk discussed: Yes Anesthesia Plan: Verified ASA Class: II Anesthesia Type: General w/block (Left Popliteal/Adductor Canal Block. Risks/benefits explained. Pt verbalized understanding)
[2025-11-06 10:19] LABS: HCG Qualitative, Serum Negative (Negative)
--- NOTE | 2025-11-06 11:00 | XR_ITS ---
FINAL REPORT CLINICAL HISTORY: ORIF left 5th metatarsal 6.64 mgy 2.06 fluoro COMPARISON: None FINDINGS: FLUOROSCOPY LESS THAN 1 HOUR HISTORY: ORIF left fifth metatarsal FINDINGS: Fluoroscopic guidance was provided for ORIF left fifth metatarsal. 2 spot films were obtained. 2.06 minutes of fluoroscopy time were used with a dosage of 6.64 mGy. IMPRESSION: As above. Reviewed, Interpreted and Dictated by Mckenzie Vaca MD Transcribed by Irish Covington Authenticated and [facility]
--- NOTE | 2025-11-06 12:49 | P.OP_ITS ---
Date of procedure: 11/06/25 Pre-op Diagnosis:: Left proximal fifth metatarsal fracture Post-op Diagnosis:: Same Procedure performed:: Open reduction internal fixation left fifth metatarsal Surgeon:: Javier Najera DO Sales Merchandise Associate(s):: Merrill GOLDMAN Anesthesia: GETA Estimated blood loss (mL): 0 Operative findings:: Comminution of the proximal fragment not allowing for Rendon screw placement therefore open reduction internal fixation with hook plating Operative note:: Patient identified preoperatively. Left foot marked with yes my initials. Transported operative suite after undergoing a block with anesthesia. Placed upon operating bed. General anesthesia administered airway secured. Left lower extremity prepped and draped in normal sterile fashion. Once prepped and draped final operative timeout performed to identify proper patient procedure and extremity. Everyone involved in the case agreed. There is no counter indication to beginning. Did receive preoperative antibiotics. X-ray was brought into identify the fracture of the proximal fifth metatarsal. There is a fragment that was proximal attempt was made for K wire to place in the proximal fragment but upon manual placement of the K wire there was comminution of this proximal fragment therefore we would not be able to get a compressive reduction with the screw given the comminution of the proximal fragment therefore at that time decision was made for open reduction internal fixation with hook plating. Incision was made over the metatarsal careful dissection was taken down electrocautery used for cautery. Fracture site was exposed and cleaned Dell elevator was used to reduce the fracture fracture with help limit nearly reduced with K wire. Once the K wire was then proper position on the x-ray that hook plate was selected from the Arthrex metatarsal fracture set the hook was inserted into the most proximal aspect of the fifth metatarsal and then the plate was held to the bone while a screw distal to the fragment was placed. Once the screw was placed compression was maintained at the fracture site and the hook was engaged. At that time additional screw was placed proximal to the fragment and additional locking screw and another additional locking screw placed proximal to the fragment and then 2 cortical screws distally were placed to fill the plate this gave good compression and reduction of the fracture seen on the AP and lateral views. Irrigation of the wound was performed. Closed in layers deep layers with 2-0 Vicryl subcutaneous 3-0 Vicryl 3-0 nylon in the skin in interrupted fashion dave rile dressing placed with a well-padded posterior splint patient then waken anesthesia taken recovery in stable condition. Patient will remain strict nonweightbearing on the lower extremity. Condition: stable Disposition: PACU Complications:: None apparent
--- NOTE | 2025-11-06 13:03 | EXP.ANES.I ---
[facility] Anesthesia Record Part I Anesthesia Record I Intake, IV Amount: 600 Hydration: Adequate Estimated blood loss (mL): 0 Urine output (mL): 0 Blood Products used (#): none Blood Pressure: 109/59 SaO2: 98 Pulse Rate: 88 Airway Patency: Patent Respiratory Rate: 18 Temperature: 97.2 F Patient is:: Awake, Nasal O2 and Stable Stable to PACU at:: 13:10
--- NOTE | 2025-11-07 12:18 | P.PNANES_ITS ---
[facility] Anesthesia Record Part II Anesthesia Record Part II Discharge Time: 14:15 Destination: Surgical Day Care (OP Surgery) PACU nurse assessment reviewed?: Yes Patient Condition:: Good Anesthesia Complications:: None Swallowing reflex intact?: Yes Airway Patency: Patent Cyanosis?: No Blood Pressure: 105/61 SaO2: 98 Respiratory Rate: 18 Pulse Rate: 84 Temperature: 97.0 F Mental Status: Alert & Oriented Pain level:: 0 Nausea and/or vomitting:: None Intake, IV Amount: 0 Hydration: Adequate
[2025-11-07 12:19] VITALS: BP 105/61; PULSE 84; RESP 18; TEMP 36.1; O2SAT 98
== END 2025-11-06 14:20 | disposition home or self-care (01) ==
PROVIDERS: Visit Provider Orthopaedic Surgery
PROC: (CPT 28485; principal; 2025-11-06 10:15)
DX: S92.352A Displaced fracture of fifth metatarsal bone, left foot, initial encounter for closed fracture (principal); S92.342A Displaced fracture of fourth metatarsal bone, left foot, initial encounter for closed fracture; X58.XXXA Exposure to other specified factors, initial encounter
CPT/HCPCS: 28485; 73620; 76000; 84702; 84703; 96374; C1713; J0690; J1100; J1200; J2003; J2250; J2405; J2704; J3010

== ENCOUNTER 2025-11-19 10:17 | Outpatient (CLI) | payer MEDICAID, SELFPAY ==
--- OUTSIDE RECORDS SUMMARY | 2018-11-02 13:45 | XMS_ITS | Encounter Summary ---
Author [place] [address] Care Team Providers Care Ehr Trainer Name Role Phone Unavailable Primary Care Provider Unavailabl e Encounter Details Date Type Department Care Team (Late st Contact Info) Description 11/02/2018 1:45 PM EST Hospital Encounter [facility] [place] [address] Social History Tobacco Use Types Packs/Day Years Used Date Smoking Tobacco: Never Passive Smoke Exposure: Never Smokeless Tobacco: Never Alcohol Use Standard Drinks/Week Comments Never 0 (1 standard drink = 0.6 oz pur e alcohol) PHQ-2 Answer Date Recorded PHQ-2 Total Score 0 11/07/2024 Sexually Active Control Partners Comments Not Currently I.U.D. Male Comments No Sex and Gender Information Value Date Recorded Sex Assigned at Not on file Legal Sex Female 2:06 AM EDT Gender Identity Not on file Sexual Orientation Not on file COVID-19 Exposure Response Date Recorded In the last 10 days, have yo u been in contact with someone who was confirmed or suspected to have Coronavirus/COVID-19? No / Unsure 06/23/2023 10:51 AM EDT documented as of this encounter Functional Status * PHQ-9 Total Score Answer Date of Assessment Author 0 11/07/2024 11:04 AM Ame Hagen RMA * Question Answer Date of Assessment Author Little interest or pleasure in doing things 0 11/07/2024 11:04 AM Ame Hagen ae, RMA Feeling down, depressed, or hopeless 0 11/07/2024 11:04 AM Ame Hagen ae, RMA PHQ-2 Total Score 0 11/07/2024 11:04 AM Ame Hagen, MARCINA documented as of this encounter Mental Status * Question Answer Entry Date Author Because of a physical, menta l or emotional condition, does this person have difficulty doing errands alone such as visiting a doctor's office or shopping? No 11/07/2024 11:05 AM Ame Hagen ae, RMA Because of a physical, menta l or emotional condition, does this person have serious difficulty concentrating, remembering or making decisions? No 11/07/2024 11:05 AM Ame Hagen ae RMA documented in this encounter Plan of Treatment Not on file documented as of this encounter Goals Goal Patient Goal Type Associated Problems Recent Progress Patient-Stated? Author Eat better, exercise, reach an ideal body weight General No JumpKary RMA documented as of this encounter Visit Diagnoses Not on filedocumented in this encounter Additional Health Concerns Infection Onset Date Last Indicated Resolved Time COVID-19 11/02/2022 11/02/2022 11/22/2022 10:1 3 PM EST R/O COVID-19 11/07/2024 11/07/2024 11/07/2024 4:11 PM EST RSV 11/07/2024 11/07/2024 12/22/2024 10:1 2 PM EST INFLUENZA 11/14/2025 11/14/2025 documented as of this encounter
--- OUTSIDE RECORDS SUMMARY | 2021-04-30 06:10 | XMS_ITS | Encounter Summary ---
Author Organization [place] [address] Care Team Providers Care Tile Sprayer Name Role Phone ColonTyraAdwoa Gabriela JACINTO Primary Care Provider [phone] Encounter Details Date Type Department Care Team (Latest Contact Info) Description 04/30/2021 7:10 AM EDT Hospital Encounter [facility] [address] [facility] [place] [address] Left without seen Social History [...] when wearing glasses? No 11/07/2024 11:05 AM Ame Hagen ae, RMA Does this person have seriou s difficulty walking or climbing stairs? No 11/07/2024 11:05 AM Ame Hagen ae, RMA Does this person have difficulty dressing or bathing? No 11/07/2024 11:05 AM Ame Hagen ae, RMA * Is the person deaf or does he/she have serious difficulty hearing? Answer Date of Assessment Author No 02/07/2021 1:08 PM Darling Grant MA * Is the person blind or does he/she have serious difficulty seeing even when wearing glasses? Answer Date of Assessment Author No 02/07/2021 1:08 PM Darling Grant MA * Does this person have serious difficulty walking or climbing stairs? Answer Date of Assessment Author No 02/07/2021 1:08 PM Darling Grant MA * Does this person have difficulty dressing or bathing? Answer Date of Assessment Author No 02/07/2021 1:08 PM Darling Grant MA * Because of a physical, mental or emotional condition, does this person have difficulty doing errands alone such as visiting a doctor's office or shopping? Answer Date of Assessment Author No 02/07/2021 1:08 PM Darling Grant MA * PHQ-9 Total Score Answer Date [...] 11:05 AM Ame Hagen ae, RMA * Because of a physical, mental or emotional condition, does this person have serious difficulty concentrating, remembering or making decisions? Answer Entry Date Author No 02/07/2021 1:08 PM Darling Grant MA documented in this encounter Plan of Treatment Not on file documented as of this encounter Goals Goal Patient Goal Type Associated Problems Recent Progress Patient-Stated? Author Eat better, exercise, reach an ideal body weight General No Jb, Kary Villegas, RMA documented as of this encounter Visit Diagnoses Not on filedocumented in this encounter Additional Health Concerns Infection Onset Date Last Indicated Resolved Time COVID-19 11/02/2022 11/02/2022 11/22/2022 10:1 3 PM EST R/O COVID-19 11/07/2024 11/07/2024 11/07/2024 4:11 PM EST RSV 11/07/2024 11/07/2024 12/22/2024 10:1 2 PM EST INFLUENZA 11/14/2025 11/14/2025 documented as of this encounter Care Teams Tile Sprayer Relationship Specialty Start Date End Date Adwoa Colon APRN [address] [place] [address] PCP - General Nurse Practitioner 04/06/19 documented as of this encounter
--- OUTSIDE RECORDS SUMMARY | 2023-10-05 14:30 | XMS_ITS | Encounter Summary ---
Author Organization [place] [address] Care Team Providers Care Account Strategist Name Role Phone Cely Colonfer Gabriela JACINTO Primary Care Provider [phone] Encounter Details Date Type Department Care Team (Late st Contact Info) Description 10/05/2023 2:30 PM EST Hospital [facility] [place] [address] Social History Tobacco Use Types Packs/Day Years [...] on file Sexual Orientation Not on file documented as of this encounter Functional Status [...] hearing? Answer Date of Assessment Author No 07/21/2022 10:32 AM Clinton Grant MA * Is the person blind or does he/she have serious difficulty seeing even when wearing glasses? Answer Date of Assessment Author No 07/21/2022 10:32 AM Clinton Grant MA * Does this person have serious difficulty walking or climbing stairs? Answer Date of Assessment Author No 07/21/2022 10:32 AM Clinton Grant MA * Does this person have difficulty dressing or bathing? Answer Date of Assessment Author No 07/21/2022 10:32 AM Clinton Grant MA * Because of a physical, mental or emotional condition, does this person have difficulty doing errands alone such as visiting a doctor's office or shopping? Answer Date of Assessment Author No 07/21/2022 10:32 AM Clinton Grant MA * PHQ-9 Total Score Answer Date of Assessment Author 0 11/07/2024 11:04 AM Ame Hagen RMA * Question Answer Date of Assessment Author Little interest or pleasure in doing things 0 11/07/2024 11:04 AM Ame Hagen ae, RMA Feeling down, depressed, or hopeless 0 11/07/2024 11:04 AM Ame Hagen ae RMA PHQ-2 Total Score 0 11/07/2024 11:04 AM Ame Hagen RMDarling documented as of this encounter Mental Status [...] 11/07/2024 11:05 AM Ame Hagen ae RMA * Because of a physical, mental or emotional condition, does this person have serious difficulty concentrating, remembering or making decisions? Answer Entry Date Author No 07/21/2022 10:32 AM EDT Clinton Lugo MA documented in this encounter Plan of Treatment Not on file documented as of this encounter Goals Goal Patient Goal Type Associated Problems Recent Progress Patient-Stated? Author Eat better, exercise, reach an ideal body weight General No Jump, Kary Nelly, RMA documented as of this encounter Visit Diagnoses Not on filedocumented in this encounter Additional Health Concerns Infection Onset Date Last Indicated Resolved Time R/O COVID-19 11/07/2024 11/07/2024 11/07/2024 4:11 PM EST RSV 11/07/2024 11/07/2024 12/22/2024 10:1 2 PM EST INFLUENZA 11/14/2025 11/14/2025 Assessment Noted Time PHQ-9 Depression Total Score: 2 07/21/20 22 10:32 AM EDT PHQ-2 Depression Total Score: 2 07/21/20 22 10:32 AM EDT documented as of this encounter Care Teams Account Strategist Relationship Specialty Start Date End Date Adwoa Colon APRN [address] [place] [address] PCP - General Nurse Practitioner 04/06/19 documented as of this encounter
--- OUTSIDE RECORDS SUMMARY | 2025-11-14 11:10 | XMS_ITS | Encounter Summary ---
Author Organization [place] [address] Care Team Providers Care Advisor Consultant Name Role Phone ColonAdwoa Gabriela JACINTO Primary Care Provider [phone] Reason for Visit * Reason Comments Cough Fever Headache Otalgia left Encounter Details Date Type Department Care Team (Latest Contact Info) Description 11/14/2025 11:10 AM EST Office Visit [facility] [address] [address] Shagufta Wyman MD [address] [place] [address] Influenza A (Primary Dx); Acute otitis media with effusion of left ear Social History Tobacco Use Types Packs/Day Years [...] on file documented as of this encounter Last Filed Vital Signs Vital Sign Reading Time Taken Comments Blood Pressure 102/78 11/14/2025 10:57 AM EST Pulse 123 11/14/2025 10:57 AM EST Temperature 36.6 C (97.9 F) 11/14/2025 10:57 AM EST Respiratory Rate - - Oxygen Saturation 97% 11/14/2025 10:57 AM EST Inhaled Oxygen Concentration - - Weight - - Height 165.1 cm (5' 5 ) 11/14/2025 10:57 AM EST Body Mass Index - - documented in this encounter Functional Status * Is the person deaf or does he/she have serious difficulty hearing? Answer Date of Assessment Author No 11/07/2024 11:05 AM Ame Hagen RMA * Is the person blind or does he/she have serious difficulty seeing even when wearing glasses? Answer Date of Assessment Author No 11/07/2024 11:05 AM Ame Hagen RMA * Does this person have serious difficulty walking or climbing stairs? Answer Date of Assessment Author No 11/07/2024 11:05 AM Ame Hagen RMA * Does this person have difficulty dressing or bathing? Answer Date of Assessment Author No 11/07/2024 11:05 AM Ame Hagen RMA * Because of a physical, mental or emotional condition, does this person have difficulty doing errands alone such as visiting a doctor's office or shopping? Answer Date of Assessment Author No 11/07/2024 11:05 AM Ame Hagen RMA documented as of this encounter Mental Status * Because of a physical, mental or emotional condition, does this person have serious difficulty concentrating, remembering or making decisions? Answer Entry Date Author No 11/07/2024 11:05 AM Ame Hagen RMA documented in this encounter Ordered Prescriptions Prescription Sig Dispense Quantity Refills Last Filled Start Date End Date Brompheniramine-Ps eudoeph-DM 2-30-10 mg/5 mL Oral SyrupIndications:I nfluenza A Take 10 mL by mouth every 4 hours as needed (Cough, Nasal Congestion, Allergies). 240 mL 11/14/2025 cefdinir (OMNICEF) 300 mg Oral CapsuleIndications :Acute otitis media with effusion of left ear Take 1 Capsule by mouth 2 times daily for 10 days. 20 Capsule 11/14/2025 documented in this encounter Progress Notes * Shagufta Wyman MD - 11/14/2025 11:10 AM EST Assessment & Plan Dx/Orders: Diagnoses and all orders for this visit: Influenza A - Deecmddtpcbbqny-Rwyvjxwzi-UM 2-30-10 mg/5 mL Oral Syrup; Take 10 mL by mouth every 4 hours as needed (Cough, Nasal Congestion, Allergies). Dispense: 240 mL; Refill: 0 - POCT CEPHEID SARS COV-2 RNA + FLU A/B + RSV Acute otitis media with effusion of left ear - cefdinir (OMNICEF) 300 mg Oral Capsule; Take 1 Capsule by mouth 2 times daily for 10 days. Dispense: 20 Capsule; Refill: 0 Off today and tomorrow, back to work Wednesday if improving and if fever free for over 24 hours. This will change based on COVID/flu/RSV results. [facility] in [place] Can call back for extension of work note through Wednesday Results for orders placed or performed in visit on 11/14/25 POCT CEPHEID SARS COV-2 RNA + FLU A/B + RSV Result Value Ref Range SARS COV-2 RNA Negative Negative, Invalid INFLUENZA A Positive (A) Negative, Invalid INFLUENZA B Negative Negative, Invalid RSV Negative Negative, Invalid Lot Number [id number] Expiration Date 12/23/25 SeriAl # Control Line Return if symptoms worsen or fail to improve. Maureen Herman is a 30 y.o. female Chief Complaint Patient presents with Cough Fever Headache Otalgia left I am meeting patient for first time. Here with History of Present Illness Wednesday Fever, then cold then sweating - temp at home as high as 102 Then cough and throat hurt and dry Last night sneezing Left ear pain, worse the other night Staying hydrated with juice Not a great appetite No ear infections Casey at home is coughing, otherwise nothing Review of Systems Objective Blood pressure 102/78, pulse (!) 123, temperature 97.9 ??F (36.6 ??C), height 5' 5 (1.651 m), [id number]%, not currently . Body mass index is 34.61 kg/m??. Physical Exam Physical Exam Constitutional: General: She is not in acute distress. Appearance: She is ill-appearing. She is not toxic-appearing. HENT: Head: Normocephalic. Right Ear: Tympanic membrane is erythematous and bulging. Nose: Congestion and rhinorrhea present. Mouth/Throat: Mouth: Mucous membranes are moist. Pharynx: Posterior oropharyngeal erythema present. No oropharyngeal exudate. Eyes: Conjunctiva/sclera: Conjunctivae normal. Cardiovascular: Rate and Rhythm: Normal rate and regular rhythm. Comments: Tachycardic on rooming heart rate 90-100 on my exam Pulmonary: Effort: No respiratory distress. Breath sounds: No wheezing. Musculoskeletal: Cervical back: No rigidity. Skin: General: Skin is warm. Neurological: Mental Status: She is alert. Psychiatric: Mood and Affect: Mood normal. Behavior: Behavior normal. Thought Content: Thought content normal. Judgment: Judgment normal. Results Results for orders placed or performed in visit on 11/14/25 POCT CEPHEID SARS COV-2 RNA + FLU A/B + RSV Result Value Ref Range SARS COV-2 RNA Negative Negative, Invalid INFLUENZA A Positive (A) Negative, Invalid INFLUENZA B Negative Negative, Invalid RSV Negative Negative, Invalid Lot Number [id number] Expiration Date 12/23/25 SeriAl # Control Line Did not use AI tool. documented in this encounter Miscellaneous Notes * Patient Instructions - Shagufta Wyman MD - 11/14/2025 11:10 AM EST You have a respiratory infection. I recommend hot tea and honey for cough It is most important to stay well hydrated so be sure to drink plenty of water. If you are not ableto eat much, I recommend an electrolyte drink like Pedialyte. Be sure there is not a lot of sugar in the drink you choose. For nasal congestion/runny nose, consider nasal saline or steroid spray such as flonase decongestants (oxymetazoline very short term, less than 3 days at most) or oral pseudoephedrine +/- non-sedating antihistamines. For cough, consider dextromethorphan, guaifenesin, or benzonatate (requires a prescription). Immune system support: - Adequate sleep, healthy diet, avoid sugar, hydration with water or electrolyte drink (avoid high sugar drinks) Can consider: - Vitamin C 1000 mg 2-4 times per day - best for prevention - Vitamin D 5127-5303 units/day - Zinc 25-50 mg/day Take these only 5-7 days or less if symptoms begin to improve sooner. If you are getting worse over the next few days, please let us know. Bacterial infections can develop after or during a cold. documented in this encounter Plan of Treatment Not on file documented as of this encounter Goals Goal Patient Goal Type Associated Problems Recent Progress Patient-Stated? Author Eat better, exercise, reach an ideal body weight General No Jump, Kary Nelly, RMA documented as of this encounter Procedures Procedure Name Priority Date/Time Associated Diagnosis Comments POCT CEPHEID SARS COV-2 RNA + FLU A/B + RSV Routine 11/14/2025 11:40 AM EST Influenza A documented in this encounter Results * (ABNORMAL) POCT CEPHEID SARS COV-2 RNA + FLU A/B + RSV (11/14/2025 11:40 AM EST) SARS COV-2 RNA Negative Negative, Invalid SEP OFFICE INFLUENZA A Positive(A) Negative, Invalid SEP OFFICE INFLUENZA B Negative Negative, Invalid SEP OFFICE RSV Negative Negative, Invalid SEP OFFICE Lot Number [id number] SEP OFFICE Expiration Date 12/23/25 SEP OFFICE SeriAl # SEP OFFICE Control Line SEP OFFICE 11/14/2025 11:4 0 AM EST us Shagufta Wyman MD POINT OF CARE TEST ORDERABLE S Final Result SEP OFFICE documented in this encounter Visit Diagnoses Diagnosis Influenza A- Primary Influenza with other respiratory manifestations Acute otitis media with effusion of left ear documented in this encounter Discontinued Medications Medication Sig Discontinue Reason Start Date End Da te Brompheniramine-Pseudoeph -DM 2-30-10 mg/5 mL Oral SyrupIndications:Upper respiratory tract infection, unspecified type Take 10 mL by mouth every 4 hours as needed (Cough, Nasal Congestion, Allergies). DELETE-Duplicate 07/22/2025 11/14/2025 documented as of this encounter Care Teams Advisor Consultant Relationship Specialty Start Date End Date Adwoa Colon APRN [address] [place] [address] PCP - General Nurse Practitioner 04/06/19 documented as of this encounter
--- NOTE | 2025-11-19 10:18 | XR_ITS ---
FINAL REPORT CLINICAL HISTORY: left foot fx COMPARISON: 10/30/2025 FINDINGS: AP, oblique and lateral views of the left foot were obtained. There has been interval ORIF of the fracture of the base of the 5th metatarsal. Fracture fragments are aligned. The hardware appears intact. No new osseous abnormality. There continues to be lateral soft tissue edema. IMPRESSION: Interval ORIF 5th metatarsal fracture as above. Reviewed, Interpreted and Dictated by Jenny Hansen MD Transcribed by Cindy Pitts Authenticated and [facility]
--- OUTSIDE RECORDS SUMMARY | 2025-11-19 10:32 | XMS_ITS | Encounter Summary ---
Author Organization [facility] [place] [address] Care Team Providers Care Roundsman Name Role Phone ColonAdwoa Gabriela JACINTO Primary Care Provider [phone] Encounter Details Date Type Department Care Team (Latest Contact Info) Description 11/13/2025 Travel Social History Tobacco Use Types Packs/Day Years [...] Ame Hagen RMA documented in this encounter Plan of Treatment Not on file documented as of this encounter Goals Goal Patient Goal Type Associated Problems Recent Progress Patient-Stated? Author Eat better, exercise, reach an ideal body weight General No Kary Muhammad RMA documented as of this encounter Visit Diagnoses Not on filedocumented in this encounter Care Teams [place]oundsman Relationship Specialty Start Date End Date Adwoa Colon APRN [address] [place] [address] PCP - General Nurse Practitioner 04/06/19 documented as of this encounter
--- OUTSIDE RECORDS SUMMARY | 2025-11-19 10:32 | XMS_ITS | Continuity of Care Document ---
Author Organization [facility] Address [address] [place] [address] Phone Care Team Providers Care Toddler Nanny Name Role Phone Adwoa Colon APRN Primary Care Provider [phone] Encounters Date Type Department Care Team Description 11/14/2025 11:10 AM EST Office Visit [facility] [address] [place] [address] Shagufta Wyman MD Influenza A (Primary Dx); Acute otitis media with effusion of left ear 11/13/2025 Travel 11/13/2025 Nurse Triage [facility] [address] [place] [address] Adwoa Shabazz RN 11/01/2025 Refill [facility] [address] [place] [address] Tonya Montalvo APRN Medication Refill 10/31/2025 Refill [facility] [address] [place] [address] Tonya Montalvo APRN Medication Refill 10/31/2025 Refill [facility] [address] [place] [address] Kayla Conti, Medication Refill 07/22/2025 Travel 07/22/2025 11:00 AM EDT Telemedicine [facility] [address] [place] [address] Tonya Montalvo APRN Upper respiratory tract infection, unspecified type (Primary Dx) 07/22/2025 Nurse Triage [facility] [address] [place] [address] Anisha Lal RN 05/12/2025 10:45 AM EDT Clinical Support [facility] [address] [place] [address] Ame Cisneros RMA Encounter for surveillance of injectable contraceptive (Primary Dx) 02/19/2025 10:00 AM EDT Clinical Support [facility] [address] [place] [address] Lisa Li RMA Menorrhagia with regular cycle (Primary Dx); Encounter for surveillance of injectable contraceptive 02/12/2025 Telephone [facility] [address] [place] [address] Lina Finn APRN Appointment Needed 01/25/[address] [address] Kayla Conti, DO Medication Refill 12/01/2024 9:00 AM EST Clinical Support [facility] [address] [place] [address] Lisa Li RMA Encounter for surveillance of injectable contraceptive (Primary Dx) 11/07/2024 11:15 AM EST Office Visit [facility] [address] [place] [address] Adwoa Colon APRN Acute cough (Primary Dx); Viral URI; Major depressive disorder, recurrent episode, mild 09/11/2024 9:00 AM EDT Clinical Support [facility] [address] [place] [address] Jennifer Garcia CNA Encounter for initial prescription of injectable contraceptive (Primary Dx) 09/07/2024 10:45 AM EDT Office Visit [facility] [address] [facility] [address] [place] [address] Kayla Conti, DO Well woman exam with routine gynecological exam (Primary Dx); Encounter for IUD removal; Encounter for initial prescription of injectable contraceptive; Menorrhagia with regular cycle 05/27/2024 6:45 PM EDT Office Visit [facility] Ur[facility] Care [address] [address] Shameka Cruz MD Flu-like symptoms (Primary Dx) 03/07/2024 9:30 AM EDT Office Visit [facility] [address] [place] [address] Adwoa Colon APRN Acute midline low back pain without sciatica (Primary Dx); Acute midline thoracic back pain; Acute cough 02/29/2024 9:15 AM EDT Patient Outreach [facility] [address] [place] [address] [facility] (APPOINTMENT DEFERRED ) 01/31/2024 9:45 AM EDT Office Visit [facility] [address] [place] [address] [address] [place] [address] Kayla Conti, DO Encounter for IUD insertion (Primary Dx); Menorrhagia with regular cycle 01/27/2024 1:00 PM EST Office Visit [facility] [address] [facility] [address] [place] [address] Kayla Conti, DO Encounter for IUD insertion (Primary Dx); Menorrhagia with regular cycle; Cervical stenosis (uterine cervix); Negative test 01/25/2024 11:06 AM EST - 01/25/2024 11:59 PM EST Hospital Encounter [facility] DONNIE DS [address] [place] [address] History of gestational diabetes Discharge Disposition: Home or Self Care 01/20/2024 Telephone [facility] [address] [place] [address] [place] [address] Kayla Conti, IUD (Menorrhagia) 01/20/2024 10:45 AM EST Visit [facility] [address] [place] [address] [address] [place] [address] Kayla Conti, care following delivery (Primary Dx); History of gestational diabetes; Menorrhagia with regular cycle 12/09/2023 Telephone [facility] [address] [place] [address] Carmenza Gerber MD Other 12/07/2023 8:45 AM EST Patient Outreach [address],LD WIC (WIc PP Cert) 10/29/2023 9:15 AM EST Visit [facility] [address] [place] [address] Yolie Rasmussen MD care following delivery (Primary Dx) 10/20/2023 12:10 AM EST - 10/21/2023 7:17 PM EST Hospital Encounter [place] [address] [place] [address] Amarilis Gill, Carmenza Oscar MD Discharge Disposition: Home or Self Care 10/20/2023 1:18 AM EST Anesthesia Event [facility] [address] [place] [id number] Melvin Henry MD Reinhardt, David, PHYLLIS 10/20/2023 1:25 AM EST - 10/20/2023 3:25 AM EST Surgery EDG [facility] [place] [address] Carmenza Gerber MD REPEAT SECTION 10/20/2023 Travel 10/19/2023 Travel 10/19/2023 10:52 PM EST - 10/19/2023 11:19 PM EST Emergency [facility] [address] [place] [address] Maria Luisa Childers MD Uterine contractions during (Primary Dx) Discharge Disposition: Home or Self Care 10/18/2023 Travel 10/18/2023 9:00 AM EST ROUTINE FOLLOW UP OB VISIT [facility] Crit [address] [place] [address] Amarilis Gill, Supervision of other normal , antepartum (Primary Dx); Diet controlled gestational diabetes mellitus (GDM) in third trimester; IUD failure, ; History of delivery 10/12/2023 Telephone [facility] Crit [address] [place] [address] Jenni Scanlon APRN Appointment Needed (NST) 10/12/2023 9:30 AM EST ROUTINE FOLLOW UP OB VISIT [facility] Crit [address] [place] [address] Jenni Scanlon APRN Supervision of other normal , antepartum (Primary Dx); History of delivery; Diet controlled gestational diabetes mellitus (GDM) in third trimester 10/05/2023 2:30 PM EST Hospital Encounter EDG OB PREADM NURSE [facility] [place] [address] 10/05/2023 10:52 AM EST - 10/05/2023 11:59 PM EST Hospital Encounter EDG PERINATOLOGY [facility] [address] [place] [address] Kayla Conti, DO Diet controlled gestational diabetes mellitus (GDM) in third trimester; Low weight gain during in third trimester Discharge Disposition: Home or Self Care 09/27/2023 2:00 PM EST ROUTINE FOLLOW UP OB VISIT [facility] [address] [address] Yolie Rasmussen MD Encounter for supervision of other normal in third trimester (Primary Dx); Supervision of other normal , antepartum; History of delivery; Diet controlled gestational diabetes mellitus (GDM) in third trimester; Family history of SIDS (sudden infant syndrome); IUD failure, 09/13/2023 9:00 AM EDT ROUTINE FOLLOW UP OB VISIT [facility] Women's [facility] Crit [address] [facility] [place] [address] Celia Dang DO Supervision of other normal , antepartum (Primary Dx); Family history of SIDS (sudden infant syndrome); IUD failure, ; History of delivery; Diet controlled gestational diabetes mellitus (GDM) in third trimester; History of recurrent miscarriages 09/08/2023 1:00 PM EDT Telemedicine [facility] [address] [facility] [address] [place] [address],LD Gestational diabetes mellitus (GDM) affecting (Primary Dx) 08/31/2023 8:00 AM EDT ROUTINE FOLLOW UP OB VISIT [facility] Women[facility] Crit [address] [facility] [place] [address] Kayla Conti, Encounter for supervision of other normal in third trimester (Primary Dx); Diet controlled gestational diabetes mellitus (GDM) in third trimester; History of delivery 08/27/2023 Telephone [facility] [address] [facility] [address] [place] [address] Adwoa Colon APRN Patient Education 08/26/2023 Orders Only [facility] Women[facility] Crit [address] [facility] [address] Kayla Conti DO Gestational diabetes mellitus (GDM) affecting (Primary Dx) 08/20/2023 4:00 PM EDT ROUTINE FOLLOW UP OB VISIT [facility] Women[facility] [address] [facility] [place] [address] Kayla Conti, Encounter for supervision of other normal in third trimester (Primary Dx); History of delivery; Supervision of other normal , antepartum; Diet controlled gestational diabetes mellitus (GDM) in third trimester; Low weight gain during in third trimester 08/19/2023 Travel 08/18/2023 2:15 PM EDT Patient Outreach [facility] [address] [place] [address] Cindy Avendaño RN WIC (WIC PN Cert) 08/06/2023 Orders Only [address] [address] Ciera Onofre RN Gestational diabetes mellitus (GDM) affecting (Primary Dx) 08/05/2023 9:20 AM EDT - 08/05/2023 11:59 PM EDT Hospital Encounter [facility] [address] [place] [address] Abnormal O'Hayes glucose challenge test, antepartum Discharge Disposition: Home or Self Care 08/03/2023 Orders Only [place] [address] [address] [address] Amarilis Gill, Abnormal O'Hayes glucose challenge test, antepartum (Primary Dx) 08/03/[address] [id number] Amarilis Gill, Scheduled 08/03/2023 8:22 AM EDT - 08/03/2023 11:59 PM EDT Hospital Encounter [facility] LAB DONNIE DS [address] [place] [address] Encounter for supervision of other normal in second trimester Discharge Disposition: Home or Self Care 08/03/2023 8:00 AM EDT ROUTINE FOLLOW UP OB VISIT [facility] [address] [place] [address] Amarilis Gill, Encounter for supervision of other normal in third trimester (Primary Dx); History of delivery; IUD failure, ; Supervision of other normal , antepartum; Family history of SIDS (sudden infant syndrome); History of recurrent miscarriages 07/09/2023 11:00 AM EDT ROUTINE FOLLOW UP OB VISIT [address] [address] Amarilis Gill, DO Encounter for supervision of other normal in second trimester (Primary Dx); Hematuria, unspecified type; BMI 32.0-32.9,adult; History of delivery; IUD failure, ; Supervision of other normal , antepartum 06/23/2023 Travel 06/23/2023 10:52 AM EDT - 06/23/2023 11:59 PM EDT Hospital Encounter EDG PERINATOLOGY [facility] [place] [address] Isela Perez, CNM Supervision of other normal , antepartum Discharge Disposition: Home or Self Care 05/28/2023 10:15 AM EDT ROUTINE FOLLOW UP OB VISIT [address] [address] Kayla Conti, DO Supervision of other normal , antepartum (Primary Dx); Family history of SIDS (sudden syndrome); IUD failure, ; Stress at home; History of delivery 04/30/2023 3:34 PM EDT - 04/30/2023 11:59 PM EDT Hospital Encounter [facility] DONNIE [address] [address] First trimester screening Discharge Disposition: Home or Self Care 04/28/2023 Patient Outreach [facility] [address] [place] [address] Michelle Nettles Transportation 04/27/2023 Patient Outreach [facility] [address] [place] [address] Michelle Nettles Referral 04/27/2023 2:45 PM EDT INITIAL VISIT [address] [place] [address] Isela Perez, MANJINDER Supervision of other normal , antepartum (Primary Dx); History of delivery; Family history of SIDS (sudden syndrome); IUD failure, ; First trimester screening; Stress at home 04/20/2023 Telephone [place] [address] [facility] [place] [address] Eden Miranda RN Ultrasound 04/20/2023 10:55 AM EDT - 04/20/2023 11:59 PM EDT Hospital Encounter EDG PERINATOLOGY [facility] [place] [address] Lina Finn APRN Uterine size date discrepancy , first trimester Discharge Disposition: Home or Self Care 04/16/2023 Telephone [place] [address] [facility] [place] [address] Eden Miranda RN Ultrasound 04/14/2023 11:30 AM EDT INITIAL VISIT [place] [address] [place] [address] Eden Miranda RN First trimester screening (Primary Dx); Uterine size date discrepancy , first trimester 12/29/2022 4:30 PM EST Office Visit [facility] [address] [place] [address] Malcolm Herring MD Acute bacterial sinusitis (Primary Dx) 11/17/2022 10:30 AM EST Office Visit [facility] [address] 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 [address] Serena Mckeon MD Person under investigation for COVID-19 (Primary Dx); COVID-19 virus detected; Nausea 10/29/2022 1:45 PM EST Office Visit [facility] [address] [place] [address] Adwoa Colon APRN Acute otitis media with effusion of left ear (Primary Dx) 10/28/2022 Telephone [facility] [address] [place] [address] Adwoa Colon APRN Appointment Needed (Left ear pain ) 09/29/2022 Patient Outreach [facility] [address] [place] [address] Adwoa Cooln APRN Central Patient Navigator Outreach (PAP) 09/22/2022 2:15 PM EDT Telemedicine [facility] [address] [place] [address] Adwoa Colon APRN Otalgia of both ears (Primary Dx) 09/22/[address] [place] [address] Adwoa Colon APRN Appointment Needed (ears) 07/21/[address] [place] [address] Adwoa Colon APRN Results (XR LUMBAR SPINE AP AND LATERAL) 07/21/2022 Travel 07/21/2022 11:07 AM EDT - 07/21/2022 11:59 PM EDT Hospital Encounter [facility] [address] [place] [address] Acute midline low back pain with left-sided sciatica Discharge Disposition: Home or Self Care 07/21/2022 10:30 AM EDT Office Visit [facility] [address] [place] [address] Adwoa Colon APRN Acute midline low back pain with left-sided sciatica (Primary Dx) 02/19/2022 Patient Outreach [facility] [address] [place] [address] Adwoa Colon APRN Central Patient Navigator Outreach (PAP) 01/31/2022 Orders Only [facility] [address] [place] [address] Adwoa Colon APRN 01/30/2022 11:00 AM EST Office Visit [facility] [address] [place] [address] Adwoa Colon, DIRECTOR ORACLE Well adult exam (Primary Dx); Situational depression; Tired 12/12/2021 4:00 PM EST Office Visit [facility] Jaskaran Singh [address] [facility] [address] [place] [address] Amarilis Gill, IUD check up (Primary Dx) 11/10/2021 1:30 PM EST Office Visit [facility] Jaskaran Singh [address] [place] [address] [address] [place] [address] Amarilis Gill, Procedure contraindicated (Primary Dx); Encounter for IUD insertion 09/15/2021 Telephone [facility] Jaskaran Singh [address] [place] [address] [address] [place] [address] Amarilis Gill, Prior Authorization (iud) 09/15/2021 Travel 09/15/2021 9:00 AM EDT Visit [facility] Jaskaran Winchesterf [address] [facility] [address] [place] [address] Amarilis Gill DO Post-operative state (Primary Dx); History of delivery; Menorrhagia with regular cycle 08/11/2021 Travel 08/11/2021 1:10 PM EDT Visit [facility] Jaskaran Morel Edgardo Ranulf[address] [place] [address] Road [address] [place] [address] Carmenza Gerber MD Post-operative state (Primary Dx); Delivery of by section 08/01/2021 10:07 AM EDT - 08/03/2021 5:02 PM EDT Hospital Encounter EDG [address] [place], [place] [id number] Alan Guzman MD Discharge Disposition: Home or Self Care 08/01/2021 Travel 08/01/2021 12:00 PM EDT - 08/01/2021 2:00 PM EDT Surgery EDG [facility] [facility] Alan Guzman MD REPEAT SECTION 08/01/2021 1:25 PM EDT Anesthesia Event [facility] [address] [place] [id number] Joe Hollis MD Merkle Serey, Jennifer L, RN CARDIOVASCULAR ICU 07/29/2021 Travel 07/29/2021 3:20 PM EDT ROUTINE FOLLOW UP OB VISIT [address] [place] [address] Yolie Rasmussen MD Encounter for supervision of other normal in third trimester (Primary Dx); History of delivery 07/29/2021 12:36 PM EDT - 07/29/2021 11:59 PM EDT Hospital Encounter [facility] DONNIE DS [address] [place] [address] Covid19, [facility] Pre-op testing; Encounter for laboratory testing for COVID-19 virus Discharge Disposition: Home or Self Care 07/24/2021 Travel 07/24/2021 2:20 PM EDT ROUTINE FOLLOW UP OB VISIT [facility] [address] [place] [address] Yolie Rasmussen MD Encounter for supervision of other normal in third trimester (Primary Dx); History of delivery; BMI 32.0-32.9,adult; Abnormal O'Hayes glucose challenge test, antepartum 07/15/2021 Travel 07/15/2021 8:40 AM EDT ROUTINE FOLLOW UP OB VISIT [facility] [address] [facility] [place] [address] Lina Finn, DIRECTOR ORACLE Encounter for supervision of other normal in third trimester 07/07/2021 Travel 07/07/2021 1:20 PM EDT [facility] [address] [place] [address] Isela Perez, CNM Encounter for supervision of other normal in third trimester (Primary Dx); History of delivery 07/04/2021 Travel 07/04/2021 10:50 AM EDT ROUTINE FOLLOW UP OB VISIT [address] [place] [address] Alan Guzman MD Encounter for supervision of other normal in third trimester (Primary Dx) 06/26/2021 1:00 PM EDT Office Visit [facility] OB PREADM NURSE [address] [place] [address] 06/20/2021 Travel 06/20/2021 1:10 PM EDT ROUTINE FOLLOW UP OB VISIT [address] [place] [address] Carmenza Gerber MD Encounter for supervision of other normal in third trimester (Primary Dx); Abnormal O'Hayes glucose challenge test, antepartum; History of delivery 06/16/2021 Travel 06/16/2021 9:15 AM EDT Office Visit [facility] [address] [place] [address] Adwoa Colon, DIRECTOR ORACLE Pain in both lower extremities (Primary Dx); Third trimester 06/13/2021 Travel 06/13/2021 9:20 AM EDT ROUTINE FOLLOW UP OB VISIT [address] [place] [address] Kayla Conti DO Encounter for supervision of other normal in third trimester (Primary Dx); History of delivery 05/30/2021 Travel 05/30/2021 1:00 PM EDT ROUTINE FOLLOW UP OB VISIT [facility] H [address] [place] [address] lAan Guzman MD History of delivery (Primary Dx); Encounter for supervision of other normal in second trimester 05/19/2021 Telephone [facility] [address] [facility] [place] [address] Lina Finn, DIRECTOR ORACLE Scheduled ( INFORMATION ) 05/16/2021 Travel 05/16/2021 1:00 PM EDT ROUTINE FOLLOW UP OB VISIT [facility] Women's [address] [place] [address] Lina Finn, DIRECTOR ORACLE Abnormal O'Hayes glucose challenge test, antepartum (Primary Dx); Encounter for supervision of other normal in second trimester 04/30/2021 8:45 AM EDT - 04/30/2021 11:59 PM EDT Hospital Encounter [facility] DONNIE DS [address] [place] [address] Abnormal O'Hayes glucose challenge test, antepartum Discharge Disposition: Home or Self Care 04/30/2021 Orders Only [facility] [address] [place] [address] Alan Guzman MD Abnormal O'Hayes glucose challenge test, antepartum (Primary Dx) 04/30/2021 7:10 AM EDT Hospital Encounter [facility] [address] [place] [address] Left without seen 04/30/2021 Travel 04/17/2021 11:11 AM EDT - 04/17/2021 11:59 PM EDT Hospital Encounter [facility] DONNIE DS [address] [place] [address] Encounter for supervision of other normal in second trimester Discharge Disposition: Home or Self Care 04/17/2021 Travel 04/14/2021 Travel 04/14/2021 4:00 PM EDT ROUTINE FOLLOW UP OB VISIT [facility] [address] [place] [address] Alan Guzman MD Encounter for supervision of other normal in second trimester (Primary Dx) 03/26/2021 Telephone [facility] [address] [place] [address] Eden Dudley RN Abdominal Pain 03/21/2021 Travel 03/21/2021 1:15 PM EDT - 03/21/2021 11:59 PM EDT Hospital Encounter [facility]G PERINATOLOGY [facility] [place] [address] Jenni Scanlon APRN Encounter for supervision of other normal in second trimester; Circumvallate placenta, second trimester Discharge Disposition: Home or Self Care 03/14/2021 Travel 03/14/2021 1:50 PM EDT ROUTINE FOLLOW UP OB VISIT [facility] [address] [place] [address] Alan Guzman MD Encounter for supervision of other normal in second trimester (Primary Dx); History of delivery 02/26/2021 Travel 02/19/2021 Orders Only [facility] [address] [place] [address] Jenni Scanlon, OPHELIA Encounter for supervision of other normal in second trimester (Primary Dx); Circumvallate placenta, second trimester 02/14/2021 Travel 02/14/2021 12:57 PM EDT - 02/14/2021 11:59 PM EDT Hospital Encounter [facility]G PERINATOLOGY [facility] [place] [address] Jenni Scanlon APRN Uterine size date discrepancy Discharge Disposition: Home or Self Care 02/14/2021 10:40 AM EDT ROUTINE FOLLOW UP OB VISIT [facility] [address] [place] [address] Yolie Rasmussen MD Encounter for supervision of other normal in second trimester (Primary Dx); History of delivery 02/07/2021 1:15 PM EDT Office Visit [facility] [address] [place] [id number] Adwoa Colon APRN Nausea and vomiting, intractability of vomiting not specified, unspecified vomiting type (Primary Dx); Second trimester 02/06/2021 Travel 01/28/2021 Travel 01/20/2021 2:28 PM EST - 01/20/2021 11:59 PM EST Hospital Encounter [facility] DONNIE DS [address] [place] [id number] First trimester screening; BMI 32.0-32.9,adult Discharge Disposition: Home or Self Care 01/20/2021 Travel 01/20/2021 Telephone [facility] [address] [facility] [place] [address] Tatiana Evangelista, RN Results 01/15/2021 Travel 01/15/2021 Telephone [facility] [address] [place] [address] Tatiana Evangelista, RN Appointment Needed 01/15/2021 9:30 AM EST Telemedicine [place] [address] [address] [facility] [place] [address] First trimester screening (Primary Dx) 01/15/2021 11:30 AM EST INITIAL VISIT [facility] [address] [place] [address] Jenni Scanlon APRN Encounter for supervision of other normal in second trimester (Primary Dx); First trimester screening; Vaginal discharge; History of delivery; BMI 32.0-32.9,adult 01/14/2021 Travel 12/16/2020 Telephone [facility] [address] [facility] [address] [place] [phone] Jenni Scanlon, DIRECTOR ORACLE Other 12/16/2020 Travel 09/25/2019 Patient Outreach [place] [address] [place], [place] [id number] Jair Grant, HAY RAKE OPERATOR Follow-Up Call 09/23/2019 11:45 PM EDT - 09/24/2019 1:07 AM EDT [facility] [address] [place] [address] Onofre Soriano MD Irritable bowel syndrome with diarrhea (Primary Dx) Discharge Disposition: Home or Self Care 09/23/2019 Travel 09/21/2019 Telephone [facility] [address] [place] [address] Merlene Cueva CMA Prior Authorization (xifaxan needs a PA) 09/21/2019 10:15 AM EDT Office Visit [facility] [address] [place] [address] Serena Mckeon MD Irritable bowel syndrome with diarrhea (Primary Dx) 09/19/2019 8:01 AM EDT - 09/19/2019 11:59 PM EDT Hospital Encounter [facility] Ultrasound [address] [place] [address] Malcolm Herring MD Right sided abdominal pain Discharge Disposition: Home or Self Care 09/15/2019 1:50 PM EDT - 09/15/2019 11:59 PM EDT Hospital Encounter [facility] [address] [place] [address] Chronic diarrhea Discharge Disposition: Home or Self Care 09/14/2019 1:45 PM EDT Office Visit [facility] [address] [place] [address] Malcolm Herring MD Right sided abdominal pain (Primary Dx); Pyuria; Chronic diarrhea; Need for influenza vaccination 08/11/2019 12:30 PM EDT - 08/11/2019 11:59 PM EDT Hospital Encounter [address] [place] [address] Cindy Vallejo, PT Discharge Disposition: Home or Self Care 08/03/2019 1:00 PM EDT - 08/03/2019 11:59 PM EDT Hospital Encounter [place] [address] [place] [address] Cindy Vallejo, PT Discharge Disposition: Home or Self Care 08/01/2019 1:00 PM EDT - 08/01/2019 11:59 PM EDT Hospital Encounter [address] [place] [address] Cindy Vallejo, PT Discharge Disposition: Home or Self Care 07/21/2019 11:53 AM EDT - 07/21/2019 11:59 PM EDT Hospital Encounter [address] [place] [address] Cindy Vallejo, PT Discharge Disposition: Home or Self Care 07/18/2019 3:23 PM EDT - 07/18/2019 11:59 PM EDT Hospital Encounter [address] [place] [address] Cindy Vallejo, PT Discharge Disposition: Home or Self Care 07/14/2019 11:49 AM EDT - 07/14/2019 11:59 PM EDT Hospital Encounter [address] [place] [address] Cindy Vallejo, PT Discharge Disposition: Home or Self Care 07/06/2019 1:45 PM EDT - 07/06/2019 11:59 PM EDT Hospital Encounter GRT XRAY [address] [place] [address] Chronic left shoulder pain Discharge Disposition: Home or Self Care 07/06/2019 1:15 PM EDT Office Visit [facility] [address] [place] [address] Serena Mckeon MD Chronic left shoulder pain (Primary Dx); Major depressive disorder, recurrent episode, mild 05/16/2019 11:15 AM EDT Office Visit [facility] [address] [place] [address] Serena Mckeon MD Major depressive disorder, recurrent episode, mild (Primary Dx) 04/06/2019 Orders Only [facility] [address] [place] [address] Adwoa Colon APRN Vitamin D deficiency (Primary Dx) 04/06/2019 9:00 AM EDT Office Visit [facility] [address] [place] [address] Adwoa Colon APRN Well adult exam (Primary Dx); Trapezius muscle spasm 02/21/2019 Lab Requisition [facility] [place] [address] [facility]. Health Encounter for screening for malignant neoplasm of cervix 01/30/[address] [place] [phone] Yolie Rasmussen MD Precertification 01/30/2019 1:00 PM EDT Visit [address] [place] [phone] Yolie Rasmussen MD care following delivery (Primary Dx); Encounter for initial prescription of contraceptive pills 01/06/2019 1:40 PM EST Visit [address] [place] [phone] Alan Guzman MD Status post (Primary Dx) 12/27/2018 2:00 PM EST - 12/27/2018 11:59 PM EST Hospital Encounter [place] [address] [place] [address] Discharge Disposition: Home or Self Care 12/23/2018 7:37 AM EST - 12/26/2018 2:23 PM EST Hospital Encounter [address] [address] [place] [address] Spangler, Magnolia N, DO Discharge Disposition: Home or Self Care 12/24/2018 12:30 AM EST - 12/24/2018 2:30 AM EST Surgery EDG LDFormerly named [facility] [address] [place] [id number] Magnolia Spangler, PRIMARY SECTION 12/23/2018 2:04 PM EST Anesthesia Event EDG LDFormerly named [facility] [place] [address] Bushra Burris MD Wells, Meagan, CRNA 12/23/2018 7:30 AM EST - 12/23/2018 7:36 AM EST Hospital Encounter [facility] L[facility]D Indu[facility] [place] [address] Discharge Disposition: Home or Self Care 12/20/2018 1:10 PM EST ROUTINE FOLLOW UP OB VISIT [facility] [address] [place] [address] Magnolia Spangler, DO Encounter for supervision of other normal in third trimester (Primary Dx) 12/16/2018 1:10 PM EST ROUTINE FOLLOW UP OB VISIT [facility] [address] [place] [address] Jessica Sandoval MD Encounter for supervision of other normal in third trimester (Primary Dx) 12/07/2018 1:10 PM EST ROUTINE FOLLOW UP OB VISIT [facility] [address] [place] [address] Magnolia Spangler, Encounter for supervision of other normal in third trimester (Primary Dx); Encounter for supervision of other normal in first trimester 12/02/2018 9:20 AM EST ROUTINE FOLLOW UP OB VISIT [facility] [address] [place] [address] Magnolia Spangler, Encounter for supervision of other normal in first trimester (Primary Dx) 11/25/2018 4:00 PM EST ROUTINE FOLLOW UP OB VISIT [facility] [address] [place] [address] Alan Guzman MD Encounter for supervision of other normal in third trimester (Primary Dx); Screen for STD (sexually transmitted disease) 11/17/2018 5:45 PM EST Office Visit [facility] [address] [phone] Rudolph Pacheco, DO Viral URI (Primary Dx) 11/11/2018 1:40 PM EST ROUTINE FOLLOW UP OB VISIT [address] [place] [phone] Alan Guzman MD Encounter for supervision of other normal in third trimester (Primary Dx); Pyelectasis of fetus on ultrasound; Decreased movements in third trimester, single or unspecified fetus 11/07/2018 Telephone [facility] LDRP [facility] [place] [address] Jessica Sandoval MD Results (urine results) 11/02/2018 2:39 PM EST - 11/02/2018 11:59 PM EST Hospital Encounter [facility] PERINATOLOGY US [facility] [place] [address] Magnolia Spangler, DO Pyelectasis of fetus on ultrasound Discharge Disposition: Home or Self Care 11/02/2018 1:45 PM EST Hospital Encounter ED[facility] OB PREADM NURSE [facility] [place] [address] 10/26/2018 4:00 PM EST ROUTINE FOLLOW UP OB VISIT [address] [place] [phone] Jessica Sandoval MD Supervision of other normal , antepartum (Primary Dx); Pyelectasis of fetus on ultrasound 10/12/2018 1:20 PM EST ROUTINE FOLLOW UP OB VISIT [address] [place] [phone] Yolie Rasmussen MD Encounter for supervision of other normal in third trimester (Primary Dx); Pyelectasis of fetus on ultrasound; Encounter for supervision of other normal in first trimester 09/17/2018 10:18 AM EDT - 09/17/2018 11:59 PM EDT Hospital Encounter [facility] DONNIE DS [address] [place] [phone] Encounter for supervision of other normal in second trimester Discharge Disposition: Home or Self Care 09/14/2018 1:10 PM EDT ROUTINE FOLLOW UP OB VISIT [facility] [place] [address] [place] [address] Magnolia Spangler DO Encounter for supervision of other normal in second trimester (Primary Dx); Pyelectasis of fetus on ultrasound 08/17/2018 2:43 PM EDT - 08/17/2018 11:59 PM EDT Hospital Encounter EDG PERINATOLOGY [facility] [place] [address] Yolie Rasmussen MD Encounter for repeat ultrasound of pyelectasis, antepartum, single or unspecified fetus Discharge Disposition: Home or Self Care 08/17/2018 2:30 PM EDT ROUTINE FOLLOW UP OB VISIT [facility] [place] [address] [place] [address] Yolie Rasmussen MD Pyelectasis of fetus on ultrasound 08/09/2018 Telephone [facility] [address] [place] [address] Yolie Rasmussen MD Results 08/04/2018 4:00 PM EDT Clinical Support [facility] [address] [place] [address] Andreia Gray, BRIAN Encounter for anatomic survey (Primary Dx) 07/20/2018 1:40 PM EDT ROUTINE FOLLOW UP [facility] [address] [place] [address] Alan Guzman MD Encounter for supervision of other normal in second trimester (Primary Dx) 06/22/2018 Telephone [facility] [address] [place] [address] Romi Valles, Clerical Staff Advice Only (Genetic counseling does not need authorization. The patient will be contacted in order to facilitate scheduling an appointment with the genetic counselors. ) 06/22/2018 1:10 PM EDT ROUTINE FOLLOW UP OB VISIT [facility] [address] [facility] [address] [place] [address] Magnolia Spangler DO Encounter for supervision of other normal in second trimester (Primary Dx); Encounter for supervision of other normal in first trimester 06/03/2018 4:44 PM EDT - 06/03/2018 11:59 PM EDT Hospital Encounter [facility] DON[facility]IE [address] [place] [address] Encounter for supervision of other normal in first trimester Discharge Disposition: Home or Self Care 05/24/2018 1:00 PM EDT Clinical Support [place] [address] [place] [address] Andreia Gray RDMS Uterine size date discrepancy, first trimester (Primary Dx) 05/24/2018 1:30 PM EDT INITIAL VISIT [address] [place] [address] Jenni Scanlon APRN Encounter for supervision of other normal in first trimester (Primary Dx); History of recurrent miscarriages 04/20/2018 Patient Outreach [facility] [address] [place] [address] Debby Miles LPN Care Transition; ED Follow-Up Call 04/19/2018 7:05 PM EDT - 04/19/2018 9:11 PM EDT [facility] [address] [place] [address] Malcolm Vergara MD Dozier, Emily J, DO Upper abdominal pain (Primary Dx) Discharge Disposition: Home or Self Care 04/19/2018 Patient Outreach [facility] [address] [place] [address] Debby Miles, ROOM COOLER INSTALLER Care Transition; ED Follow-Up Call 04/15/2018 8:04 PM EDT - 04/15/2018 9:28 PM EDT Emergency [place] [phone] [place] [address] Vic Wilson MD Positive test (Primary Dx) Discharge Disposition: Home or Self Care 04/11/2018 Patient Outreach [address] [address] Debby Miles, ROOM COOLER INSTALLER Care Transition; ED Follow-Up Call 04/08/2018 5:48 PM EDT - 04/08/2018 6:46 PM EDT [address] [address] Kvng Nicolas MD test negative (Primary Dx) Discharge Disposition: Home or Self Care 03/15/2018 Patient Outreach [address] [address] Debby Miles, ROOM COOLER INSTALLER Care Transition; ED Follow-Up Call 03/14/2018 4:50 PM EDT - 03/14/2018 6:20 PM EDT [address] [address] Fawad Sullivan MD Sprain of collateral ligament of right knee, initial encounter (Primary Dx) Discharge Disposition: Home or Self Care 03/08/2018 Patient Outreach [address] [phone] Debby Miles, ROOM COOLER INSTALLER Care Transition; ED Follow-Up Call 03/07/2018 6:29 PM EDT - 03/07/2018 8:36 PM EDT [address] [address] Erich Wyman MD Thoracic myofascial strain, initial encounter (Primary Dx) Discharge Disposition: Home or Self Care 02/07/2018 12:59 PM EDT - 02/07/2018 2:50 PM EDT [facility] [address] [place] [address] Mildred Islas MD Dizziness (Primary Dx); Weakness Discharge Disposition: Home or Self Care 03/26/2017 Orders Only [facility] [address] [place] [address] Natasha Banerjee MD Vaginal bleeding in , first trimester (Primary Dx) 03/24/2017 7:38 PM EDT - 03/24/2017 11:59 PM EDT Hospital Encounter [facility] LAB [facility] [place] [address] Encounter for supervision of normal in first trimester, unspecified ; Amenorrhea; Vaginal bleeding in , first trimester Discharge Disposition: Home or Self Care 03/24/2017 10:53 AM EDT - 03/24/2017 7:37 PM EDT Hospital Encounter [facility] DONNIE DS [address] [place] [address] Encounter for supervision of normal in first trimester, unspecified ; Amenorrhea; Vaginal bleeding in , first trimester Discharge Disposition: Home or Self Care 03/24/2017 10:00 AM EDT INITIAL VISIT [address] [phone] Deisy Castellanos CCMA Amenorrhea (Primary Dx); Encounter for supervision of normal in first trimester, unspecified ; Vaginal bleeding in , first trimester 03/16/2017 Patient Outreach [facility]ade [address] [place] [phone] Debby Miles LPN Care Transition; Care Management - Chart Review; ED Follow-Up Call 03/15/2017 7:43 PM EDT - 03/15/2017 9:03 PM EDT [facility] [address] [place] [address] Onofre Soriano MD Urinary tract infection without hematuria, site unspecified (Primary Dx); First trimester Discharge Disposition: Home or Self Care 02/19/2017 Patient Outreach [facility] [address] [place] [address] Kary Muhammad RMA ED Follow-Up Call 02/17/2017 8:52 PM EDT - 02/17/2017 10:11 PM EDT [facility] [address] [place] [address] Davion Gilliland, Cough (Primary Dx); , unspecified gestational age Discharge Disposition: Home or Self Care 08/04/2016 Patient Outreach [facility] [address] [place] [address] Isela Chavis RMA ED Follow-up 07/31/2016 Patient Outreach [facility] [address] [place] [address] Denise Dickson LPN Care Management - Chart Review (Chart Reveiw-Patient discharged from ED 07/31/2016); ED Follow-Up Call (Initial Follow Up ) 07/30/2016 10:48 PM EDT - 07/31/2016 1:25 AM EDT [facility] [address] [place] [address] Gomez Toussaint MD Urinary tract infection, site unspecified (Primary Dx) Discharge Disposition: Home or Self Care 07/22/2016 1:15 PM EDT - 07/22/2016 2:43 PM EDT [facility] [address] [place] [address] Mildred Islas MD Tension-type headache, not intractable, unspecified chronicity pattern (Primary Dx) Discharge Disposition: Home or Self Care 12/17/2014 11:15 AM EST Office Visit [facility] [address] [place] [address] Malcolm Herring MD LOM (left otitis media) (Primary Dx); Cervical lymphadenitis 05/17/2014 Abstract SEP [facility] [address] [facility] [address] [facility] [address] Magnolia Lal MA 05/16/2014 4:30 PM EDT Office Visit [facility] [address] [place] [address] Serena Mckeon MD TMJ (dislocation of temporomandibular joint), initial encounter (Primary Dx); Jaw snapping 03/29/2013 4:30 PM EDT Office Visit [facility] [address] [place] [address] Neal Nguyen MD Sinusitis (Primary Dx); AR (allergic rhinitis) 08/17/2011 9:40 AM EDT Office Visit [facility] [address] [place] [address] Neal Nguyen MD Sinusitis (Primary Dx); Need for influenza vaccination 07/17/2011 6:14 PM EDT - 07/17/2011 7:06 PM EDT [facility] [address] [place] [address]. [place] [address] Davion Gilliland, Contusion of right shoulder Discharge Disposition: Home or Self Care 01/20/2001 5:47 AM EST - 01/20/2001 11:59 PM EST Hospital Encounter [facility] RADIOLOGY ED Trae Bright 01/13/2001 4:57 PM EST - 01/13/2001 11:59 PM EST Hospital Encounter [facility] LAB EDG KailaTrae 12/01/2000 7:42 PM EST - 12/01/2000 11:59 PM EST Hospital Encounter [facility] LAB Erich Rosenberg MD 09/24/2000 5:16 PM EST - 09/24/2000 11:59 PM EST Hospital Encounter [facility] LAB Erich Rosenberg MD 07/17/2000 8:59 PM EDT - 07/17/2000 10:00 PM EDT Emergency [facility] EPIC CON UNK Ole Higgins MD 03/22/1999 12:25 PM EDT - 03/22/1999 11:59 PM EDT Hospital Encounter [facility] EPIC CON UNK [facility] Shirley Chinchilla 11/17/1998 12:20 PM EST - [...] muscle Every 90 Days. 1 Each 4 4 Active escitalopram oxalate (LEXAPRO) 10 mg Oral TabletIndications :Major depressive disorder, recurrent episode, mild Take 1 Tablet by mouth daily. 90 Tablet 1 4 Active ibuprofen (ADVIL;MOTRIN) 600 mg Oral TabletIndications :Upper respiratory tract infection, unspecified type Take 1 Tablet by mouth every 8 hours. 20 Tablet 5 Active cefdinir (OMNICEF) 300 mg Oral CapsuleIndication s:Acute otitis media with effusion of left ear Take 1 Capsule by mouth 2 times daily for 10 days. 20 Capsule 5 11/24/19 26 Active Brompheniramine-P seudoeph-DM 2-30-10 mg/5 mL Oral SyrupIndications: Influenza A Take 10 mL by mouth every 4 hours as needed (Cough, Nasal Congestion, Allergies). 240 mL 5 Active Brompheniramine-P seudoeph-DM 2-30-10 mg/5 mL Oral SyrupIndications: Upper respiratory tract infection, unspecified type Take 10 mL by mouth every 4 hours as needed (Cough, Nasal Congestion, Allergies). 240 mL 5 11/14/20 25 Discontinu ed(DELETE- Duplicate) Active Problems Patient Care Coordination No te Formatting of this note migh t be different from the original. HCC audit completed by Gretel Reyes RN on 02/26/2023. Problem Noted Date Diagnosed Date Diet controlled gestational diabetes mellitus (GDM) in third trimester 08/20/2023 Overview (09/27/2023): diabetes education completed 09/08 Growth ultrasounds q 4 wk ordered - scheduled 09/27 Family history of SIDS (sudden synd dorchester) 04/27/2023 Overview (04/27/2023): 01/16/22 baby passed at [...] pursue testing during . Recommend notifying the process controller at of this finding. Additionally, I recommend a follow-up OB US at 32 weeks. Encounter for supervision of normal in first trimester 05/24/2018 01/06/2019 Overview (12/07/2018): MD pt GS: requested, referral placed ANDRÉS by [...] Grandmother Social History Smoking Status as of 11/19/2025 Tobacco Use Types Packs/Day Years Used Date [...] F) 11/14/2025 10:57 AM EST Respiratory Rate 18 05/27/2024 6:46 PM EDT Oxygen Saturation 97% 11/14/2025 10:57 AM EST Inhaled Oxygen Concentration - - Weight 94.3 kg (208 lb) 02/19/2025 10:08 AM EDT Height 165.1 cm (5' 5 ) 11/14/2025 10:57 AM EST Body Mass Index 34.61 02/19/2025 10:08 AM EDT Plan of Treatment Not on file Procedures Procedure Name Priority Date/Time Associated Diagnosis Comments POCT CEPHEID SARS COV-2 RNA + FLU A/B + RSV Routine 11/14/2025 11:40 AM EST Influenza A [id number] Routine 11/07/2024 11:09 AM EST Acute cough [...] 04/30/2023 3:34 PM EDT First trimester screening CORROSION CONTROL SPECIALIST CYTOLOGY REQUEST (PAP ONLY) Routine 04/27/2023 3:39 PM EDT Supervision of other normal , antepartum [facility] CORROSION CONTROL SPECIALIST CYTOLOGY ORDER Routine 04/27/2023 3:39 PM EDT [...] 04/06/2019 9:37 AM EDT Well adult exam CORROSION CONTROL SPECIALIST CYTOLOGY REQUEST (PAP ONLY) Routine 02/21/2019 12:00 [...] SCANNED RADIOLOGY REPORT 05/24/2018 3:33 PM EDT CORROSION CONTROL SPECIALIST CYTOLOGY REQUEST (PAP ONLY) Routine 05/24/2018 2:13 PM EDT Encounter for supervision of other normal in first trimester [facility] CORROSION CONTROL SPECIALIST CYTOLOGY ORDER Routine 05/24/2018 2:13 PM EDT [...] 07/17/2011 6:47 PM EDT Results * (ABNORMAL) POCT CEPHEID SARS COV-2 RNA + FLU A/B + RSV (11/14/2025 11:40 AM EST) [facility] SARS COV-2 RNA Negative Negative, Invalid SEP OFFICE INFLUENZA A Positive(A) Negative, Invalid SEP OFFICE INFLUENZA B Negative Negative, Invalid SEP OFFICE RSV Negative Negative, Invalid SEP OFFICE Lot Number [id number] SEP OFFICE Expiration Date 12/23/25 SEP OFFICE SeriAl # SEP OFFICE Control Line SEP OFFICE 11/14/2025 11:4 0 AM EST Shagufta Wyman MD POINT OF CARE TEST ORDERABLE S Final Result SEP OFFICE * (ABNORMAL) [id number] (11/07/2024 11:09 AM EST) Pathologist [facility] CORONAVIRUS [id number] Not Detected Not Detected 11/07/2024 4:11 PM EST [facility] Influenza A DNA Not Detected Not Detected 11/07 4:11 PM EST [facility] Influenza B DNA Not Detected Not Detected 11/07 4:11 PM EST [facility] RSV DNA Detected(A) Not Detected 11/07/2024 4:11 PM EST [facility] Swab BOTH ANTERIOR NARES / Unknown 11/07/2024 11:09 AM EST 11/07/2024 11:09 AM EST Narrative [facility] - 11/07/2024 4:11 PM EST This test [...] management decisions. Test is performed on the [employer] GeneXpert platform under the FDA's Emergency Use Authorization (EUA). CepAncancoid Fact Sheet for Providers and Patients: Cepheid Fact Sheet for Providers: https://www.fda.gov/media/651819/download Cepheid Fact Sheet for Patients: https://www.fda.gov/media/239841/download Adwoa Colon DIRECTOR ORACLE MICROBIOLOGY - GENERAL OR DERABLES Final Result Performing Organization Address City/[facility]/ZIP Co de Phone Number [facility] [employer] [address] [place] [address] , [place] [address] * POCT URINE TELCOR (09/11/2024 8:45 AM EDT) Only the most recent of4 resultswithin the time period is included. Preg Test, Ur Negative 09/11/2024 8:52 AM EDT [facility] Urine URINE SPECIMEN COLLECTION / Unknown 09/11/2024 8:45 AM EDT 09/11/2024 8:52 AM EDT us Lab Test POINT OF CARE TEST ORDERABLES Fi nal Result [address] [phone] * POCT INFLUENZA A/B (05/27/2024 6:55 PM [...] TEST ORDERABLES Final Result Performing Organization Address [facility] de Phone Number SEP OFFICE * POCT SARS-COV-2 RNA SEP (05/27/2024 6:49 PM EDT) Pathologist [facility] COV19 RNA POCT Negative Negative 05/27/2024 7:04 PM EDT [facility] Swab NASAL / Unknown 05/27/2024 6 :49 PM EDT 05/27/2024 7:04 PM EDT Narrative [facility] - 05/27/2024 7:04 PM EDT The ID NOW is an isothermal nucleic acid amplification assay used to detect nucleic acid from SARS-CoV-2 viral RNA and is intended for use under [facility] Emergency Use Authorization only. Negative results do [...] management. [place] ID NOW Provider Fact Sheet: https://www.fda.gov/media/480824/download [facility] ID NOW Patient Fact Sheet: https://www.fda.gov/media/148627/download Shameka Cruz MD POINT OF CARE TEST ORDERABLES Final Result Performing Organization Address City/[facility] Co de Phone Number [facility] [address] [place] [address] * .GLUCOSE 2 HR (PREG 2H GTT) (01/25/2024 1:10 PM EST) Gluc 2 Hr (Preg 2H GTT) 85 <153 (IADPSG/AD A) mg/dL 01/25/2024 8:16 PM EST [facility] [employer] Blood VENOUS BLOOD / Unknown Venipuncture / Unknown 01/25/2024 1:10 PM EST 01/25/2024 1:10 PM EST Kayla Conti DO CHEMISTRY ORDERABLES Fi nal Result Performing Organization Address [facility] Healthcare/[facility] Co de Phone Number [facility] [address] [place] [address] , [place] [address] * .GLUCOSE 1 HR (PREG 2H GTT) (01/25/2024 12:07 PM EST) Pathologist [facility] Gluc 1 Hr (Preg 2H GTT) 88 <180 (IADPSG/AD A) mg/dL 01/25/2024 9:13 PM EST [facility] [employer] Blood VENOUS BLOOD / Unknown Venipuncture / Unknown 01/25/2024 12:07 PM EST 01/25/2024 12:07 PM EST Kayla Conti DO CHEMISTRY ORDERABLES Fi nal Result Performing Organization Address [facility] de Phone Number [facility] [address] [place] [address] , [place] [address] * .GLUCOSE FASTING (PREG 2H GTT) (01/25/2024 11:07 AM EST) Gluc Fasting (Preg 2H GTT) 90 <92 (IADPSG/AD A) mg/dL 01/25/2024 3:16 PM EST [facility] [employer] Blood VENOUS BLOOD / Unknown Venipuncture / Unknown 01/25/2024 11:07 AM EST 01/25/2024 11:07 AM EST Kayla Conti DO CHEMISTRY ORDERABLES Fi nal Result Performing Organization Address City/[facility]/ZIP Co de Phone Number [facility] [address] [place] [address] , [place] [address] * POC HGB NON INVASIVE (12/07/2023 9:04 AM EST) HGB [facility] 13.6 [facility] Blood 12/07/2023 9:04 AM EST Bebeto Covington MD POINT OF CARE TEST ORDERA BLES Final Result [facility] * Spinal Block by Anesthesia (10/20/2023 1:27 AM EST) Narrative [facility] - 10/20/2023 1:27 AM EST Roosevelt Fonseca CRNA 10/20/2023 1:30 AM Spinal Block by Anesthesia Procedure Date/Time: 10/20/2023 1:27 AM CUTTER OPERATOR ASBESTOS SHINGLE: Roosevelt Fonseca CRNA Performed by: CUTTER OPERATOR ASBESTOS SHINGLE Patient Location: OB Reason for Block: Primary [...] Re sult - Final Performing Organization Address [facility] [place] [address] * HIV AG/AB (10/20/2023 1:01 AM EST) Only the most recent of7 resultswithin the time period is included. HIV Ag/AB Non-Reactiv e Non-Reacti ve 10/20/2023 7:06 AM EST [facility] Blood VENOUS BLOOD / Unknown Venipuncture / Unknown 10/20/2023 1:01 AM EST 10/20/2023 1:06 AM EST us Carmenza Gerber MD IMMUNOLOGY ORDERABLES Final Res ult Performing Organization Address [facility] de Phone Number [facility] [address] [facility], [place] [address] * BB HISTORY CHECK (10/20/2023 1:01 AM EST) Only the most recent of6 resultswithin the time period is included. Pathologist [facility] BB HISTORY CHECK (1) Previous History OK 10/20/2023 1:07 AM EST [facility] Blood VENOUS BLOOD / Unknown Venipuncture / Unknown 10/20/2023 1:01 AM EST 10/20/2023 1:06 AM EST us Carmenza Gerber MD BLOOD BANK ORDERABLES Final Res ult Performing Organization Address [facility] Co de Phone Number [facility] [address] [place] [address] * SYPHILIS SCREEN WITH REFLEX RPR QUANT (10/20/2023 1:01 AM EST) Only the most recent of7 resultswithin the time period is included. Trep Ab Index 0.05 <=0.99 Index Value 10/20/2023 7:05 AM EST [facility] Comment: < 1.00 - Non-Reactive >=1.00 - Reactive NOTE: All reactive results will be reflexed to Quantitative Non-Treponemal(RPR)test. Blood VENOUS BLOOD / Unknown Venipuncture / Unknown 10/20/2023 1:01 AM EST 10/20/2023 1:06 AM EST us Carmenza Gerber MD CHEMISTRY ORDERABLES Final Resu lt [facility] [address] [facility] , [address] [place] [id number] * (ABNORMAL) CBC (10/20/2023 1:01 AM EST) Only the most recent of2 resultswithin the time period is included. WBC 14.4(H) 3.7 - 10.3 x10(3)/mcL 10/20/2023 1:12 AM EST [facility] RBC 4.51 3.90 - 5.20 x10(6)/mcL 10/20/2023 1:12 AM EST [facility] Hgb 13.5 11.2 - 15.7 g/dL 10/20/2023 1:12 AM EST [facility] Hct 39.6 34.0 - 45.0 % 10/20/2023 1:12 AM EST [facility] MCV 87.8 80.0 - 100.0 fL 10/20/2023 1:12 AM EST [facility] MCH 29.9 26.0 - 34.0 pg 10/20/2023 1:12 AM EST [facility] MCHC 34.1 30.7 - 35.5 g/dL 10/20/2023 1:12 AM EST [facility] RDW 13.2 <=14.9 % 10/20/2023 1:12 AM EST [facility] Platelet 199 155 - 369 x10(3)/mcL 10/20/2023 1:12 AM EST [facility] MPV 11.6 8.8 - 12.5 fL 10/20/2023 1:12 AM EST [facility] Blood VENOUS BLOOD / Unknown Venipuncture / Unknown 10/20/2023 1:01 AM EST 10/20/2023 1:06 AM EST us Carmenza Gerber MD HEMATOLOGY ORDERABLES Final Res ult Performing Organization Address City/[facility] Co de Phone Number [facility] [address] [facility] , [place] [address] * HIGH RISK HCV ANTIBODY REFLEX (10/20/2023 1:01 AM EST) Only the most recent of3 resultswithin the time period is included. Hep C Ab Non-Reactiv e Non-Reacti ve 10/20/2023 7:05 AM EST [facility] Blood VENOUS BLOOD / Unknown Venipuncture / Unknown 10/20/2023 1:01 AM EST 10/20/2023 1:06 AM EST us Carmenza Gerber MD IMMUNOLOGY ORDERABLES Final Res ult Performing Organization Address City/[facility] Co de Phone Number [facility] [address] [facility] , [place] [address] * DRUGS OF ABUSE WITH REFLEX TO [...] Cutoff 2 ng/mL 10/20/2023 1:59 AM EST [facility] Methadone and Metabolite Absent Cutoff 300 ng/mL 10/20/2023 1:59 AM EST [facility] Opiate Absent Cutoff 300 ng/mL 10/20/2023 1:59 AM EST [facility] Oxycodone Lvl Absent Cutoff 100 ng/mL 10/20/2023 1:59 AM EST [facility] Urine Creatinine 39.5 mg/dL 10/20/20 1:59 AM EST [facility] Comment: Greater than 20: Consistent with valid sample Greater than 2 but less than 20: Possible dilution Less than 2: Questionable valid sample Urine URINE SPECIMEN COLLECTION / Unknown 10/20/2023 1:01 AM EST 10/20/2023 1:20 AM EST Narrative [facility] - 10/20/2023 1:59 AM EST These drug [...] Carmenza Gerber MD URINE ORDERABLES Final Result [facility] [address] [facility] , [address] [place] [id number] * [facility] (10/20/2023 1:01 AM EST) Only the most recent of7 resultswithin the time period is included. Pathologist [facility] Int B POS 10/20/2023 1:5 0 AM EST [facility] Blood VENOUS BLOOD / Unknown Venipuncture / Unknown 10/20/2023 1:01 AM EST 10/20/2023 1:06 AM EST us Carmenza Gerber MD BLOOD BANK ORDERABLES Final Res ult [facility] [address] [place] [address] * ANTIBODY SCREEN IGG (10/20/2023 1:01 AM EST) Only the most recent of7 resultswithin the time period is included. Pathologist [facility] ABSC IgG Int Negative 10/20/2023 1:50 AM EST [facility] Blood VENOUS BLOOD / Unknown Venipuncture / Unknown 10/20/2023 1:01 AM EST 10/20/2023 1:06 AM EST us Carmenza Gerber MD BLOOD BANK ORDERABLES Final Res ult Performing Organization Address [facility] Co de Phone Number [facility] [place] [address] * (ABNORMAL) COMPREHENSIVE METABOLIC PANEL (10/20/2023 1:01 AM EST) Only the most recent of5 resultswithin the time period is included. [facility] Sodium 136 136 - 145 mmol/L 10/20/2023 [...] 10/20/2023 2:21 AM EST [facility] Albumin 3.9 3.5 - 5.2 gm/dL 10/20/2023 2:21 AM EST [facility] Total Protein 7.0 6.4 - 8.3 gm/dL 10/20/2023 2:21 AM EST [facility] Bili Total 0.4 0.2 - 1.3 mg/dL 10/20/2023 2:21 AM EST [facility] ALT 12 <=41 U/L 10/20/2023 2:21 AM EST [facility] AST 18 <=40 U/L 10/20/2023 2:21 AM EST [facility] Alk Phos 284(H) 36 - 123 U/L 10/20/2023 2:21 AM EST [facility] eGFR (CKD-EPIcr 2020) 137 >=60 mL/min/1.7 3 m2 10/20/2023 2:21 AM EST [facility] Comment:Estimated GFR was ca lculated using the CKD-EPIcr (2020) equation refit without race. The equation is recommended by the National Kidney Foundation - [place] [employer] of Nephrology Task Force. Blood VENOUS BLOOD / Unknown Venipuncture / Unknown 10/20/2023 1:01 AM EST 10/20/2023 1:06 AM EST us Carmenza Gerber MD CHEMISTRY ORDERABLES Final Resu lt [facility] [address] [facility] [address] [place] [address] [facility] [address] [place], [place] [id number] * SEP URINALYSIS POC (10/18/2023 9:28 AM EST) Only the most recent of23 resultswithin the time period is included. UA Color POC Yellow Color 10/18/2023 9:30 AM EST [facility] UA Appear POC Clear Clear 10/18/2023 9:30 AM EST [facility] UA Gluc POC Negative Negative mg/dL 10/18/2023 9:30 AM EST [facility] UA Bili POC Negative Negative 10/18/2023 9:30 AM EST [facility] UA Ketones POC Negative Negative mg/dL 10/18/2023 9:30 AM EST [facility] UA SG POC 1.010 1.001 - 1.035 no units 10/18/2023 9:30 AM EST [facility] UA Blood POC Negative Negative 10/18/2023 9:30 AM EST [facility] UA pH POC 6.0 5.0 - 8.0 pH 10/18/2023 9:30 AM EST [facility] UA Protein POC Negative Negative mg/dL 10/18/2023 9:30 AM EST [facility] UA Urobilinogen POC 0.2 0.2, 1.0 10/18/2023 9:30 AM EST [facility] UA Nitrite POC Negative Negative 10/18/2023 9:30 AM EST [facility] UA Leuk Est POC Negative Negative 9:30 AM EST [facility] Urine URINE SPECIMEN COLLECTION / Unknown 10/18/2023 9:28 AM EST 10/18/2023 9:30 AM EST us Amarilis Gill DO POINT OF CARE TEST ORDER ANILA Final Result Performing Organization Address City/[facility]/ZIP Co de Phone Number [facility] [address] [place] [address] * POCT NON STRESS TEST (10/12/2023 4:00 PM EST) Only the most recent of2 resultswithin the time period is included. 10/12/2023 4:00 PM EST [facility] SEP OFFICE - 10/12/2023 4:20 PM EST NST reactive and reassuring Baseline: 125 bpm Accels: Present Decels: Absent Moderate variability [place]: no ctx's or irritability noted us Jenni Scanlon DIRECTOR ORACLE POINT OF CARE TEST ORD ERABLES Final Result [facility] * PN US OB 14+WKS, LOW RISK ANATOMY OR NEW INDICATION SINGLE GEST (10/05/2023 12:51 PM EST) Only the most recent of2 resultswithin the time period is included. Anatomical Region Laterality Modality Pelvis Ultrasound 10/05/2023 11:5 9 AM EST Kayla Enamorado Gallito DO IMG ORDERABLE S Final Result * STREP B DNA (09/27/2023 2:21 PM EST) Only the most recent of3 resultswithin the time period is included. Strep B DNA Not Detected Not Detected 11:40 AM EST [facility] RECTUM AND VAGINA, CS / Unknown 09/27/2023 2:21 PM EST 09/27/2023 2:21 PM EST Narrative [facility] - 09/29/2023 11:40 AM EST TEST INFORMATION: This qualitative assay utilizes molecular amplification to detect a portion of the Streptococcus agalactiae genome and is intended for a screen of antepartum women in 35-37 weeks gestation. A negative result does not rule out the presence the Group B Strep in concentrations below the limit of detection for the assay. Yolie Rasmussen MD MICROBIOLOGY - [facility] ORDERABLES Final Result [facility] [address] [facility] , [place] [address] * CHLAMYDIA/GC BY TMA (09/27/2023 2:21 PM EST) Only the most recent of4 resultswithin the time period is included. Chlamydia trachomatis Not Detected Not Detected 09/28/2023 4:02 AM EST [facility] Neisseria gonorrhoeae Not Detected Not Detected 09/28/2023 4:02 AM EST [facility] SPECIMEN FROM UTERINE CERVIX / Unknown 09/27/2023 2:21 PM EST 09/27/2023 2:21 PM EST Narrative [facility] - 09/28/2023 4:02 AM EST Testing methodology is efficiency miner mediated amplification (TMA) using the Aptima Combo 2 assay from [employer]. A negative result does not completely rule [...] request. Yolie Rasmussen MD MICROBIOLOGY - [facility] AL ORDERABLES Final Result Performing Organization Address [facility] Co de Phone Number [facility] [address] [place] [address], [place] [address] * .GLUCOSE 3 HR (PREG 3H JAVI) (08/05/2023 12:26 PM EDT) Only the most recent of2 resultswithin the time period is included. Gluc 3 Hr (Preg 3H GTT) 139 <140 mg/dL 08/05/2023 12:49 PM EDT [facility] Blood VENOUS BLOOD / Unknown Venipuncture / Unknown 08/05/2023 12:26 PM EDT 08/05/2023 12:26 PM EDT Narrative [facility] - 08/05/2023 12:49 PM EDT The Pearson and Coustan conversion is used to establish PLP reference intervals. Other criteria, including intervals established by the National Diabetes Data Group (NDDG), may be used as an alternative. Amarilis Gill DO CHEMISTRY ORDERABLES Fin al Result Performing Organization Address City/[facility] Co de Phone Number [facility] [address] [place] [address] * .GLUCOSE 2 HR (PREG 3H JAVI) (08/05/2023 11:28 AM EDT) Only the most recent of2 resultswithin the time period is included. Gluc 2 Hr (Preg 3H GTT) 140 <155 mg/dL 08/05/2023 12:00 PM EDT [facility] Blood VENOUS BLOOD / Unknown Venipuncture / Unknown 08/05/2023 11:28 AM EDT 08/05/2023 11:28 AM EDT Narrative [facility] - 08/05/2023 12:00 PM EDT The Pearson and Coustan conversion is used to establish PLP reference intervals. Other criteria, including intervals established by the National Diabetes Data Group (NDDG), may be used as an alternative. [facility] CHEMISTRY ORDERABLES Fin al Result Performing Organization Address [facility] de Phone Number [facility] [address] [place] [address] * (ABNORMAL) .GLUCOSE 1 HR (PREG JAVI) (08/05/2023 10:28 AM EDT) Only the most recent of2 resultswithin the time period is included. Gluc 1 Hr (Preg 3H GTT) 211(H) <180 mg/dL 08/05/2023 11:02 AM EDT [facility] Blood VENOUS BLOOD / Unknown Venipuncture / Unknown 08/05/2023 10:28 AM EDT 08/05/2023 10:28 AM EDT Narrative [facility] - 08/05/2023 11:02 AM EDT The Pearson and Coustan conversion is used to establish PLP reference intervals. Other criteria, including intervals established by the National Diabetes Data Group (NDDG), may be used as an alternative. Amarilis Enamorado [facility] CHEMISTRY ORDERABLES Fin al Result Performing Organization Address [facility] de Phone Number [facility] [address] [place] [address] * (ABNORMAL) .GLUCOSE FASTING (PREG 3H JAVI) (08/05/2023 9:23 AM EDT) Only the most recent of2 resultswithin the time period is included. Gluc Base (Preg 3H Javi) 102(H) <95 mg/dL 08/05/2023 10:41 AM EDT [facility] Blood VENOUS BLOOD / Unknown Venipuncture / Unknown 08/05/2023 9:23 AM EDT 08/05/2023 9:23 AM EDT Narrative [facility] - 08/05/2023 10:41 AM EDT The Pearson and Coustan conversion is used to establish PLP reference intervals. Other criteria, including intervals established by the National Diabetes Data Group (NDDG), may be used as an alternative. us Amarilis Gill DO CHEMISTRY ORDERABLES Fin al Result Performing Organization Address [facility] de Phone Number [facility] [address] [place] [address] * (ABNORMAL) PREG GLUCOSE SCREEN (08/03/2023 9:29 AM EDT) Only the most recent of3 resultswithin the time period is included. Pathologist [facility] Preg Screen 192(H) <130 mg/dL 08/03/2023 2:46 PM EDT [facility] [facility] Blood VENOUS BLOOD / Unknown Venipuncture / Unknown 08/03/2023 9:29 AM EDT 08/03/2023 9:29 AM EDT Narrative [facility] - 08/03/2023 2:46 PM EDT Choice of screening threshold may vary from 130 mg/dL to 140 mg/dL. ACOG recommends 3 Hr diagnostic oral glucose tolerance test following positive screen. Amarilis Gill DO CHEMISTRY ORDERABLES Fin al Result Performing Organization Address [facility]/ZIP Co de Phone Number [facility] [address] [facility] , [place] [address] * (ABNORMAL) CBC WITH DIFF (08/03/2023 9:29 AM EDT) Only the most recent of16 resultswithin the time period is included. WBC 10.3 3.7 - 10.3 x10(3)/mcL 08/03/2023 2:03 PM EDT [facility] RBC 3.85(L) 3.90 - 5.20 x10(6)/mcL 08/03/2023 2:03 PM EDT [facility] Hgb 11.4 11.2 - 15.7 g/dL 08/03/2023 [...] 2:03 PM EDT [facility] Branch Percent 4.4 % 08/03/2023 2:03 PM EDT [facility] Eos Percent 1.6 % 08/03/2023 2:03 PM EDT [facility] Baso Percent 0.3 % 08/03/2023 2:03 PM EDT [facility] Neut # 7.7(H) 1.6 - 6.1 x10(3)/[facility] 08/03/2023 2:03 PM EDT [facility] Comment:Neutrophils equals s egs plus bands IMMGRAN# 0.1 0.0 - 0.1 x10(3)/[facility] 08/03/2023 2:03 PM EDT [facility] Comment:Automated count of m etamyelocytes, myelocytes and promyelocytes. An absolute IG <0.1 is reported as 0.0. Lymph # 1.9 1.2 - 3.9 x10(3)/[facility] 08/03/2023 2:03 PM EDT [facility] Branch # 0.5 0.3 - 0.9 x10(3)/[facility] 08/03/2023 2:03 PM EDT [facility] Eos# 0.2 0.0 - 0.5 x10(3)/[facility] 08/03/2023 2:03 PM EDT [facility] Baso # 0.0 0.0 - 0.1 x10(3)/[facility] 08/03/2023 2:03 PM EDT [facility] Blood VENOUS BLOOD / Unknown Venipuncture / Unknown 08/03/2023 9:29 AM EDT 08/03/2023 9:29 AM EDT Amarilis Gill DO HEMATOLOGY ORDERABLES Fi nal Result [facility] [address] [facility] , [place] [address] * URINE CULTURE (NO STAIN) (07/09/2023 11:35 AM EDT) Only the most recent of8 resultswithin the time period is included. Culture Multiple bacterial species isolated from urine consistent with urogenital commensal organisms. 07/11/2023 4:36 AM EDT [facility] Urine URINE SPECIMEN COLLECTION, CLEAN CATCH / Unknown 07/09/2023 11:35 AM EDT 07/09/2023 11:35 AM EDT us Amarilis Gill DO MICROBIOLOGY - GENERAL O RDERABLES Final Result Performing Organization Address City/[facility]/ZIP Co de Phone Number [facility] [employer] [facility] [address] [facility] , [place] [address] * PN US OB DETAIL ANATOMY SINGLE OR FIRST GESTATION (06/23/2023 12:30 PM EDT) Only the most recent of2 resultswithin the time period is included. Anatomical Region Laterality Modality Pelvis Ultrasound 06/23/2023 11:1 1 AM EDT us Isela Perez CNM IMG ORDERABLES Fin al Result * HCV ANTIBODY SCREEN W/ REFLEX (04/30/2023 3:34 PM EDT) Hep C Ab Non-Reactiv e Non-Reacti ve 05/01/2023 12:03 AM EDT [facility] Blood VENOUS BLOOD / Unknown Venipuncture / Unknown 04/30/2023 3:34 PM EDT 04/30/2023 3:34 PM EDT us Lina Finn DIRECTOR ORACLE HEMATOLOGY ORDERABLES Fin al Result Performing Organization Address [facility] Co de Phone Number [facility] [employer] [facility] [address] [facility] , [place] [address] * RUBELLA ANTIBODY IGG (04/30/2023 3:34 PM EDT) Only the most recent of4 resultswithin the time period is included. Rubella IgG 2.040 Index Value 05/01/2023 6:12 AM EDT [facility] Comment: < 0.90 - Negative No significant [...] EDT 04/30/2023 3:34 PM EDT Lina Finn DIRECTOR ORACLE IMMUNOLOGY ORDERABLES Fin al Result Performing Organization Address [facility] Co de Phone Number [facility] [employer] [address] , [place] [address] * HEPATITIS B SURFACE ANTIGEN (04/30/2023 3:34 PM EDT) Only the most recent of4 resultswithin the time period is included. Hep Bs Ag Non-Reactiv e Non-Reacti ve 05/01/2023 12:05 AM EDT [facility] [employer] Blood VENOUS BLOOD / Unknown Venipuncture / Unknown 04/30/2023 3:34 PM EDT 04/30/2023 3:34 PM EDT Lina Finn APRN CHEMISTRY ORDERABLES Tatianna l Result Performing Organization Address [facility] Co de Phone Number [facility] [employer] , [place] [address] * CORROSION CONTROL SPECIALIST CYTOLOGY REQUEST (PAP ONLY) (04/27/2023 3:39 PM EDT) Only the most recent of3 resultswithin the time period is included. CASE REPORT Gynecologic Cytology Report Case: [id number] Authorizing Provider: Isela Perez CNM Collected: 04/27/2023 1539 Ordering Location: [facility] Received: 04/27/2023 1539 First Screen: Anika Tolentino CT Specimen: LIQUID-BASED PAP - CERVICAL/ENDOCERV ICAL, Cervix, Endocervical 04/28/2023 1:18 PM EDT [facility] PAP FINAL DIAGNOSIS Negative for intraepithelial lesion or malignancy 04/28/2023 1:18 PM EDT [facility] at 1318 EDT MICROSCOPIC DESCRIPTION Microscopic examination is performed and the findings corroborate the diagnosis. 04/28/2023 1:18 PM EDT [facility] PAP SMEAR ADEQUACY Satisfactory for evaluation 04/28/2023 1:18 PM EDT [facility] ENDOCERVICAL T-ZONE Transformation zone absent. This is not unusual in a woman 04/28/2023 1:18 PM EDT [facility] EMBEDDED IMAGES 1:18 PM EDT [facility] PAP DISCLAIMER The Pap Smear is a screening test that aids in the detection of cervical cancer and cancer precursors. Both false positive and false negative results can occur. The test should be used at regular intervals, and positive results should be confirmed before definitive therapy. Processed using the [employer] Concrete Inspector Automated cytology screening device ([employer]). 04/28/2023 1:18 PM EDT [facility] PAP OTHER FINDINGS Many acute inflammatory cells noted. 04/28/2023 1:18 PM EDT [facility] Thin Prep ENDOCERVICAL STRUCTURE / Unknown 04/27/2023 3:39 PM EDT 04/27/2023 3:39 PM EDT Isela Perez CNM CYTOLOGY ORDERABLES Final Re sult [facility] [address] [place] [id number] * TRICHOMONAS VAGINALIS BY TMA (PAP PANEL) (04/27/2023 3:39 PM EDT) Trichomonas vaginalis by TMA Not Detected Not Detected 04/28/2023 3:05 PM EDT PREFERRED [employer] Thin Prep SPECIMEN FROM UTERINE CERVIX / Unknown 04/27/2023 3:39 PM EDT 04/27/2023 3:39 PM EDT Narrative [facility]REFERRED [employer] - 04/28/2023 3:05 PM EDT Test methodology is efficiency miner mediated amplification (TMA) using the Aptima Trichomonas vaginalis assay from [employer]. A negative result does not completely rule [...] on these sample types were determined by [facility]. Isela Perez CNM MICROBIOLOGY - GENERAL ORDER ANILA Final Result [facility]REFERRED [employer] [address] [facility] , [place] [address] * GC CHLAMYDIA THIN PREP (04/27/2023 3:39 PM EDT) Only the most recent of2 resultswithin the time period is included. Chlamydia trachomatis Not Detected Not Detected 04/28/2023 2:45 PM EDT [employer] [employer] Neisseria gonorrhoeae Not Detected Not Detected 04/28/2023 2:45 PM EDT [facility] Thin Prep SPECIMEN FROM UTERINE CERVIX / Unknown 04/27/2023 3:39 PM EDT 04/27/2023 3:39 PM EDT Narrative [facility]REFERRED [employer] - 04/28/2023 2:45 PM EDT Testing methodology is efficiency miner mediated amplification (TMA) using the Aptima Combo 2 assay from [employer]. A negative result does not completely rule [...] MICROBIOLOGY - GENERAL ORDER ANILA Final Result [facility] [employer] [address] [place] [address] , [address] [place] [id number] * PN US OB < 14 WEEKS SINGLE OR FIRST GESTATION (04/20/2023 11:36 AM EDT) Anatomical Region Laterality Modality Pelvis Ultrasound 04/20/2023 11:0 3 AM EDT us Lina Finn DIRECTOR ORACLE IMG ORDERABLES Final Result * (ABNORMAL) POCT URINE (04/14/2023 11:30 AM EDT) Only the most recent of2 resultswithin the time period is included. Preg Test, Ur positive POS/NEG SEP OFFICE Lot Number [id number] SEP OFFICE Expiration Date 03 21 24 SEP OFFICE SeriAl # SEP OFFICE Control Line Yes YES/NO SEP OFFICE 04/14/2023 11:3 0 AM EDT us Lina Finn APRN POINT OF CARE TEST ORDERA BLES Final Result Performing Organization Address [facility] de Phone Number SEP OFFICE * (ABNORMAL) POCT KISHAN FLU+SARS ANTIGEN (11/02/2022 11:09 AM EST) SARS Antigen Positive(A) Negative SEP OFFICE Influenza A Antigen Negative Negative SEP OFFICE Influenza B Antigen Negative Negative SEP OFFICE Lot Number [id number] SEP OFFICE Expiration Date 09/11/2023 SEP OFFICE SeriAl # SEP OFFICE Control Line Yes YES/NO SEP OFFICE 11/02/2022 11:0 9 AM EST us Serena Mckeon MD POINT OF CARE TEST [...] AM CLINICAL HISTORY: M54.42-Lumbago with sciatica, left bect-SCX-77-CM COMPARISON: None. PROCEDURE COMMENTS: Minimum of 3 views lumbar spine per protocol. FINDINGS: Vertebral body height and alignment anatomic. No acute fracture deformity. No destructive lesion. Intervertebral spaces relatively well maintained for age. Procedure Note Emily Jung MD - 07/21/2022 AP AND LATERAL LUMBAR SPINE, 07/21/2022 11:31 AM CLINICAL HISTORY: M54.42-Lumbago with sciatica, left dscv-WOM-18-CM COMPARISON: None. PROCEDURE COMMENTS: Minimum of 3 [...] 232-1,245 pg/mL 01/30/2022 8:38 PM EST PREFERRED LAB [facility] Folate 11.10 >=4.80 ng/mL 01/30/2022 8:38 PM EST [facility]REFERRED [facility] [employer] Blood VENOUS BLOOD / Unknown Venipuncture / Unknown 01/30/2022 11:29 AM EST 01/30/2022 11:29 AM EST Narrative [facility] - 01/30/2022 8:38 PM EST Ingestion of amanda doses of biotin (>5 mg/day) taken within 8 hours of drawing blood sample can interfere with this immunoassay test. [facility] CHEMISTRY ORDERABLES Tatianna l Result Performing Organization Address [facility] de Phone Number [facility] [address] [place] [address] , [place] [phone] * (ABNORMAL) VITAMIN D 25 HYDROXY (01/30/2022 11:29 AM EST) Only the most recent of2 resultswithin the time period is included. Vit D 25 OH 13.9(L) 30.0 - 150.0 ng/mL 01/30/2022 8:37 PM EST [facility] Comment: Preferred: >= 30 ng/mL Insufficient: 21-29 ng/mL Deficient <= 20 ng/mL Possible Toxicity: >150 ng/mL Samples should not be taken from patients receiving therapy with high biotin doses (i.e. > 5 mg/day) until at least 8 hours following the last biotin administration. Blood VENOUS BLOOD / Unknown Venipuncture / Unknown 01/30/2022 11:29 AM EST 01/30/2022 11:29 AM EST Adwoa Vicente GrubbsColonHannibal [facility] HospitalN CHEMISTRY ORDERABLES Tatianna l Result Performing Organization Address [facility] Phone Number [facility] [address] [place] [address] , [place] [address] * THYROID STIMULATING HORMONE (01/30/2022 11:29 AM EST) Only the most recent of2 resultswithin the time period is included. TSH 1.740 0.270 - 4.200 mcIU/mL 01/30/2022 8:12 PM EST [facility] Blood VENOUS BLOOD / Unknown Venipuncture / Unknown 01/30/2022 11:29 AM EST 01/30/2022 11:29 AM EST Narrative [facility] - 01/30/2022 8:12 PM EST Ingestion of amanda doses of biotin (>5 mg/day) taken within 8 hours of drawing blood sample can interfere with this immunoassay test. Adwoasumaya [employer] DIRECTOR ORACLE CHEMISTRY ORDERABLES Tatianna l Result Performing Organization Address [facility] de Phone Number [facility] [address] , [place] [address] * T4, FREE (THYROXINE) (01/30/2022 11:29 AM EST) Free T4 1.19 0.80 - 1.80 ng/dL 01/30/2022 8:12 PM EST [facility] Blood VENOUS BLOOD / Unknown Venipuncture / Unknown 01/30/2022 11:29 AM EST 01/30/2022 11:29 AM EST Narrative [facility] - 01/30/2022 8:12 PM EST Ingestion of amanda doses of biotin (>5 mg/day) taken within 8 hours of drawing blood sample can interfere with this immunoassay test. Adwoa Bolandx DIRECTOR ORACLE CHEMISTRY ORDERABLES Tatianna l Result Performing Organization Address [facility] Phone Number [facility] [address] [facility] , [place] [address] * (ABNORMAL) LIPID SCREEN (01/30/2022 11:29 AM EST) Only the most recent of2 resultswithin the time period is included. Cholesterol 195 <200 mg/dL 01/30/2022 8:12 PM EST [facility] Comment: < 200 Desirable 200 - 239 Borderline High >= 240 High Triglyceride 77 <150 mg/dL 01/30/2022 8:12 PM EST [facility] Comment: < 150 Normal 150 - 199 Borderline High 200 - 499 High >= 500 Very High HDL 53 >=40 mg/dL 01/30/2022 8:12 PM EST [facility] Comment: > 60 Optimal 40 - 60 Acceptable < 40 Low LDL Calculated 128(H) <100 mg/dL 01/30/2022 8:12 PM EST [facility] Comment: < 100 Optimal 100 - 129 Near or above optimal 130 - 159 Borderline High 160 - 189 High >= 190 Very High Non-HDL-C Calculated 142(H) <=129 mg/dL 01/30/2022 8:12 PM EST [facility] Comment: <130 Desirable 130-159 Above Desirable 160-189 Borderline High 190-219 High >= 220 Very High Fasting Specimen? Yes None 022 8:12 PM EST [facility] Blood VENOUS BLOOD / Unknown Venipuncture / Unknown 01/30/2022 11:29 AM EST 01/30/2022 11:29 AM EST us Adwoa Colon DIRECTOR ORACLE CHEMISTRY ORDERABLES Tatianna loya Result [facility] [employer] [address] [facility], [place] [address] [facility] [address] [place] [address] * Spinal Block by Anesthesia (08/01/2021 1:57 PM EDT) Narrative [facility] - 08/01/2021 1:57 PM EDT Sabina Tavarez CRNA 08/01/2021 2:00 PM Spinal Block by Anesthesia Procedure Date/Time: 08/01/2021 1:35 PM Anesthesiologist: Sha Stanley MD CUTTER OPERATOR ASBESTOS SHINGLE: Sabina Tavarez CRNA Performed by: CUTTER OPERATOR ASBESTOS SHINGLE Patient Location: [place] Reason for Block: At [...] ORDERABLES Final Resu lt Performing Organization Address [facility] Co de Phone Number [facility] [address] [place] [address] * INTRAOP AIRWAY PLACEMENT (08/01/2021 1:49 PM EDT) Narrative [facility] - 08/01/2021 1:49 PM EDT Sabina Tavarez, CUTTER OPERATOR ASBESTOS SHINGLE 08/01/2021 1:50 PM Intraop Airway Placement: Airway type: Nasal cannula salter us Sha Stanley MD [place] ANESTHESIA Final Result Performing Organization Address [facility] Co de Phone Number [facility] [address] [place] [address] * CORONAVIRUS 2019 (07/29/2021 12:37 PM EDT) [facility] CORONAVIRUS [id number] Not Detected Not Detected 07/30/2021 9:12 AM EDT [facility] Comment: Caution should be exercised when interpreting [...] (EUA). Jayjay 6800 Fact Sheet for Providers: https://www.fda.gov/media/435054/download Jayjay 6800 Fact Sheet for Patients: https://www.fda.gov/media/157025/download Performed at [facility] [address] [place] [address]. [address] CLIA [id number] Swab BOTH ANTERIOR NARES / Unknown 07/29/2021 12:37 PM EDT 07/29/2021 12:37 PM EDT Alan Guzman MD MICROBIOLOGY - GENERAL ORDERABL ES Final Result Performing Organization Address [facility] Co de Phone Number PREFERRED [employer] [address] [place] [address] , [place] [address] * PN US OB FOLLOW UP TRANSABDOMINAL [...] ve 01/20/2021 11:32 PM EST PREFERRED LAB [facility] Blood Venipuncture / Unknown 01/20/2021 2:29 PM EST 01/20/2021 2:29 PM EST Jenni Scanlon APRN IMMUNOLOGY ORDERABLES Final Result Performing Organization Address [facility] Co de Phone Number PREFERRED [employer] [address] [facility] , [place] [address] * HEMOGLOBIN A1C (01/20/2021 2:29 PM EST) Hgb A1C 5.5 4.2 - 5.6 % 01/20/2021 9:32 PM EST [facility]ERRED [facility] Est. Avg Glucose 111 mg/dL 01/20/2021 9:32 PM EST [facility] Blood VENOUS BLOOD / Unknown Venipuncture / Unknown 01/20/2021 2:29 PM EST 01/20/2021 2:29 PM EST Narrative [facility] - 01/20/2021 9:32 PM EST REFERENCE RANGE: Normal: 4.0-5.6% Pre-diabetes: 5.7-6.4% Provisional diagnosis of diabetes: >6.4% Hgb F>10% and anything which shortens red cell survival, such as hemolytic anemia, or unstable hemoglobin variants such as HbSS, HbSC, or HbCC, will lower the HbA1c value associated with a given level of glycemic control. us Jennikerrie Amaro Megantierney DIRECTOR ORACLE CHEMISTRY ORDERABLES F inal Result PREFERRED [facility] [address] [facility] , [address] [place] [id number] * (ABNORMAL) MOLECULAR VAGINITIS PANEL (MVP) (01/15/2021 11:57 AM EST) Bacterial Vaginosis Detected(A) Not Detected 01/16/2021 11:12 AM EST [employer] [employer] Comment:Abnormal/Unbalanced vaginal microbiome as indicated by decreased concentration of healthy Lactobacillus crispatus and/or Lactobacillus jensenii with significant increased concentration of unhealthy G. vaginalis, A. vaginae, BVAB, Megasphaera-1 and/or Clostridiales. Nakaseomyces glabrata (previously Elida glabrata) Not Detected Not Detected 01/16/2021 11:12 AM EST [facility] Elida group Not Detected Not Detected 01/16/2021 11:12 AM EST [facility] Comment:C. albicans, C. trop icalis, C. parapsilosis, and/or C. dubliniensis NOT detected. Elida krusei Not Detected Not Detected 01/16/2021 11:12 AM EST PREFERRED [facility], [facility] Trichomonas vaginalis Not Detected Not Detected 01/16/2021 11:12 AM EST [employer] [employer] Swab SPECIMEN FROM VAGINA / Unknown 01/15/2021 11:57 AM EST 01/15/2021 11:57 AM EST Narrative PREFERRED LAB [facility], [facility] - 01/16/2021 11:12 AM EST Test performed using the [employer] Vaginal Panel, a real-time polymerase chain (PCR) molecular nucleic acid amplification test. us Jenni Scanlon APRN MICROBIOLOGY - GENERAL ORDERABLES Final Result [facility] [address] [facility] , [place] [address] * EXTRA FORRESTER URINE CX (09/24/2019 12:39 AM EDT) Only the most recent of2 resultswithin the time period is included. Urine URINE SPECIMEN COLLECTION, CLEAN CATCH / Unknown 09/24/2019 12:39 AM EDT 09/24/2019 12:40 AM EDT Onofre Soriano MD MICROBIOLOGY - GENERAL OR DERABLES Final Result [facility] [address] [place] [address] * (ABNORMAL) URINALYSIS (09/24/2019 12:39 AM EDT) Only the most recent of4 resultswithin the time period is included. UA Color Yellow 09/24/2019 12:50 AM EDT [facility] UA Appear Clear Clear 09/24/2019 12:50 AM EDT [facility] UA Glucose Negative Negative mg/dL 09/24/2019 12:50 AM EDT [facility] UA Ketones Negative Negative mg/dL 09/24/2019 12:50 AM EDT [facility] UA Blood Trace-Lysed (A) Negative 09/24/2019 12:50 AM EDT [facility] UA pH 6.0 5.0 - 8.0 pH 09/24/2019 12:50 AM EDT [facility] UA Protein Negative Negative mg/dL 09/24/2019 12:50 AM EDT [facility] UA Urobilinogen 0.2 <=1 mg/dL 9 12:50 AM EDT [facility] UA Bili Negative Negative 09/24/2019 12:50 AM EDT [facility] UA Nitrite Negative Negative 09/24/2019 12:50 AM EDT [facility] UA Leuk Est Small(A) Negative 09/24/2019 12:50 AM EDT [facility] UA Spec Grav 1.025 1.001 - 1.035 no units 09/24/2019 12:50 AM EDT [facility] Comment:Reference range misti d for random specimens only. UA WBC 20(H) 0 - 4 /HPF 09/24/2019 12:50 AM EDT [facility] UA RBC 3 0 - 3 /HPF 09/24/2019 12:50 AM EDT [facility] UA Squam Epi 2+ /LPF 09/24/2019 12:50 AM EDT [facility] UA Mucus Trace /LPF 09/24/2019 12:50 AM EDT [facility] UA Amorph 1+ /LPF 09/24/2019 12:50 AM EDT [facility] UA Bacteria 1+(A) Negative /HPF 09/24/2019 12:50 AM EDT [facility] Urine URINE SPECIMEN COLLECTION, CLEAN CATCH / Unknown 09/24/2019 12:39 AM EDT 09/24/2019 12:40 AM EDT us Onofre Soriano MD URINE ORDERABLES Final Re sult [facility] [address] [place], [place] [id number] * XR ACUTE ABDOMEN SUPINE ERECT AND [...] acute fracture. IMPRESSION: No acute finding. - us Onofre Soriano MD IMG DIAGNOSTIC IMAGING OR DERABLES Final Result * US RIGHT UPPER QUADRANT (09/19/2019 8:43 AM EDT) Anatomical Region Laterality Modality Abdomen Ultrasound 09/19/2019 8:43 AM EDT Impressions 09/19/2019 8:49 AM EDT Unremarkable right upper quadrant ultrasound. - - Narrative 09/19/2019 8:49 AM EDT US RIGHT UPPER QUADRANT, 09/19/2019 8:43 AM CLINICAL HISTORY: R10.9-Unspecified abdominal qozq-XHT-89-CM. COMPARISON: None. PROCEDURE COMMENTS: Ultrasound examination of [...] 09/19/2019 8:43 AM CLINICAL HISTORY: R10.9-Unspecified abdominal kswx-FVD-36-CM. COMPARISON: None. PROCEDURE COMMENTS: Ultrasound examination of [...] Unremarkable right upper quadrant ultrasound. - - Result [facility] Malcolm Herring MD IM US ORDERABLES Tatianna l Result * SHIGA TOXIN (09/15/2019 2:10 PM EDT) Pathologist [facility] Shiga Toxin Shiga toxins (produced by E. coli) not detected. Shiga toxins (produced by E. coli) not detected. 09/16/2019 12:32 PM EDT [facility] Stool SPECIMEN FROM RECTUM / Unknown 09/15/2019 2:10 PM EDT 09/15/2019 2:13 PM EDT Malcolm Herring MD MICROBIOLOGY - GENERAL ORDERABLES Final Result Performing Organization Address [facility] Co de Phone Number [facility] [employer] [address] [place] [address] , [place] [address] * STOOL CULTURE (NO STAIN) (09/15/2019 2:10 PM EDT) [facility] Culture No growth of enteric pathogens, including Salmonella, Shigella, Campylobacter, Vibrio, Yersinia, Aeromonas, Plesiomonas, or E. coli O157. 09/17/2019 11:40 AM EDT [facility] Stool SPECIMEN FROM RECTUM / Unknown 09/15/2019 2:10 PM EDT 09/15/2019 2:13 PM EDT Result [facility] Malcolm Herring MD MICROBIOLOGY - GENERAL ORDERABLES Final Result Performing Organization Address [facility] Co de Phone Number [facility] [address] [facility] , [place] [address] * OVA AND PARASITE BASIC (09/15/2019 2:10 PM EDT) Giardia Lamblia Antigen Not Detected Not detected 09/16/2019 10:52 AM EDT PREFERRED LAB [facility] Cryptosporidium Exam Not Detected Not Detected 09/16/2019 10:52 AM EDT [facility] Stool SPECIMEN FROM RECTUM / Unknown 09/15/2019 2:10 PM EDT 09/15/2019 2:13 PM EDT Malcolm Herring MD MICROBIOLOGY - GENERAL ORDERABLES Final Result [facility] [address] [facility] , [place] [address] * POCT URINALYSIS DIPSTICK (09/14/2019 2:08 PM EDT) Only the most recent of14 resultswithin the time period is included. Color, UA yellow CLEAR,YEL LOW,ORANG E,RUST SEP OFFICE Clarity, UA clear CLEAR,CHANTAL UDY SEP OFFICE Glucose, UA - G/DL% SEP OFFICE Bilirubin, UA - POS/NEG SEP OFFICE Ketones, UA - POS/NEG SEP roving hand Grav, UA 1.015 1.001 - 1.035 G/DL SEP OFFICE Blood, UA - POS/NEG SEP OFFICE pH, UA 6.0 5.0 - 8 SEP OFFICE Protein, UA trace POS/NEG SEP OFFICE Urobilinogen, UA - 0.2 - 1.0 MG/DL SEP OFFICE Leukocytes, UA 2+ POS/NEG SEP OFFICE Nitrite, UA - POS/NEG SEP OFFICE UA Appear POC SEP OFFICE Lot Number [id number] SEP OFFICE Expiration Date 12/14/2020 SEP OFFICE SeriAl # SEP OFFICE Urine 09/14/2019 2:08 PM EDT Malcolm Herring MD POINT OF CARE TEST ORD ERABLES Final Result SEP OFFICE * XR SHOULDER LEFT 3 VIEWS (07/06/2019 1:58 PM EDT) Anatomical Region Laterality Modality Shoulder Radiographic Page ging 07/06/2019 1:58 PM EDT Impressions 07/06/2019 2:41 PM EDT No acute bony abnormality of the shoulder. - Narrative 07/06/2019 2:41 PM EDT XR SHOULDER LEFT 3 VIEWS, 07/06/2019 1:58 PM CLINICAL HISTORY: M25.512-Pain in left ylczvsbq-HGF-66-CM G89.29-Other chronic hyrl-ENB-80-CM COMPARISON: None. PROCEDURE COMMENTS: Routine views. FINDINGS: The glenohumeral and acromioclavicular joints are congruent. There is no fracture. Joint spaces are maintained. Procedure Note Doug Rai MD - 07/06/2019 XR SHOULDER LEFT 3 VIEWS, 07/06/2019 1:58 PM CLINICAL HISTORY: M25.512-Pain in left cjvbjqhd-OGV-17-CM G89.29-Other chronic vrby-ZFD-92-CM COMPARISON: None. PROCEDURE COMMENTS: Routine views. FINDINGS: The glenohumeral and acromioclavicular joints are congruent. There is no fracture. Joint spaces are maintained. IMPRESSION: No acute bony abnormality of the shoulder. - us Serena Mckeon MD IMG DIAGNOSTIC IMAGING ORD ERABLES Final Result * INTRAOP AIRWAY PLACEMENT (12/24/2018 12:35 AM EST) Narrative [facility] - 12/24/2018 12:35 AM EST Erica Bello 12/24/2018 12:35 AM Intraop Airway Placement: Airway type: Nasal cannula salter Procedure Note Erica Bello - 12/24/2018 12:35 AM EST Intraop Airway Placement: Airway type: Nasal cannula salter us Bushra Burris MD [place] ANESTHESIA Final Resu lt [facility] [address] [place] [id number] * ANE EPIDURAL BLOCK (12/23/2018 2:23 PM EST) Narrative [facility] - 12/23/2018 2:23 PM EST Dorothy Uriarte CRNA 12/23/2018 2:24 PM Epidural Block by Anesthesia Procedure Date/Time: 12/23/2018 2:23 PM Staff: Resident/CUTTER OPERATOR ASBESTOS SHINGLE: DOROTHY URIARTE Performed by: PHYLLIS Patient Location: [...] Dose: Negative and lidocaine 2% (w/ epi [id number]) Test Dose Amount: 2 Number of Attempts: 1 Loading Dose: Bupivicaine 0.25% LA loading dose amount: 8 ml Assessment: Events: no complications noted Notes: Easy epi x1 at L2-3, neg heme/CSF Procedure Note Dorothy Uriarte CRNA - 12/23/2018 2:23 PM EST Epidural Block by Anesthesia Procedure Date/Time: 12/23/2018 2:23 PM Staff: Resident/CUTTER OPERATOR ASBESTOS SHINGLE: DOROTHY URIARTE Performed by: PHYLLIS Patient Location: [...] Dose: Negative and lidocaine 2% (w/ epi 1:[id number]) Test Dose Amount: 2 Number of Attempts: 1 Loading Dose: Bupivicaine 0.25% LA loading dose amount: 8 ml Assessment: Events: no complications noted Notes: Easy epi x1 at L2-3, neg heme/CSF us Bruce Portillo MD ANESTHESIA ORDERABLES Tatianna l Result [facility] [address] [place] [address] * SCANNED RADIOLOGY REPORT (08/09/2018 1:55 PM [...] Detected Not Detected 05/25/2018 3:01 PM EDT [facility]ED [facility] [facility] Thin Prep ENDOCERVICAL STRUCTURE / Unknown 05/24/2018 2:13 PM EDT 05/24/2018 2:13 PM EDT Narrative [facility] [facility] - 05/25/2018 3:01 PM EDT Test methodology is efficiency miner mediated amplification (TMA) using the Aptima Trichomonas vaginalis assay from [employer]. A negative result does not completely rule [...] characteristics of this test were validated by [facility]. This assay is FDA cleared to test the following specimens: clinician-collected endocervical and vaginal swab specimens, and clinician collected gynecological specimens collected in [employer]. Testing on first catch male and female urine is not FDA approved by this methodology, but has been developed and validated by the [facility]. Detailed methodology is available upon request. us Jenni Scanlon APRN MICROBIOLOGY - GENERAL ORDERABLES Final Result Performing Organization Address [facility]/ZIP Co de Phone Number PREFERRED LAB [facility] [address] [facility] , [address] [place] [id number] * POCT US < 14 WEEKS ABDOMINAL (05/24/2018 1:06 PM EDT) CRL cm SEP OFFICE 05/24/2018 1:06 PM EDT Alan Guzman MD POINT OF CARE IMAGING Final Res ult Performing Organization Address [facility] de Phone Number SEP OFFICE * HUMAN CHORIONIC GONADOTROPIN QUANTITATIVE (04/19/2018 7:42 PM EDT) Only the most recent of2 resultswithin the time period is included. Hcg Quant 389 mIU/mL 04/19/2018 8:25 PM EDT [facility] Blood VENOUS BLOOD / Unknown Venipuncture / Unknown 04/19/2018 7:42 PM EDT 04/19/2018 8:04 PM EDT Narrative [facility] - 04/19/2018 8:25 PM EDT < [...] ORDERABLES Fin al Result Performing Organization Address [facility] Co de Phone Number [facility] [address] [place] [address] * EXTRA LAVENDER (04/15/2018 8:27 PM EDT) Blood VENOUS BLOOD / Unknown Venipuncture / Unknown 04/15/2018 8:27 PM EDT 04/15/2018 8:32 PM EDT us Vic Wilson MD HEMATOLOGY ORDERABLES Final Res ult Performing Organization Address [facility] de Phone Number [facility] [address] [place] [address] * HCG QUALITATIVE (04/15/2018 8:27 PM EDT) Only the most recent of7 resultswithin the time period is included. HCG QUAL Positive 04/15/2018 8:51 PM EDT [facility] Blood VENOUS BLOOD / Unknown Venipuncture / Unknown 04/15/2018 8:27 PM EDT 04/15/2018 8:31 PM EDT Narrative [facility] - 04/15/2018 8:51 PM EDT Ingestion of amanda doses of biotin (>5 mg/day) taken within 8 hours of drawing blood sample can interfere with this immunoassay test. us Vic Wilson MD CHEMISTRY ORDERABLES Final Resu lt Performing Organization Address [facility] de Phone Number [facility] [address] [place] [address] * XR KNEE RIGHT AP LAT INT [...] IMPRESSION: No acute abnormality of the knee. Result [facility] Fawad Sullivan MD [facility] IM[facility] Final Result * XR CHEST PA [...] or effusion.No pneumothorax. IMPRESSION: No acute finding. Result [facility] Cecy Tejada APRN [facility] Final Result * (ABNORMAL) BASIC METABOLIC PANEL (03/07/2018 6:47 PM EDT) Only the most recent of2 resultswithin the time period is included. Sodium 143 136 - 145 mmol/L 03/07/2018 7:30 PM EDT [facility] Potassium 3.9 3.5 - 5.0 mmol/L 03/07/2018 7:30 PM EDT [facility] Chloride 102 98 - 107 mmol/L 03/07/2018 7:30 PM EDT [facility] Total CO2 24 22 - 29 mmol/L 03/07/2018 7:30 PM EDT [facility] Anion Gap 17(H) 7 - 16 mmol/L 03/07/2018 7:30 PM EDT [facility] Calcium 9.7 8.6 - 10.2 mg/dL 03/07/2018 7:30 PM EDT [facility] Glucose Lvl 86 74 - 100 mg/dL 03/07/2018 7:30 PM [facility] BUN 14 6 - 20 mg/dL 03/07/2018 7:30 PM T [facility] Creatinine 0.65 0.51 - 1.30 mg/dL 03/07/2018 7:30 PM [facility] GFR Afr Am 146 mL/min/1.7 3 m2 03/07/2018 7:30 PM [facility] GFR Non Afr Am 126 mL/min/1.7 3 m2 03/07/2018 7:30 PM [facility] Comment: GFR Afr Am and GFR [...] Cecy Tejada APRN CHEMISTRY ORDERABLES Final Result [facility] [address] [place] [address] * (ABNORMAL) GLUCOSE METER POC (02/07/2018 1:10 PM EDT) [facility] Glucose Meter POC 101(H) 70 - 100 mg/dL 02/07/2018 1:12 PM EDT [facility] Sample Type Capillary 02/07/2018 1:12 PM EDT [facility] Patient Status Non-Critical Patient 02/07/2018 1:12 PM EDT [facility] Blood BLOOD SPECIMEN / Unknown 02/07/2018 1:10 PM EDT 02/07/2018 1:11 PM EDT us Mildred Islas MD POINT OF CARE TEST ORDERABL ES Final Result Performing Organization Address City/[facility]/[place] [address] * DIFFERENTIAL (03/24/2017 10:53 AM EDT) Only the most recent of2 resultswithin the time period is included. Neut Percent 61.7 % [facility] Lymph Percent 26.3 % [facility] Branch Percent 4.8 % [facility] Eos Percent 6.8 % [facility] Baso Percent 0.4 % [facility] Neut# 4.4 1.8 - 7.7 x10(3)/mcL [facility] Lymph# 1.9 0.6 - 4.8 x10(3)/[facility] Branch# 0.3 0.0 - 1.3 x10(3)/[facility] Eos# 0.5 0.0 - 0.5 x10(3)/[facility] Baso# 0.0 0.0 - 0.2 x10(3)/[facility] Blood specimen (specimen) 03/24/2017 10:53 AM EDT 03/24/2017 3:21 PM EDT us Carmenza PAREDES HEMATOLOGY ORDERABLES Final Result Performing Organization Address City/[facility]/ZIP Co de Phone Number [address] [address] * BORDETELLA PERTUSSIS PCR (02/17/2017 9:59 PM EDT) Bordetella Pertussis PCR Negative [facility] Comment: TEST INFORMATION: This assay qualitatively detects a DNA element of Bordetella pertussis from nasal pharyngeal swabs. This assay may also detect Bordetella holmesii and Bordetella brochiseptica. This assay is an FDA approved amplified DNA test by [employer] and its performance has been verified by the [facility]. A negative result does not rule out the presence of the Bordetella pertussis in concentrations below the limit of detection for the assay. Nasopharyngeal swab (specimen) 02/17/2017 9:59 PM EDT 02/18/2017 9:23 AM EDT Nakul Wilson APRN MICROBIOLOGY - GENERAL ORDE BRIEN Final Result [facility] [address] [place] [address] * CT ABDOMEN PELVIS WO ORAL OR [...] osseous, joint or soft tissue abnormality isseen. us [facility] ORDERABL ES Final Result Visit [...] virus detected 11/02/2022 Nausea Nausea alone 11/02/2022 Pearl eye disease of left eye 11/17/2022 Acute [...] antepartum 05/28/2023 Family history of SIDS (sudden syndrome) Family history of other condition 05/28/2023 [...] failure, 08/03/2023 Family history of SIDS (sudden infant syndrome) Family history of other condition 08/03/2023 [...] Upper respiratory tract infection, unspecified type 07/22/2025 Upper respiratory tract infection, unspecified type 10/31/2025 Encounter for initial prescription of injectable contraceptive General counseling for initiation of other contraceptive measures 10/31/2025 Menorrhagia with regular cycle Excessive or frequent menstruation 10/31/2025 Upper respiratory tract infection, unspecified type 11/01/2025 Influenza A Influenza with other respiratory manifestations 11/14/2025 Acute otitis media with effusion of left ear 11/14/2025 Failure of descent in labor, delivered, current [...] weight General No Jump, Kary Villegas, RMA Care Teams Toddler Nanny Relationship Specialty Start Date End Date Adwoa Colon APRN [address] [place] [id number] PCP - General Nurse Practitioner 04/06/19
--- OUTSIDE RECORDS SUMMARY | 2025-11-19 10:32 | XMS_ITS | Encounter Summary ---
Author Organization [place] [address] Care Team Providers Care Elevator Builder Name Role Phone Adwoa Colon APRN Primary Care Provider [phone] Reason for Visit * Reason Onset Date Comments Cold 11/13/2025 Encounter Details Date Type Department Care Team (Late Contact Info) Description 11/13/2025 Nurse Triage [facility] Nurse Now [address] [place] [address] Adwoa Shabazz, VIDHYA Social History Tobacco Use Types Packs/Day Years [...] Author No 11/07/2024 11:05 AM Ame Hagen BrowningALETA saleem documented as of this encounter Mental Status * Because of a physical, mental or emotional condition, does this person have serious difficulty concentrating, remembering or making decisions? Answer Entry Date Author No 11/07/2024 11:05 AM Devendra Hagentawanda Browning ALETA documented in this encounter Miscellaneous Notes * Telephone Encounter - Adwoa Shabazz RN - 11/13/2025 3:52 PM EST Nurse Triage Call -Chief Complaint: last PM- woke up with headache. Chilling. Coughing. Ear pain. Fever last PM - 101- fever broke. -Reported by: Patient -Vitals: No vitals obtained on this call -Disposition per protocol: see today or tomorrow in office. -Scheduled an appointment with PCP -Follow up/Concerns: reviewed care advice Reason for Disposition Patient wants to be seen Answer Assessment - Initial Assessment Questions 1. ONSET: When did the cough begin? yesterday 2. SEVERITY: How bad is the cough today? Worse throughout day 3. SPUTUM: Describe the color of your sputum (none, dry cough; clear, white, yellow, green) Clear phlegm 4. HEMOPTYSIS: Are you coughing up any blood? If so ask: How much? (flecks, streaks, tablespoons, etc.) denies 5. DIFFICULTY BREATHING: Are you having difficulty breathing? If Yes, ask: How bad is it? (e.g., mild, moderate, severe) - MILD: No SOB at rest, mild SOB with walking, speaks normally in sentences, can lie down, no retractions, pulse < 100. - MODERATE: SOB at rest, SOB with minimal exertion and prefers to sit, cannot lie down flat, speaksin phrases, mild retractions, audible wheezing, pulse 100-120. - SEVERE: Very SOB at rest, speaks in single words, struggling to breathe, sitting hunched forward,retractions, pulse > 120 denies 6. FEVER: Do you have a fever? If Yes, ask: What is your temperature, how was it measured, and when did it start? Fever last night- chilling throughout day today 7. CARDIAC HISTORY: Do you have any history of heart disease? (e.g., heart attack, congestive heart failure) denies 8. LUNG HISTORY: Do you have any history of lung disease? (e.g., pulmonary embolus, asthma, emphysema) denies 9. PE RISK FACTORS: Do you have a history of blood clots? (or: recent major surgery, recent prolonged travel, bedridden) denies 10. OTHER SYMPTOMS: Do you have any other symptoms? (e.g., runny nose, wheezing, chest pain) Headache, ear pain- left, fever 11. : Is there any chance you are ? When was your last menstrual period? denies 12. TRAVEL: Have you traveled out of the country in the last month? (e.g., travel history, exposures) denies Protocols used: Cough-A-OH documented in this encounter Plan of Treatment Not on file documented as of this encounter Goals Goal Patient Goal Type Associated Problems Recent Progress Patient-Stated? Author Eat better, exercise, reach an ideal body weight General No Jump, Kary Nelly, RMA documented as of this encounter Visit Diagnoses Not on filedocumented in this encounter Care Teams Elevator Builder Relationship Specialty Start Date End Date Adwoa Colon APRN [address] [place] [address] PCP - General Nurse Practitioner 04/06/19 documented as of this encounter
--- OUTSIDE RECORDS SUMMARY | 2025-11-19 10:32 | XMS_ITS | Encounter Summary ---
Author Organization [place] [address] Care Team Providers Care Business Info Consultant Name Role Phone Isaiah Adwoa Gabriela JACINTO Primary Care Provider [phone] Reason for Visit * Reason Onset Date Comments Medication Refill 10/31/2025 Encounter Details Date Type Department Care Team (Late Contact Info) Description 10/31/2025 Refill SEP [facility] Health Video Visits [address] [place] [address] Tonya Montalvo APRN [address] [place] [address] Medication Refill Social History Tobacco Use Types Packs/Day Years [...] Author No 11/07/2024 11:05 AM Ame Hagen RMMonalisa * Does this person have serious difficulty walking or climbing stairs? Answer Date of Assessment Author No 11/07/2024 11:05 AM Ame Hagen RMMonalisa * Does this person have difficulty dressing or bathing? Answer Date of Assessment Author No 11/07/2024 11:05 AM Ame Hagen ALETA * Because of a physical, mental or emotional condition, does this person have difficulty doing errands alone such as visiting a doctor's office or shopping? Answer Date of Assessment Author No 11/07/2024 11:05 AM Ame Hagen ALETA documented as of this encounter Mental Status * Because of a physical, mental or emotional condition, does this person have serious difficulty concentrating, remembering or making decisions? Answer Entry Date Author No 11/07/2024 11:05 AM Ame Hagen ALETA documented in this encounter Plan of Treatment Not on file documented as of this encounter Goals Goal Patient Goal Type Associated Problems Recent Progress Patient-Stated? Author Eat better, exercise, reach an ideal body weight General No Jump, ALETA Ambriz documented as of this encounter Visit Diagnoses Diagnosis Upper respiratory tract infection, unspecified type documented in this encounter Care Teams Business Info Consultant Relationship Specialty Start Date End Date Adwoa Colon APRN [address] [place] [phone] PCP - General Nurse Practitioner 04/06/19 documented as of this encounter
--- OUTSIDE RECORDS SUMMARY | 2025-11-19 10:32 | XMS_ITS | Encounter Summary ---
Author Organization [place] [address] Care Team Providers Care Anodizer Name Role Phone Adwoa Colon APRN Primary Care Provider [phone] Encounter Details Date Type Department Care Team (Late st Contact Info) Description 02/21/2019 Lab Requisition [facility] [address] [place] [id number] [address] Encounter for screening for malignant neoplasm of [...] Procedure Name Priority Date/Time Associated Diagnosis Comments MASTER [employer]IST CYTOLOGY REQUEST (PAP ONLY) Routine 02/21/2019 12:00 PM EDT Encounter for screening for malignant neoplasm of cervix documented in this encounter Results * MASTER [employer] PARACHUTIST CYTOLOGY REQUEST (PAP ONLY) (02/21/2019 12:00 PM EDT) CASE REPORT Gynecologic Cytology Report Case: [id number] Authorizing Provider: Department, [employer] [employer]. Collected: 02/21/2019 [facility] Screen: Alina Gonzalez CT Received: 02/21/2019 1905 Rescreen: Anika Tolentino CT Specimen: LIQUID-BASED PAP - CERVICAL/ENDOCERV ICAL, Cervix, Endocervical 02/22/2019 3:29 PM EDT [facility] PAP FINAL DIAGNOSIS Negative for intraepithelial lesion or malignancy 02/22/2019 3:29 PM EDT [facility] at 1529 EDT MICROSCOPIC DESCRIPTION Microscopic examination is performed and the findings corroborate the diagnosis. 02/22/2019 3:29 PM EDT [facility] PAP SMEAR ADEQUACY Satisfactory for evaluation 02/22/2019 3:29 PM EDT [facility] ENDOCERVICAL T-ZONE Transformation zone absent. This is not unusual in a woman 02/22/2019 3:29 PM EDT [facility] EMBEDDED IMAGES 9 3:29 PM EDT [facility] PAP DISCLAIMER The Pap Smear is a screening test that aids in the detection of cervical cancer and cancer precursors. Both false positive and false negative results can occur. The test should be used at regular intervals, and positive results should be confirmed before definitive therapy. Processed using the [employer]in[employer]ception[employer] Automated cytology screening device ([employer]). 02/22/2019 3:29 PM EDT [facility] Thin Prep ENDOCERVICAL STRUCTURE / Unknown 02/21/2019 12:00 PM EDT 02/21/2019 7:05 PM EDT [facility] Department CYTOLOGY ORDERABLES Final Result [address] [address] documented in this encounter Visit Diagnoses Diagnosis [...] documented as of this encounter Care Teams Anodizer Relationship Specialty Start Date End Date Adwoa Colon APRN [address] [place] [address] PCP - General Nurse Practitioner 04/06/19 documented as of this encounter
--- OUTSIDE RECORDS SUMMARY | 2025-11-19 10:32 | XMS_ITS | Encounter Summary ---
Author Organization [place] [address] Care Team Providers Care Core Winding Operator Name Role Phone Isaiah Adwoa Gabriela JACINTO Primary Care Provider [phone] Reason for Visit * Reason Onset Date Comments Medication Refill 10/31/2025 Encounter Details Date Type Department Care Team (Late st Contact Info) Description 10/31/2025 Refill [facility]f [address] [place] [address] Kayla Conti, DO [address] [place] [address] Medication Refill Social History Tobacco Use Types [...] as of this encounter Visit Diagnoses Diagnosis Encounter for initial prescription of injectable contraceptive General counseling for initiation of other contraceptive measures Menorrhagia with regular cycle Excessive or frequent menstruation documented in this encounter Care Teams Core Winding Operator Relationship Specialty Start Date End Date Adwoa Colon APRN [address] [place] [address] PCP - General Nurse Practitioner 04/06/19 documented as of this encounter
--- OUTSIDE RECORDS SUMMARY | 2025-11-19 10:32 | XMS_ITS | Encounter Summary ---
Author Organization [place] [address] Care Team Providers Care Badger Distiller Operator Name Role Phone Adwoa Colon APRN Primary Care Provider [phone] Reason for Visit * Reason Comments Medication Refill Encounter Details Date Type Department Care Team (Late Contact Info) Description 11/01/2025 Refill SEP [facility] Health Video Visits [address] [place] [address] Tonya Montalvo APRN [address] [place] [address] Medication Refill Social History Tobacco Use Types [...] Author No 11/07/2024 11:05 AM Ame Hagen RMDarling * Because of a physical, mental or emotional condition, does this person have difficulty doing errands alone such as visiting a doctor's office or shopping? Answer Date of Assessment Author No 11/07/2024 11:05 AM MELA Cisneros Ame Browning ALEAT documented as of this encounter Mental Status [...] type documented in this encounter Care Teams Badger Distiller Operator Relationship Specialty Start Date End Date Adwoa Colon APRN [address] [place] [phone] PCP - General Nurse Practitioner 04/06/19 documented as of this encounter
== END 2025-11-19 23:59 ==
LOC: RAD 10:18
PROVIDERS: Visit Provider Orthopaedic Surgery
DX: S92.352D Displaced fracture of fifth metatarsal bone, left foot, subsequent encounter for fracture with routine healing (principal); X58.XXXD Exposure to other specified factors, subsequent encounter
CPT/HCPCS: 73630